=== PATIENT | female | born 1950 | race Caucasian/White ===

== ENCOUNTER 2016-10-11 08:00 | Outpatient (CLI) | payer MEDICAID | END 2016-10-11 08:01 | disposition home or self-care (01) | DX: E11.9 Type 2 diabetes mellitus without complications (principal); I10 Essential (primary) hypertension ==

== ENCOUNTER 2016-10-22 14:11 | Emergency (ER) | payer MEDICAID ==
[2016-10-22] MEDS ORDERED: HYDROmorphone 1 MG/ML SYRINGE IM STA (14:26)
[2016-10-22] MEDS ORDERED: HYDROmorphone 1 MG/ML SYRINGE ONE (14:26)
== END 2016-10-22 14:35 | disposition home or self-care (01) ==
DX: M54.5 Low back pain (principal); Z86.73 Personal history of transient ischemic attack (TIA), and cerebral infarction without residual deficits; Z66 Do not resuscitate; R03.0 Elevated blood-pressure reading, without diagnosis of hypertension; E11.9 Type 2 diabetes mellitus without complications; Z79.84 Long term (current) use of oral hypoglycemic drugs
CPT/HCPCS: 96372; 99283; 99284; J1170

== ENCOUNTER 2016-10-31 14:43 | Outpatient (CLI) | payer MEDICAID | END 2016-10-31 14:44 | disposition home or self-care (01) | DX: M25.562 Pain in left knee (principal); M17.12 Unilateral primary osteoarthritis, left knee ==

== ENCOUNTER 2016-12-08 12:05 | Outpatient (CLI) | payer MEDICAID | END 2016-12-08 12:25 | disposition critical access hospital (66) | LOC: EMS 12:05 | PROVIDERS: ATTEND Surgery | DX: R51 Headache (principal); M54.5 Low back pain | CPT/HCPCS: A0425; A0429 ==

== ENCOUNTER 2016-12-08 12:26 | Emergency (ER) | payer MEDICAID ==
[2016-12-08] MEDS ORDERED: KETOROLAC 60 MG/2 ML VIAL IM STA (13:21)
[2016-12-08] MEDS ORDERED: HYDROmorphone 1 MG/ML SYRINGE IM STA (13:21)
[2016-12-08] MEDS ORDERED: ONDANSETRON 4 MG/2 ML VIAL IM STA (13:21)
[2016-12-08] MEDS ORDERED: HYDROmorphone 1 MG/ML SYRINGE ONE (13:28)
[2016-12-08] MEDS ORDERED: ONDANSETRON 4 MG/2 ML VIAL ONE (13:28)
[2016-12-08] MEDS ORDERED: KETOROLAC 60 MG/2 ML VIAL ONE (13:28)
== END 2016-12-08 14:36 | disposition home or self-care (01) ==
DX: G43.009 Migraine without aura, not intractable, without status migrainosus (principal); M54.40 Lumbago with sciatica, unspecified side; E11.9 Type 2 diabetes mellitus without complications; Z79.84 Long term (current) use of oral hypoglycemic drugs; I10 Essential (primary) hypertension; I48.91 Unspecified atrial fibrillation; Z79.02 Long term (current) use of antithrombotics/antiplatelets; J44.9 Chronic obstructive pulmonary disease, unspecified; Z66 Do not resuscitate

== ENCOUNTER 2016-12-08 16:19 | Outpatient (CLI) | payer MEDICAID | END 2016-12-08 16:20 | disposition critical access hospital (66) | LOC: EMS 16:19 | PROVIDERS: ATTEND Surgery | DX: S09.90XA Unspecified injury of head, initial encounter (principal); W18.30XA Fall on same level, unspecified, initial encounter; Y92.039 Unspecified place in apartment as the place of occurrence of the external cause | CPT/HCPCS: A0425; A0429 ==

== ENCOUNTER 2016-12-08 16:41 | Emergency (ER) | payer MEDICAID ==
[2016-12-08] MEDS ORDERED: oxyCOD/ACETAMIN 5 MG/325 MG TABLET PO STA (16:47)
[2016-12-08] MEDS ORDERED: oxyCOD/ACETAMIN 5 MG/325 MG TABLET PO ONE (16:58)
[2016-12-08] MEDS ORDERED: IOPAMIDOL-300 100 ML VIAL IVP ONE (19:17)
[2016-12-08] MEDS ORDERED: KETOROLAC 60 MG/2 ML VIAL IVP STA (20:28)
[2016-12-08] MEDS ORDERED: KETOROLAC 30 MG/ML VIAL ONE (20:30)
== END 2016-12-09 00:55 | disposition home or self-care (01) ==
DX: S09.90XA Unspecified injury of head, initial encounter (principal); S00.03XA Contusion of scalp, initial encounter; W01.198A Fall on same level from slipping, tripping and stumbling with subsequent striking against other object, initial encounter; Y93.89 Activity, other specified; Y92.000 Kitchen of unspecified non-institutional (private) residence as the place of occurrence of the external cause; Y99.8 Other external cause status; G43.911 Migraine, unspecified, intractable, with status migrainosus; R09.02 Hypoxemia; E87.2 Acidosis; R60.0 Localized edema; E66.01 Morbid (severe) obesity due to excess calories; Z68.42 Body mass index [BMI] 45.0-49.9, adult; M54.40 Lumbago with sciatica, unspecified side; E11.9 Type 2 diabetes mellitus without complications; Z79.84 Long term (current) use of oral hypoglycemic drugs; I10 Essential (primary) hypertension; I48.91 Unspecified atrial fibrillation; Z79.02 Long term (current) use of antithrombotics/antiplatelets; J44.9 Chronic obstructive pulmonary disease, unspecified; Z86.73 Personal history of transient ischemic attack (TIA), and cerebral infarction without residual deficits; Z66 Do not resuscitate
CPT/HCPCS: 36415; 36600; 70450; 71275; 80053; 82803; 83690; 85025; 96372; 96374; 99283; 99284; A9270; J1170; Q9967

== ENCOUNTER 2016-12-09 06:52 | Outpatient (CLI) | payer MEDICAID | END 2016-12-09 06:53 | disposition EMS.NT | DX: Z03.89 Encounter for observation for other suspected diseases and conditions ruled out (principal); W06.XXXA Fall from bed, initial encounter; Y92.003 Bedroom of unspecified non-institutional (private) residence as the place of occurrence of the external cause ==

== ENCOUNTER 2017-01-10 08:48 | Outpatient (CLI) | payer MEDICAID | END 2017-01-10 08:49 | disposition home or self-care (01) | DX: E78.1 Pure hyperglyceridemia (principal); E11.9 Type 2 diabetes mellitus without complications ==

== ENCOUNTER 2017-02-06 10:20 | Outpatient (CLI) | payer MEDICAID | END 2017-02-06 10:21 | disposition home or self-care (01) | LOC: SC 10:20 | PROVIDERS: ATTEND Nurse Practitioner Family | DX: G47.33 Obstructive sleep apnea (adult) (pediatric) (principal) | CPT/HCPCS: 99212; 99213 ==

== ENCOUNTER 2017-02-14 15:54 | Outpatient (CLI) | payer MEDICAID | END 2017-02-14 15:55 | disposition critical access hospital (66) | LOC: EMS 15:54 | PROVIDERS: ATTEND Surgery | DX: M79.605 Pain in left leg (principal); M54.5 Low back pain; W18.39XA Other fall on same level, initial encounter; Y92.039 Unspecified place in apartment as the place of occurrence of the external cause | CPT/HCPCS: A0425; A0429 ==

== ENCOUNTER 2017-02-14 16:13 | Emergency (ER) | payer MEDICAID ==
[2017-02-14 16:21] VITALS: BP 119/65
[2017-02-14] MEDS ORDERED: HYDROcod/ACETAM 5/325 MG TABLET PO STA (16:26)
[2017-02-14] MEDS ORDERED: LIDOCAINE PATCH 5% TOP STA (16:26)
--- NOTE | 2017-02-14 16:28 | ED Physician Documentation ---
History of Present Illness - Stated complaint Stated Complaint: BACK PX - Chief complaint Chief Complaint: Back Pain - Additonal information Additional information: hx from pt 66 f known spinal stenosis, has had imaging, has a economic development specialist, is planning to get surgery ever increasing back pain and occasional radicular pain to ant left leg spine rx norco 1-2 per day pain is still severe today pain was bad enough to cause her L leg to give way - no fall though some numbness to ant L thigh has been present a week pt has not yet called her economic development specialist or PMD about the increasing pain no abd pain no fever no urinary sx no incont Review of Systems Constitutional: denies: Fever Cardiac: denies: Chest pain / pressure GI: denies: Abdominal Pain : denies: Dysuria, Incontinent Musculoskeletal: reports: Back pain Neurologic: reports: Focal weakness (L leg ghave way 2/2 pain, prior CVA left right leg slightly weak), Numbness (ant L thigh X 1 week) Immunocompromised: denies: Immunocompromised PD PAST MEDICAL HISTORY - Past Medical History Cardiovascular: Hypertension, Atrial fibrillation Respiratory: COPD, Shortness of breath, CPAP use Neuro: CVA Endocrine/Autoimmune: Type 2 diabetes GI: Hiatal hernia, Cholelithiasis 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 : 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 HEENT: Other Psych: Depression Musculoskeletal: None Derm: None - Past Surgical History Past Surgical History: Yes General: Cholecystectomy, Appendectomy, Bowel surgery, Hiatal hernia repair, Colonoscopy Ortho: Other /SPONSORSHIP COORDINATOR: section HEENT: Tonsil/Adenoidectomy - Present Medications Home Medications: Ambulatory Orders Medication Instructions Recorded Confirmed Fenofibrate [Lipofen] 54 mg PO HS 02/18/13 02/14/17 Calcium Carb/Vit D3/Minerals 1 each PO DAILY 12/26/13 02/14/17 [Calcium 1,200 mg Tablet Chew] Cholecalciferol (Vitamin D3) 2,000 unit PO DAILY 12/26/13 02/14/17 [Vitamin D] Clopidogrel [Plavix] 75 mg PO DAILY 01/06/14 02/14/17 Sertraline HCl [Zoloft] 100 mg PO QDBREAKFAST 12/03/14 02/14/17 Acetaminophen [Tylenol Extra 1,000 mg PO DAILY PRN 12/12/14 02/14/17 Strength] Vitamin B Complex 1,000 mg PO DAILY 01/04/15 02/14/17 Topiramate [Topiramate ER] 50 mg PO BID 07/27/15 02/14/17 Trazodone HCl 100 mg PO QPM 01/23/16 02/14/17 Albuterol Sulfate [Proventil Hfa 1 - 2 puffs IH Q4H PRN #1 02/22/16 02/14/17 Inhaler] hfa.aer.ad Bupropion HCl [Wellbutrin Sr] 300 mg PO DAILY 03/22/16 02/14/17 Gabapentin 600 mg PO TID 03/22/16 02/14/17 metFORMIN [Glucophage] 500 mg PO BID 03/22/16 02/14/17 Magnesium Hydroxide [Milk of 400 mg PO DAILY PRN #240 ml 07/29/16 02/14/17 Magnesia] HYDROcod/ACETAM 5/325 [[place] 5/325] 1 - 2 ea PO Q6H PRN #15 tablet 10/22/16 Amitriptyline [Elavil] 25 mg QPM 12/08/16 02/14/17 Fenofibrate 54 mg PO DAILY 02/14/17 02/14/17 Lidocaine Patch 5% [Lidoderm Patch] 1 each TOP DAILY PRN #10 patch 02/14/17 - Allergies Allergies/Adverse Reactions: Allergies Allergy/AdvReac Type Severity Reaction Status Date / Time No Known Drug Allergies Allergy Verified 12/08/16 16:52 - Social History Does the pt smoke?: No Smoking Status: Never smoker Does the pt drink ETOH?: No Does the pt have substance abuse?: No - Immunizations Immunizations are current?: Yes Immunizations: TDAP >10years/unknown - POLST Patient has POLST: Yes POLST Status: DNR PD ED PE NORMAL - Vitals Vital signs reviewed: Yes - Cardiac Cardiac: RRR - Respiratory Respiratory: No respiratory distress, Clear bilaterally - Abdomen Abdomen: Soft, Non tender, Other (no pulsatile mass) - Back Back: No spinal TTP (no redness warmth swelling), Other (TTP soft tissue very low lumbar region near pelvis) - Neuro Neuro: No motor deficit, No sensory deficit, Other (deneis saddle anesthesia, patellar DTR 1/4 yajaira, no ankle clonus, neg SLR yajaira, hip flex and knee ext approx 4/5 yajaira, foot dorsi plantar and great toe ext 5/5) Results - Vitals Vitals: Vital Signs - 24 hr 02/14/17 16:17 Temperature 36.7 C Heart Rate 100 Respiratory 20 Rate Blood Pressure 119/65 O2 Saturation 95 Oxygen O2 Source [With Activity] Nasal cannula O2 Source [Without Activity] Room air O2 Source Room air PD MEDICAL DECISION MAKING - ED course ED course: pt has increasing but chronic back pain that has already been imaged and worked up and she is under the care of a economic development specialist has rx for norco txed for acute pain with hydrocodone and lido patch in ER will add lido patches rx pt should call and discuss any further pain management / med adjustments with her PMD or economic development specialist Departure - Departure Disposition: Home, Self Care Clinical Impression: Back pain Qualifiers: Back pain location: low back pain Chronicity: chronic Back pain laterality: left Sciatica presence: without sciatica Qualified Code(s): M54.5 - Low back pain Condition: Good Instructions: ED Neck Back Pain General Follow-Up: Jim Potter MD [Primary Care Provider] - Prescriptions: Lidocaine Patch 5% [Lidoderm Patch] 1 each TOP DAILY PRN #10 patch PRN Reason: Pain Comments: Please talk to your economic development specialist about your increasing pain and about any further medication adjustments. In the mean time try adding the lidocaine patches - you can apply one patch to the spot that hurts the most for up to 12 hr a day Return if worse - specifically if you have any numbness to the groin, leaking urine, severe or bilateral weakness/numbness Discharge Date/Time: 02/14/17 16:46
[2017-02-14] MEDS ORDERED: HYDROcod/ACETAM 5/325 MG TABLET ONE (16:30)
[2017-02-14] MEDS ORDERED: LIDOCAINE PATCH 5% TOP ONE (16:30)
== END 2017-02-14 16:46 | disposition home or self-care (01) ==
LOC: EDUNIT# → ED 16:13
DX: M54.5 Low back pain (principal); I10 Essential (primary) hypertension; I48.91 Unspecified atrial fibrillation; J44.9 Chronic obstructive pulmonary disease, unspecified; E11.9 Type 2 diabetes mellitus without complications; Z86.73 Personal history of transient ischemic attack (TIA), and cerebral infarction without residual deficits
CPT/HCPCS: 99283; A9270

== ENCOUNTER 2017-03-12 20:55 | Emergency (ER) | payer MEDICAID ==
--- NOTE | 2017-03-12 21:11 | ED Physician Documentation ---
PD HPI BACK PAIN - Stated complaint Stated Complaint: BACK PX - Chief complaint Chief Complaint: Back Pain - History obtained from History obtained from: Patient - History of Present Illness Timing - onset: Chronic (chronic LBP but tonight inadequate relief with her ibuprofen and hydrocodone) Timing - details: Constant, Waxing and waning Pain level now: 10 Location: Lower, Left Quality: Pain, Similar to prior episodes Associated symptoms: No: Fever, Weakness, Numbness Improves with: Rest Worsened by: Movement Similar symptoms before: Diagnosis (spinal stenosis) Recently seen: Emergency Dept (T+R last month for similar symptoms) Review of Systems Constitutional: denies: Fever, Chills, Sweats Cardiac: reports: Reviewed and negative Respiratory: reports: Reviewed and negative GI: reports: Reviewed and negative : denies: Incontinent Musculoskeletal: reports: Back pain Neurologic: denies: Focal weakness, Numbness PD PAST MEDICAL HISTORY - Past Medical History Cardiovascular: Hypertension, Atrial fibrillation Respiratory: COPD, Shortness of breath, CPAP use Neuro: CVA Endocrine/Autoimmune: Type 2 diabetes GI: Hiatal hernia, Cholelithiasis 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 HEENT: Other Psych: Depression Musculoskeletal: None Derm: None - Past Surgical History Past Surgical History: Yes General: Cholecystectomy, Appendectomy, Bowel surgery, Hiatal hernia repair, Colonoscopy Ortho: Other /REELING MACHINE OPERATOR: section HEENT: Tonsil/Adenoidectomy - Present Medications Home Medications: Ambulatory Orders Medication Instructions Recorded Confirmed Fenofibrate [Lipofen] 54 mg PO HS 02/18/13 02/14/17 Calcium Carb/Vit D3/Minerals 1 each PO DAILY 12/26/13 02/14/17 [Calcium 1,200 mg Tablet Chew] Cholecalciferol (Vitamin D3) 2,000 unit PO DAILY 12/26/13 02/14/17 [Vitamin D] Clopidogrel [Plavix] 75 mg PO DAILY 01/06/14 02/14/17 Sertraline HCl [Zoloft] 100 mg PO QDBREAKFAST 12/03/14 02/14/17 Acetaminophen [Tylenol Extra 1,000 mg PO DAILY PRN 12/12/14 02/14/17 Strength] Vitamin B Complex 1,000 mg PO DAILY 01/04/15 02/14/17 Topiramate [Topiramate ER] 50 mg PO BID 07/27/15 02/14/17 Trazodone HCl 100 mg PO QPM 01/23/16 02/14/17 Albuterol Sulfate [Proventil Hfa 1 - 2 puffs IH Q4H PRN #1 02/22/16 02/14/17 Inhaler] hfa.aer.ad Bupropion HCl [Wellbutrin Sr] 300 mg PO DAILY 03/22/16 02/14/17 Gabapentin 600 mg PO TID 03/22/16 02/14/17 metFORMIN [Glucophage] 500 mg PO BID 03/22/16 02/14/17 Magnesium Hydroxide [Milk of 400 mg PO DAILY PRN #240 ml 07/29/16 02/14/17 Magnesia] HYDROcod/ACETAM 5/325 [[place] 5/325] 1 - 2 ea PO Q6H PRN #15 tablet 10/22/16 Amitriptyline [Elavil] 25 mg QPM 12/08/16 02/14/17 Fenofibrate 54 mg PO DAILY 02/14/17 02/14/17 Lidocaine Patch 5% [Lidoderm Patch] 1 each TOP DAILY PRN #10 patch 02/14/17 - Allergies Allergies/Adverse Reactions: Allergies Allergy/AdvReac Type Severity Reaction Status Date / Time No Known Drug Allergies Allergy Verified 12/08/16 16:52 - Social History Does the pt smoke?: No Smoking Status: Never smoker Does the pt drink ETOH?: No Does the pt have substance abuse?: No - Immunizations Immunizations are current?: Yes Immunizations: TDAP >10years/unknown - POLST Patient has POLST: Yes POLST Status: DNR PD ED PE NORMAL - Vitals Vital signs reviewed: Yes - General General: Alert and oriented X 3, Well developed/nourished, Other (appears uncomfortable due to pain) - Cardiac Cardiac: RRR, No murmur - Respiratory Respiratory: No respiratory distress, Clear bilaterally - Abdomen Abdomen: Soft, Non tender, Other (morbidly obese) - Extremities Extremities: No edema - Neuro Neuro: No motor deficit, No sensory deficit, Other (5/5 bilateral dorsi/ plantarflexion, LTS intact BLE, 2+/4 bilateral patellar DTRs) Results - Vitals Vitals: Vital Signs - 24 hr 03/12/17 03/12/17 03/12/17 21:02 21:52 22:19 Temperature 37.2 C Heart Rate 102 H 95 97 Respiratory 16 18 18 Rate Blood Pressure 175/89 H 162/89 H O2 Saturation 96 95 93 03/12/17 03/13/17 03/13/17 23:23 01:14 04:31 Temperature 36.8 C Heart Rate 96 74 74 Respiratory 18 19 16 Rate Blood Pressure 154/97 H 123/80 142/90 H O2 Saturation 93 94 96 Oxygen O2 Source [With Activity] Nasal cannula O2 Source [Without Activity] Room air O2 Source Room air PD MEDICAL DECISION MAKING - ED course Complexity details: reviewed old records, re-evaluated patient, considered differential, d/w patient ED course: patient had good relief after second dose of IM dilaudid (also given PO flexeril and decadron) and was able to ambulate to and from bathroom (using her walker). Held in ED for several hours while waiting for her ride. Departure - Departure Disposition: 01 Home, Self Care Clinical Impression: Back pain Condition: Good Instructions: ED Sciatica Follow-Up: Jim Potter MD [Primary Care Provider] - Discharge Date/Time: 03/13/17 04:31
[2017-03-12] MEDS ORDERED: HYDROmorphone 1 MG/ML SYRINGE IM STA ×2 (21:29→23:29)
[2017-03-12] MEDS ORDERED: DEXAMETHASONE 10 MG/ML VIAL PO STA (21:30)
[2017-03-12] MEDS ORDERED: CYCLOBENZAPRINE 10 MG TABLET PO STA (21:30)
[2017-03-12] MEDS ORDERED: HYDROmorphone 1 MG/ML SYRINGE ONE ×2 (21:31→23:30)
[2017-03-12] MEDS ORDERED: CYCLOBENZAPRINE 10 MG TABLET PO ONE (21:32)
[2017-03-12] MEDS ORDERED: DEXAMETHASONE 10 MG/ML VIAL ONE (21:32)
[2017-03-12] MEDS ORDERED: CHERRY SYRUP 10 ML UDC PO ONE (21:32)
[2017-03-13] MEDS ORDERED: LIDOCAINE PATCH 5% TOP STA (04:21)
[2017-03-13] MEDS ORDERED: LIDOCAINE PATCH 5% TOP ONE (04:25)
[2017-03-13 04:32] VITALS: BP 142/90
== END 2017-03-13 04:31 | disposition home or self-care (01) ==
LOC: ED 20:55
DX: M54.5 Low back pain (principal); G89.29 Other chronic pain; I10 Essential (primary) hypertension; I48.91 Unspecified atrial fibrillation; Z79.02 Long term (current) use of antithrombotics/antiplatelets; E11.9 Type 2 diabetes mellitus without complications; Z79.84 Long term (current) use of oral hypoglycemic drugs
CPT/HCPCS: 96372; 99283; 99284; A9270; J1170

== ENCOUNTER 2017-03-26 04:41 | Outpatient (CLI) | payer MEDICAID | END 2017-03-26 04:42 | disposition critical access hospital (66) | LOC: EMS 04:41 | PROVIDERS: ATTEND Surgery | DX: M54.5 Low back pain (principal) | CPT/HCPCS: A0425; A0429 ==

== ENCOUNTER 2017-03-26 05:00 | Emergency (ER) | payer MEDICAID ==
--- NOTE | 2017-03-26 05:49 | ED Physician Documentation ---
PD HPI BACK PAIN - Stated complaint Stated Complaint: BACK PAIN - Chief complaint Chief Complaint: Back Pain - History obtained from History obtained from: Patient - History of Present Illness Timing - onset: Chronic Timing - duration: Hours Timing - details: Gradual onset Pain level now: 8 Location: Lower, Right, Left Quality: Pain, Similar to prior episodes Associated symptoms: No: Fever, Weakness, Numbness, Incontinent of urine, Unable to urinate, Hematuria, Incontinent of stool Improves with: Rest Worsened by: Movement Similar symptoms before: Diagnosis (spinal stenosis) Recently seen: Emergency Dept (T&R from this ED 2 weeks ago for same symptoms, I evaluated her at that time) - Additional information Additional information: c/o exacerbation of her chronic LBP (due to spinal stenosis). Since her last ED visit, she has seen PMD and communicated with her orthopedic surgeon's office; patient says plan is to perform surgery at an as yet [id number] date, but that there was discussion of planning for local steroid injections soon Review of Systems Constitutional: reports: Reviewed and negative : denies: Incontinent Musculoskeletal: reports: Back pain. 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 HEENT: Other Psych: Depression Musculoskeletal: None Derm: None - Past Surgical History Past Surgical History: Yes General: Cholecystectomy, Appendectomy, Bowel surgery, Hiatal hernia repair, Colonoscopy Ortho: Other /PRODUCE TEAM LEAD: section HEENT: Tonsil/Adenoidectomy - Present Medications Home Medications: Ambulatory Orders Medication Instructions Recorded Confirmed Fenofibrate [Lipofen] 54 mg PO HS 02/18/13 02/14/17 Calcium Carb/Vit D3/Minerals 1 each PO DAILY 12/26/13 02/14/17 [Calcium 1,200 mg Tablet Chew] Cholecalciferol (Vitamin D3) 2,000 unit PO DAILY 12/26/13 02/14/17 [Vitamin D] Clopidogrel [Plavix] 75 mg PO DAILY 01/06/14 02/14/17 Sertraline HCl [Zoloft] 100 mg PO QDBREAKFAST 12/03/14 02/14/17 Acetaminophen [Tylenol Extra 1,000 mg PO DAILY PRN 12/12/14 02/14/17 Strength] Vitamin B Complex 1,000 mg PO DAILY 01/04/15 02/14/17 Topiramate [Topiramate ER] 50 mg PO BID 07/27/15 02/14/17 Trazodone HCl 100 mg PO QPM 01/23/16 02/14/17 Albuterol Sulfate [Proventil Hfa 1 - 2 puffs IH Q4H PRN #1 02/22/16 02/14/17 Inhaler] hfa.aer.ad Bupropion HCl [Wellbutrin Sr] 300 mg PO DAILY 03/22/16 02/14/17 Gabapentin 600 mg PO TID 03/22/16 02/14/17 metFORMIN [Glucophage] 500 mg PO BID 03/22/16 02/14/17 Magnesium Hydroxide [Milk of 400 mg PO DAILY PRN #240 ml 07/29/16 02/14/17 Magnesia] HYDROcod/ACETAM 5/325 [[place] 5/325] 1 - 2 ea PO Q6H PRN #15 tablet 10/22/16 Amitriptyline [Elavil] 25 mg QPM 12/08/16 02/14/17 Fenofibrate 54 mg PO DAILY 02/14/17 02/14/17 Lidocaine Patch 5% [Lidoderm Patch] 1 each TOP DAILY PRN #10 patch 02/14/17 Hydrocodone/Acetaminophen [Vicodin 1 each PO Q6HR PRN #12 tablet 03/26/17 5-300 mg Tablet] - Allergies Allergies/Adverse Reactions: Allergies Allergy/AdvReac Type Severity Reaction Status Date / Time No Known Drug Allergies Allergy Verified 12/08/16 16:52 - Social History Does the pt smoke?: No Smoking Status: Never smoker Does the pt drink ETOH?: No Does the pt have substance abuse?: No - Immunizations Immunizations are current?: Yes Immunizations: TDAP >10years/unknown - POLST Patient has POLST: Yes POLST Status: DNR PD ED PE NORMAL - Vitals Vital signs reviewed: Yes - General General: Alert and oriented X 3. No: No acute distress (appears uncomfortable) - Derm Derm: Normal color, Warm and dry - Extremities Extremities: No edema - Neuro Neuro: No motor deficit, No sensory deficit, Other (4/5 bilateral plantarflexion , LTS intact (feet)) PD ED PE EXPANDED - General General: In Pain - Back Back: Other (tenderness bilateral paralumbar) Results - Vitals Vitals: Vital Signs - 24 hr 03/26/17 03/26/17 03/26/17 05:02 07:30 08:58 Temperature 36.9 C Heart Rate 93 95 98 Respiratory 18 14 16 Rate Blood Pressure 146/84 H 127/66 137/63 H O2 Saturation 98 95 94 03/26/17 12:48 Temperature Heart Rate 67 Respiratory 14 Rate Blood Pressure 121/65 O2 Saturation 100 Oxygen O2 Source [With Activity] Nasal cannula O2 Source [Without Activity] Room air O2 Source Room air PD MEDICAL DECISION MAKING - ED course Complexity details: reviewed old records, re-evaluated patient, considered differential, d/w patient ED course: as with previous visit, patient had significant improvement after dilaudid 1mg IM x 2 doses, decadron and flexeril PO Departure - Departure Disposition: 01 Home, Self Care Clinical Impression: Back pain Qualifiers: Back pain location: low back pain Chronicity: chronic Back pain laterality: bilateral Sciatica presence: without sciatica Qualified Code(s): M54.5 - Low back pain Condition: Good Instructions: ED Neck Back Pain General Follow-Up: Jim Potter MD [Primary Care Provider] - Prescriptions: Hydrocodone/Acetaminophen [Vicodin 5-300 mg Tablet] 1 each PO Q6HR PRN #12 tablet PRN Reason: Pain Discharge Date/Time: 03/26/17 10:15
[2017-03-26] MEDS ORDERED: HYDROmorphone 1 MG/ML SYRINGE IM STA ×2 (06:10→07:45)
[2017-03-26] MEDS ORDERED: DEXAMETHASONE 10 MG/ML VIAL PO STA (06:11)
[2017-03-26] MEDS ORDERED: CYCLOBENZAPRINE 10 MG TABLET PO STA (06:11)
[2017-03-26] MEDS ORDERED: CYCLOBENZAPRINE 10 MG TABLET PO ONE (06:13)
[2017-03-26] MEDS ORDERED: HYDROmorphone 1 MG/ML SYRINGE ONE ×2 (06:13→08:00)
[2017-03-26] MEDS ORDERED: DEXAMETHASONE 10 MG/ML VIAL ONE (06:13)
[2017-03-26 12:49] VITALS: BP 121/65
== END 2017-03-26 10:15 | disposition home or self-care (01) ==
LOC: EDUNIT# → ED 05:00
DX: M48.06 Spinal stenosis, lumbar region (principal); G89.29 Other chronic pain; I10 Essential (primary) hypertension; I48.91 Unspecified atrial fibrillation; J44.9 Chronic obstructive pulmonary disease, unspecified; E11.9 Type 2 diabetes mellitus without complications; F32.9 Major depressive disorder, single episode, unspecified; Z90.49 Acquired absence of other specified parts of digestive tract; Z86.73 Personal history of transient ischemic attack (TIA), and cerebral infarction without residual deficits; Z79.84 Long term (current) use of oral hypoglycemic drugs
CPT/HCPCS: 96372; 99283; 99284; A9270; J1170

== ENCOUNTER 2017-04-05 10:10 | Outpatient (CLI) | payer MEDICAID | END 2017-04-05 10:11 | disposition home or self-care (01) | LOC: SC 10:10 | PROVIDERS: ATTEND Nurse Practitioner Family | DX: G47.33 Obstructive sleep apnea (adult) (pediatric) (principal) | CPT/HCPCS: 99212; 99214 ==

== ENCOUNTER 2017-04-28 14:29 | Outpatient (CLI) | payer MEDICAID ==
[2017-04-28 19:38] LABS: CALCIUM 9.7 mg/dL (8.5-10.3); CREATININE 1.1 mg/dL (0.4-1.0); POTASSIUM 4.3 mmol/L (3.5-5.0)
[2017-04-28 20:45] LABS: HEMOGLOBIN A1C 0.59 g/dL
== END 2017-04-28 14:30 | disposition home or self-care (01) ==
LOC: LAB.N 14:29
PROVIDERS: ATTEND Family Medicine
DX: E11.9 Type 2 diabetes mellitus without complications (principal)
CPT/HCPCS: 36415; 80048; 83036

== ENCOUNTER 2017-08-30 13:32 | Outpatient (CLI) | payer MEDICARE, MEDICAID | END 2017-08-30 13:33 | disposition home or self-care (01) | LOC: SC 13:32 | PROVIDERS: ATTEND Nurse Practitioner Family | DX: G47.33 Obstructive sleep apnea (adult) (pediatric) (principal) | CPT/HCPCS: 99214; G0463; 99212 ==

== ENCOUNTER 2017-09-15 10:27 | Outpatient (CLI) | payer MEDICARE, MEDICAID ==
[2017-09-15 15:53] LABS: BASOPHILS % (AUTO) 0.6 %; EOSINOPHILS # (AUTO) 0.2 10^3/uL (0.0-0.7); EOSINOPHILS % (AUTO) 2.6 %; HCT - HEMATOCRIT 34.7 % (37.0-47.0); HGB - HEMOGLOBIN 11.6 g/dL (12.0-16.0); LYMPHOCYTES # (AUTO) 1.4 10^3/uL (1.5-3.5); LYMPHOCYTES % (AUTO) 23.2 %; MEAN CORPUSCULAR HEMOGLOBIN 28.2 pg (27.0-31.0); MEAN CORPUSCULAR HGB CONC 33.3 g/dL (32.0-36.0); MEAN CORPUSCULAR VOLUME 84.5 fL (81.0-99.0); MEAN PLATELET VOLUME 8.1 fL (7.9-10.8); MONOCYTES # (AUTO) 0.5 10^3/uL (0.0-1.0); MONOCYTES % (AUTO) 8.6 %; NEUTROPHILS # (AUTO) 3.9 10^3/uL (1.5-6.6); NUCLEATED RED BLOOD CELLS AUTO 0.2 /100WBC; RED BLOOD COUNT 4.11 10^6/uL (4.20-5.40); RED CELL DISTRIBUTION WIDTH 15.9 % (12.0-15.0)
[2017-09-15 16:11] LABS: HEMOGLOBIN A1C 0.49 g/dL
[2017-09-15 16:13] LABS: ALBUMIN/GLOBULIN RATIO 0.9 (1.0-2.2); BILIRUBIN,TOTAL 0.4 mg/dL (0.2-1.0); BUN - BLOOD UREA NITROGEN 17 mg/dL (6-20); CALCIUM 9.7 mg/dL (8.5-10.3); CARBON DIOXIDE - CO2 25 mmol/L (21-32); CHLORIDE 102 mmol/L (101-111); CREATININE 0.9 mg/dL (0.4-1.0); GFR - MDRD 63 (>89); GLUCOSE 116 mg/dL (70-100); IRON 33 ug/dL (28-170); POTASSIUM 3.8 mmol/L (3.5-5.0); SODIUM 137 mmol/L (135-145); TOTAL IRON BINDING CAPACITY 518 ug/dL (250-450); TOTAL PROTEIN 7.5 g/dL (6.7-8.2); TRANSFERRIN 370 mg/dL (192-382)
== END 2017-09-15 10:28 | disposition home or self-care (01) ==
LOC: LAB.N 10:27
PROVIDERS: ATTEND Family Medicine
DX: D50.9 Iron deficiency anemia, unspecified (principal); E11.9 Type 2 diabetes mellitus without complications; I10 Essential (primary) hypertension
CPT/HCPCS: 36415; 80053; 82728; 83036; 83540; 84466; 85025

== ENCOUNTER 2017-10-25 15:00 | Outpatient (CLI) | payer MEDICARE, MEDICAID | END 2017-10-25 15:01 | disposition home or self-care (01) | LOC: SC 15:00 | PROVIDERS: ATTEND Nurse Practitioner Family | DX: G47.33 Obstructive sleep apnea (adult) (pediatric) (principal) | CPT/HCPCS: 99214; G0463; 99212 ==

== ENCOUNTER 2017-11-16 12:06 | Outpatient (CLI) | payer MEDICARE, MEDICAID | END 2017-11-16 12:07 | disposition critical access hospital (66) | LOC: EMS 12:06 | PROVIDERS: ATTEND Surgery | DX: R51 Headache (principal); R29.810 Facial weakness; R47.9 Unspecified speech disturbances; R41.0 Disorientation, unspecified; R46.4 Slowness and poor responsiveness | CPT/HCPCS: A0425; A0429 ==

== ENCOUNTER 2017-11-16 12:24 | Emergency (ER) | payer MEDICARE, MEDICAID ==
[2017-11-16] MEDS ORDERED: KETOROLAC 60 MG/2 ML VIAL IVP STA (12:32)
[2017-11-16] MEDS ORDERED: LORazepam 2 MG/ML VIAL IVP STA (12:32)
--- NOTE | 2017-11-16 12:49 | ED Physician Documentation ---
PD HPI FOCAL NEURO - Stated complaint Stated Complaint: CVA - Chief complaint Chief Complaint: Neuro - History obtained from History obtained from: Patient, EMS - History of Present Illness Timing - onset: How many hours ago (2) Timing - duration: Hours (2) Timing - details: Gradual onset Severity of deficit: Mild Weakness: No: Face, Arm, Hand, Leg, Foot, Right, Left, Other Numbness: Hand, Right. No: Face, Arm, Leg, Foot, Left, Other Associated symptoms: Headache (states this feels like her normal headache, she complains of stuttering speech today. also typical of her migraines. May have had an asymmetric smile earlier, but normal now. Also has R sided residual weakness from prior stroke.) Baseline status: positive: A&OX3, ambulatory, indep Similar symptoms before: Diagnosis (complex migraines) Recently seen: Not recently seen (has been receiving botox for her headaches every 3 months.) Review of Systems Ten Systems: 10 systems reviewed and negative Constitutional: denies: Fever, Chills Ears: denies: Ear pain Nose: denies: Rhinorrhea / runny nose, Congestion PD PAST MEDICAL HISTORY - Past Medical History Cardiovascular: Hypertension, Atrial fibrillation Respiratory: COPD, Shortness of breath, CPAP use Neuro: CVA Endocrine/Autoimmune: Type 2 diabetes GI: Hiatal hernia, Cholelithiasis 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 HEENT: Other Psych: Depression Musculoskeletal: None Derm: None - Past Surgical History Past Surgical History: Yes General: Cholecystectomy, Appendectomy, Bowel surgery, Hiatal hernia repair, Colonoscopy Ortho: Other /TAB CARD PRESS OPERATOR: section HEENT: Tonsil/Adenoidectomy - Present Medications Home Medications: Ambulatory Orders Medication Instructions Recorded Confirmed Fenofibrate [Lipofen] 54 mg PO HS 02/18/13 02/14/17 Calcium Carb/Vit D3/Minerals 1 each PO DAILY 12/26/13 02/14/17 [Calcium 1,200 mg Tablet Chew] Cholecalciferol (Vitamin D3) 2,000 unit PO DAILY 12/26/13 02/14/17 [Vitamin D] Clopidogrel [Plavix] 75 mg PO DAILY 01/06/14 02/14/17 Sertraline HCl [Zoloft] 100 mg PO QDBREAKFAST 12/03/14 02/14/17 Acetaminophen [Tylenol Extra 1,000 mg PO DAILY PRN 12/12/14 02/14/17 Strength] Vitamin B Complex 1,000 mg PO DAILY 01/04/15 02/14/17 Topiramate [Topiramate ER] 50 mg PO BID 07/27/15 02/14/17 Trazodone HCl 100 mg PO QPM 01/23/16 02/14/17 Albuterol Sulfate [Proventil Hfa 1 - 2 puffs IH Q4H PRN #1 02/22/16 02/14/17 Inhaler] hfa.aer.ad Bupropion HCl [Wellbutrin Sr] 300 mg PO DAILY 03/22/16 02/14/17 Gabapentin 600 mg PO TID 03/22/16 02/14/17 metFORMIN [Glucophage] 500 mg PO BID 03/22/16 02/14/17 Magnesium Hydroxide [Milk of 400 mg PO DAILY PRN #240 ml 07/29/16 02/14/17 Magnesia] HYDROcod/ACETAM 5/325 [[place] 5/325] 1 - 2 ea PO Q6H PRN #15 tablet 10/22/16 Amitriptyline [Elavil] 25 mg QPM 12/08/16 02/14/17 Fenofibrate 54 mg PO DAILY 02/14/17 02/14/17 Lidocaine Patch 5% [Lidoderm Patch] 1 each TOP DAILY PRN #10 patch 02/14/17 Hydrocodone/Acetaminophen [Vicodin 1 each PO Q6HR PRN #12 tablet 03/26/17 5-300 mg Tablet] Nitrofurantoin Monohyd/M-Cryst 100 mg PO BID #10 capsule 11/16/17 [Macrobid 100 mg Capsule] - Allergies Allergies/Adverse Reactions: Allergies Allergy/AdvReac Type Severity Reaction Status Date / Time No Known Drug Allergies Allergy Verified 12/08/16 16:52 - Social History Does the pt smoke?: No Smoking Status: Never smoker Does the pt drink ETOH?: No Does the pt have substance abuse?: No - Immunizations Immunizations are current?: Yes Immunizations: TDAP >10years/unknown - POLST Patient has POLST: Yes POLST Status: DNR PD ED PE NORMAL - Vitals Vital signs reviewed: Yes - General General: Alert and oriented X 3, No acute distress, Well developed/nourished - HEENT HEENT: Atraumatic, PERRL, Ears normal, Moist mucous membranes, Pharynx benign - Neck Neck: Supple, no meningeal sign - Cardiac Cardiac: RRR, Strong equal pulses - Respiratory Respiratory: No respiratory distress, Clear bilaterally - Abdomen Abdomen: Soft, Non tender, Non distended - Derm Derm: Warm and dry, No rash - Extremities Extremities: No tenderness to palpate, Normal ROM s pain - Neuro Neuro: Alert and oriented X 3 - Psych Psych: Normal mood NIHSS - Time Time: 12:35 - Level of Consciousness Level of consciousness: (0) Alert, Keenly responsive LOC Questions: (0) Answers both Q's correct LOC Commands: (0) Performs both correctly - Gaze Best Gaze: (0) Normal - Visual Visual: (0) No loss - Facial Palsy Facial Palsy: (0) Normal, symmetrical movement - Motor Arms (both separate) Motor Arm (right): (0) No drift Motor Arm (left): (0) No drift - Motor Legs (both separate) Motor Leg (right): (0) No drift Motor Leg (left): (0) No drift - Limb Ataxia Limb Ataxia: (0) Absent - Sensory Sensory: (0) Normal - Best Language Best Language: (0) No aphasia - Dysarthria Dysarthria: (0) Normal - Extinction and Inattention (formally neg Extinction and inattention: (0) No abnormality - Total Score/Results Total Score/Result: 0 Results - Vitals Vitals: Oxygen O2 Source [With Activity] Nasal cannula O2 Source [Without Activity] Room air O2 Source Room air - Labs Labs: Microbiology 11/16/17 15:35 Urine Culture - Final Urine,Catheterized Escherichia Coli Laboratory Tests 11/16/17 11/16/17 11/16/17 12:45 12:45 15:35 WBC 8.1 RBC 4.58 Hgb 12.3 Hct 38.4 MCV 84.0 MCH 26.9 L MCHC 32.0 RDW 16.6 H Plt Count 337 MPV 7.4 L Neut # 5.0 Lymph # 2.2 [place] # 0.7 Eos # 0.1 Baso # 0.1 Absolute Nucleated RBC 0.01 Nucleated RBC % 0.1 Sodium 136 Potassium 4.6 Chloride 103 Carbon Dioxide 25 Anion Gap 8.0 BUN 23 H Creatinine 0.9 Estimated GFR (MDRD) 63 L Glucose 102 H Calcium 9.8 Total Bilirubin 0.6 AST 18 ALT 14 Alkaline Phosphatase 85 Total Protein 8.5 H Albumin 3.8 Globulin 4.7 H Albumin/Globulin Ratio 0.8 L Lipase 42 Urine Color YELLOW Urine Clarity CLEAR Urine pH 5.5 Ur Specific [place] >=1.030 H Urine Protein NEGATIVE Urine Glucose (UA) NEGATIVE Urine Ketones NEGATIVE Urine Occult Blood NEGATIVE Urine Nitrite POSITIVE H Urine Bilirubin NEGATIVE Urine Urobilinogen 0.2 (NORMAL) Ur Leukocyte Esterase TRACE H Urine RBC 0-5 Urine WBC 6-10 H Ur Squamous Epith Cells FEW Squamous Urine Bacteria Moderate H Ur Microscopic Review INDICATED Urine Culture Comments INDICATED - Rads (name of study) Head CT Radiology: Prelim report reviewed, EMP read contemporaneously, See rad report ( No acute intracranial abnormality) PD MEDICAL DECISION MAKING - ED course Complexity details: reviewed old records, reviewed results, re-evaluated patient , considered differential, d/w patient ED course: Patient is a 67-year-old female who presents to the emergency department for appears her typical complex migraine headache. Given Toradol and Ativan. Symptoms resolved and she returned to her normal baseline. She also states that she had been feeling weak for the past few days, appears to have a UTI and will treat for this. She is well-appearing, nontoxic. No evidence of new stroke. We will continue supportive care and follow-up with her doctor. Patient counseled regarding signs and symptoms for which I believe and urgent re -evaluation would be necessary. Patient with good understanding of and agreement to plan and is comfortable going home at this time This document was made in part using voice recognition software. While efforts are made to proofread this document, sound alike and grammatical errors may occur. Departure - Departure Disposition: 01 Home, Self Care Clinical Impression: Headache Qualifiers: Headache type: unspecified Headache chronicity pattern: acute headache Intractability: not intractable Qualified Code(s): R51 - Headache UTI (urinary tract infection) Qualifiers: Urinary tract infection type: acute cystitis Hematuria presence: without hematuria Qualified Code(s): N30.00 - Acute cystitis without hematuria Condition: Good Instructions: ED Headache Migraine, ED UTI Cystitis Female Follow-Up: Jim Potter MD [Primary Care Provider] - Within 1 week Prescriptions: Nitrofurantoin Monohyd/M-Cryst [Macrobid 100 mg Capsule] 100 mg PO BID #10 capsule Comments: Rest today. Return if you worsen. Take all antibiotics until gone. Discharge Date/Time: 11/16/17 16:34
[2017-11-16 12:51] LABS: BASOPHILS # (AUTO) 0.1 10^3/uL (0.0-0.1); BASOPHILS % (AUTO) 0.7 %; EOSINOPHILS # (AUTO) 0.1 10^3/uL (0.0-0.7); EOSINOPHILS % (AUTO) 1.1 %; HGB - HEMOGLOBIN 12.3 g/dL (12.0-16.0); LYMPHOCYTES # (AUTO) 2.2 10^3/uL (1.5-3.5); LYMPHOCYTES % (AUTO) 27.6 %; MEAN CORPUSCULAR HEMOGLOBIN 26.9 pg (27.0-31.0); MEAN PLATELET VOLUME 7.4 fL (7.9-10.8); MONOCYTES # (AUTO) 0.7 10^3/uL (0.0-1.0); MONOCYTES % (AUTO) 8.6 %; PLT - PLATELET COUNT 337 10^3/uL (130-450); RED BLOOD COUNT 4.58 10^6/uL (4.20-5.40); RED CELL DISTRIBUTION WIDTH 16.6 % (12.0-15.0); WHITE BLOOD COUNT 8.1 x10^3/uL (4.8-10.8)
[2017-11-16 13:01] LABS: ALBUMIN 3.8 g/dL (3.2-5.5); ALBUMIN/GLOBULIN RATIO 0.8 (1.0-2.2); BILIRUBIN,TOTAL 0.6 mg/dL (0.2-1.0); CALCIUM 9.8 mg/dL (8.5-10.3); CREATININE 0.9 mg/dL (0.4-1.0); TOTAL PROTEIN 8.5 g/dL (6.7-8.2)
--- NOTE | 2017-11-16 13:19 | CT Report ---
EXAM: CT HEAD EXAM DATE: 11/16/2017 01:03 PM. CLINICAL HISTORY: Stuttering speech, headache. COMPARISON: 12/08/2016. TECHNIQUE: Multiaxial CT images were obtained from the foramen magnum to the vertex. Reformats: Coron al. IV contrast: None. In accordance with CT protocol optimization, one or more of the following dose reduction techniques w ere utilized for this exam: automated exposure control, adjustment of mA and/or KV based on patient s ize, or use of iterative reconstructive technique. FINDINGS: Parenchyma: Focal areas of bifrontal encephalomalacia unchanged since 12/08/2016. Possible tiny old r ight occipital infarct as well 3:14 No intraparenchymal hemorrhage. No evidence of mass, midline shif t, or CT findings of acute infarction. Loza-white differentiation is distinct. Extraaxial Spaces: Normal for age. No acute and subdural or epidural collections identified. Ventricles: Normal in size and position. Sinuses and Orbits: Imaged paranasal sinuses, orbits, and mastoids show no significant abnormality. Bones: No evidence of fracture or calvarial defect. Other: None. IMPRESSION: Stable head CT compared with 12/08/2016. No acute findings. [facility] Referring Provider Line: [phone] SITE ID: [id number]
[2017-11-16 15:48] LABS: BILIRUBIN,URINE NEGATIVE (NEGATIVE); GLUCOSE, URINE (UA) NEGATIVE (NEGATIVE); KETONES,URINE (UA) NEGATIVE (NEGATIVE); LEUKOCYTE ESTERASE, URINE TRACE (NEGATIVE); NITRITE,URINE POSITIVE (NEGATIVE); OCCULT BLOOD,URINE NEGATIVE (NEGATIVE); PH,URINE 5.5 PH (5.0-7.5); PROTEIN,URINE NEGATIVE (NEGATIVE); UROBILINOGEN,URINE 0.2 (NORMAL) E.U./dL (NORMAL)
[2017-11-16 15:50] LABS: CLARITY,URINE CLEAR (CLEAR)
[2017-11-16] MEDS ORDERED: cefTRIAXone 1 GM VIAL IVP STA (15:51)
[2017-11-16 15:57] LABS: BACTERIA,URINE Moderate /HPF (None Seen); RBC,URINE 0-5 /HPF (0-5); SQUAMOUS EPITHELIAL CELL,UR FEW Squamous (<= Few)
[2017-11-16 16:02] VITALS: BP 150/79
== END 2017-11-16 16:34 | disposition home or self-care (01) ==
LOC: EDBD → EDUNIT# → ED 12:24
DX: R51 Headache (principal); N30.00 Acute cystitis without hematuria; I10 Essential (primary) hypertension; I48.91 Unspecified atrial fibrillation; J44.9 Chronic obstructive pulmonary disease, unspecified; E11.9 Type 2 diabetes mellitus without complications; Z79.84 Long term (current) use of oral hypoglycemic drugs; Z86.73 Personal history of transient ischemic attack (TIA), and cerebral infarction without residual deficits; Z79.02 Long term (current) use of antithrombotics/antiplatelets
CPT/HCPCS: 36415; 51701; 70450; 80053; 81001; 83690; 85025; 87086; 87181; 93005; 96374; 96375; 99284; 99285; J2060; 81003

== ENCOUNTER 2017-11-19 11:40 | Outpatient (CLI) | payer MEDICARE, MEDICAID | END 2017-11-19 11:41 | disposition critical access hospital (66) | LOC: EMS 11:40 | PROVIDERS: ATTEND Surgery | DX: R47.9 Unspecified speech disturbances (principal); R53.1 Weakness | CPT/HCPCS: A0425; A0427 ==

== ENCOUNTER 2017-11-19 11:54 | Emergency (ER) | payer MEDICARE, MEDICAID ==
[2017-11-19] MEDS ORDERED: LORazepam 2 MG/ML VIAL IVP STA (12:29)
[2017-11-19] MEDS ORDERED: KETOROLAC 60 MG/2 ML VIAL IVP STA (12:29)
[2017-11-19 12:37] LABS: BASOPHILS # (AUTO) 0.1 10^3/uL (0.0-0.1); BASOPHILS % (AUTO) 0.7 %; EOSINOPHILS # (AUTO) 0.1 10^3/uL (0.0-0.7); EOSINOPHILS % (AUTO) 1.7 %; HGB - HEMOGLOBIN 12.9 g/dL (12.0-16.0); LYMPHOCYTES # (AUTO) 2.1 10^3/uL (1.5-3.5); LYMPHOCYTES % (AUTO) 24.1 %; MEAN CORPUSCULAR HEMOGLOBIN 27.4 pg (27.0-31.0); MEAN CORPUSCULAR HGB CONC 32.9 g/dL (32.0-36.0); MEAN CORPUSCULAR VOLUME 83.5 fL (81.0-99.0); MEAN PLATELET VOLUME 7.7 fL (7.9-10.8); MONOCYTES # (AUTO) 0.7 10^3/uL (0.0-1.0); MONOCYTES % (AUTO) 8.4 %; NEUTROPHILS # (AUTO) 5.6 10^3/uL (1.5-6.6); NEUTROPHILS % (AUTO) 65.1 %; PLT - PLATELET COUNT 341 10^3/uL (130-450); WHITE BLOOD COUNT 8.5 x10^3/uL (4.8-10.8)
[2017-11-19 12:49] LABS: ALBUMIN/GLOBULIN RATIO 0.9 (1.0-2.2); BILIRUBIN,TOTAL 0.3 mg/dL (0.2-1.0); CREATININE 1.1 mg/dL (0.4-1.0); TOTAL PROTEIN 8.4 g/dL (6.7-8.2)
[2017-11-19 15:39] VITALS: BP 153/86
[2017-11-19 15:41] LABS: BILIRUBIN,URINE NEGATIVE (NEGATIVE); GLUCOSE, URINE (UA) NEGATIVE (NEGATIVE); KETONES,URINE (UA) NEGATIVE (NEGATIVE); LEUKOCYTE ESTERASE, URINE NEGATIVE (NEGATIVE); NITRITE,URINE NEGATIVE (NEGATIVE); OCCULT BLOOD,URINE NEGATIVE (NEGATIVE); PH,URINE 5.5 PH (5.0-7.5); PROTEIN,URINE NEGATIVE (NEGATIVE); UROBILINOGEN,URINE 0.2 (NORMAL) E.U./dL (NORMAL)
[2017-11-19 15:42] LABS: CLARITY,URINE CLEAR (CLEAR)
--- NOTE | 2017-11-19 15:46 | ED Physician Documentation ---
History of Present Illness - Stated complaint Stated Complaint: Weakness - Chief complaint Chief Complaint: Neuro - History obtained from History obtained from: Patient, EMS - History of Present Illness Timing: Today Pain level max: 7 Pain level now: 7 Improved by: Normally improves with Toradol and Ativan Worsened by: Nothing - Additonal information Additional information: Patient is a 67-year-old female who presents to the emergency department with her usual migraine headache. This is accompanied by stuttering speech and generalized weakness. This is happened to her for several years. Normally resolved with Toradol and Ativan. No new neurological deficits. She is being treated for a UTI with Macrobid which she started 3 days ago. She has been taking her medication for this. She has had no fevers. No vomiting. Is now receiving Botox injections every 3 months for her headaches. No new focal neurological deficits today. Review of Systems Ten Systems: 10 systems reviewed and negative Constitutional: denies: Fever, Chills Ears: denies: Ear pain Nose: denies: Rhinorrhea / runny nose, Congestion Throat: denies: Sore throat Cardiac: denies: Chest pain / pressure Respiratory: denies: Cough GI: denies: Nausea, Vomiting, Diarrhea Skin: denies: Rash Musculoskeletal: denies: Neck pain, Back pain Neurologic: denies: Confused, Head injury, LOC PD PAST MEDICAL HISTORY - Past Medical History Past Medical History: Yes Cardiovascular: Hypertension, Atrial fibrillation Respiratory: COPD, Shortness of breath, CPAP use Neuro: CVA, TIA Endocrine/Autoimmune: Type 2 diabetes GI: Hiatal hernia, Cholelithiasis OPERATIONS ASST: None : Retention HEENT: Other Psych: Depression Musculoskeletal: None Derm: None - Past Surgical History Past Surgical History: Yes General: Cholecystectomy, Appendectomy, Bowel surgery, Hiatal hernia repair, Colonoscopy Ortho: Other /OPERATIONS ASST: section HEENT: Tonsil/Adenoidectomy - Present Medications Home Medications: Ambulatory Orders Medication Instructions Recorded Confirmed Fenofibrate [Lipofen] 54 mg PO HS 02/18/13 02/14/17 Calcium Carb/Vit D3/Minerals 1 each PO DAILY 12/26/13 02/14/17 [Calcium 1,200 mg Tablet Chew] Cholecalciferol (Vitamin D3) 2,000 unit PO DAILY 12/26/13 02/14/17 [Vitamin D] Clopidogrel [Plavix] 75 mg PO DAILY 01/06/14 02/14/17 Sertraline HCl [Zoloft] 100 mg PO QDBREAKFAST 12/03/14 02/14/17 Acetaminophen [Tylenol Extra 1,000 mg PO DAILY PRN 12/12/14 02/14/17 Strength] Vitamin B Complex 1,000 mg PO DAILY 01/04/15 02/14/17 Topiramate [Topiramate ER] 50 mg PO BID 07/27/15 02/14/17 Trazodone HCl 100 mg PO QPM 01/23/16 02/14/17 Albuterol Sulfate [Proventil Hfa 1 - 2 puffs IH Q4H PRN #1 02/22/16 02/14/17 Inhaler] hfa.aer.ad Bupropion HCl [Wellbutrin Sr] 300 mg PO DAILY 03/22/16 02/14/17 Gabapentin 600 mg PO TID 03/22/16 02/14/17 metFORMIN [Glucophage] 500 mg PO BID 03/22/16 02/14/17 Magnesium Hydroxide [Milk of 400 mg PO DAILY PRN #240 ml 07/29/16 02/14/17 Magnesia] HYDROcod/ACETAM 5/325 [Brush 5/325] 1 - 2 ea PO Q6H PRN #15 tablet 10/22/16 Amitriptyline [Elavil] 25 mg QPM 12/08/16 02/14/17 Fenofibrate 54 mg PO DAILY 02/14/17 02/14/17 Lidocaine Patch 5% [Lidoderm Patch] 1 each TOP DAILY PRN #10 patch 02/14/17 Hydrocodone/Acetaminophen [Vicodin 1 each PO Q6HR PRN #12 tablet 03/26/17 5-300 mg Tablet] Nitrofurantoin Monohyd/M-Cryst 100 mg PO BID #10 capsule 11/16/17 [Macrobid 100 mg Capsule] - Allergies Allergies/Adverse Reactions: Allergies Allergy/AdvReac Type Severity Reaction Status Date / Time No Known Drug Allergies Allergy Verified 12/08/16 16:52 - Social History Does the pt smoke?: No Smoking Status: Never smoker Does the pt drink ETOH?: No Does the pt have substance abuse?: No - Immunizations Immunizations are current?: Yes Immunizations: TDAP >10years/unknown - POLST Patient has POLST: Yes POLST Status: DNR PD ED PE NORMAL - Vitals Vital signs reviewed: Yes - General General: Alert and oriented X 3, No acute distress, Well developed/nourished - HEENT HEENT: PERRL, Moist mucous membranes - Neck Neck: Supple, no meningeal sign - Cardiac Cardiac: RRR, Strong equal pulses - Respiratory Respiratory: No respiratory distress, Clear bilaterally - Abdomen Abdomen: Soft, Non tender, Non distended - Back Back: No spinal TTP - Derm Derm: Warm and dry - Extremities Extremities: No calf tenderness / cord - Neuro Neuro: Alert and oriented X 3, crutching contractor 2-12 intact, No sensory deficit, Other ( Stuttering speech. Mild right-sided weakness, unchanged from baseline) - Psych Psych: Normal mood, Normal affect Results - Vitals Vitals: Vital Signs - 24 hr 11/19/17 11/19/17 11/19/17 11:55 12:44 13:19 Temperature 36.8 C Heart Rate 65 84 98 Respiratory 18 24 15 Rate Blood Pressure 136/73 H 136/59 H 172/79 H O2 Saturation 100 97 97 11/19/17 11/19/17 11/19/17 14:00 15:00 16:00 Temperature Heart Rate 97 91 82 Respiratory 15 18 18 Rate Blood Pressure 127/77 153/86 H O2 Saturation 95 97 100 Oxygen O2 Source [] Nasal cannula O2 Source [] Room air O2 Source Room air - EKG (time done) 1213 Rate: Rate (enter#) (90) Rhythm: NSR [place]: Normal Intervals: Normal [place] QRS: Normal Ischemia: Normal ST segments - Labs Labs: Laboratory Tests 11/19/17 11/19/17 11/19/17 12:00 12:00 15:33 WBC 8.5 RBC 4.70 Hgb 12.9 Hct 39.3 MCV 83.5 MCH 27.4 MCHC 32.9 RDW 17.0 H Plt Count 341 MPV 7.7 L Neut # 5.6 Lymph # 2.1 [place] # 0.7 Eos # 0.1 Baso # 0.1 Absolute Nucleated RBC 0.00 Nucleated RBC % 0.0 Sodium 137 Potassium 4.8 Chloride 103 Carbon Dioxide 24 Anion Gap 10.0 BUN 24 H Creatinine 1.1 H Estimated GFR (MDRD) 50 L Glucose 97 Calcium 10.0 Total Bilirubin 0.3 AST 17 ALT 13 Alkaline Phosphatase 82 Total Protein 8.4 H Albumin 4.0 Globulin 4.4 H Albumin/Globulin Ratio 0.9 L Lipase 45 Urine Color YELLOW Urine Clarity CLEAR Urine pH 5.5 Ur Specific [place] 1.020 Urine Protein NEGATIVE Urine Glucose (UA) NEGATIVE Urine Ketones NEGATIVE Urine Occult Blood NEGATIVE Urine Nitrite NEGATIVE Urine Bilirubin NEGATIVE Urine Urobilinogen 0.2 (NORMAL) Ur Leukocyte Esterase NEGATIVE Ur Microscopic Review NOT INDICATED Urine Culture Comments NOT INDICATED PD MEDICAL DECISION MAKING - ED course Complexity details: reviewed old records, reviewed results, re-evaluated patient , considered differential, d/w patient, d/w family ED course: Patient is a 67-year-old female presents to the emergency department with her usual complex migraine headache. She is well-appearing, nontoxic. Afebrile. Symptoms resolved with Toradol and Ativan. Speech returned to normal. She is at her normal neurological baseline. We will have her follow-up with her doctor for further evaluation and care. We will have her discuss with her neurologist by her headaches seem to be starting again. She may need increased frequency of Botox injections? Patient and family counseled regarding signs and symptoms for which I believe and urgent re-evaluation would be necessary. Patient with good understanding of and agreement to plan and is comfortable going home at this time This document was made in part using voice recognition software. While efforts are made to proofread this document, sound alike and grammatical errors may occur. Departure - Departure Disposition: 01 Home, Self Care Clinical Impression: Migraine Condition: Good Instructions: ED Headache Migraine Follow-Up: Jim Potter MD [Primary Care Provider] - Within 3 Days Reji Morocho MD [Physician No Access] - Within 1 week Comments: Call Dr. Morocho this week to inquire about the increasing frequency of your headaches, you may need a Botox injection sooner than planned. Return if you worsen. Please finish the antibiotics you are taking at home. Discharge Date/Time: 11/19/17 16:46
== END 2017-11-19 16:46 | disposition home or self-care (01) ==
LOC: EDUNIT# → ED 11:54
DX: G43.909 Migraine, unspecified, not intractable, without status migrainosus (principal); I10 Essential (primary) hypertension; I48.91 Unspecified atrial fibrillation; J44.9 Chronic obstructive pulmonary disease, unspecified; E11.9 Type 2 diabetes mellitus without complications; Z79.84 Long term (current) use of oral hypoglycemic drugs; Z86.73 Personal history of transient ischemic attack (TIA), and cerebral infarction without residual deficits
CPT/HCPCS: 36415; 80053; 81003; 83690; 85025; 93005; 96374; 96375; 99284; J2060; 81001; 87086

== ENCOUNTER 2017-12-14 09:19 | Outpatient (CLI) | payer MEDICARE, MEDICAID | END 2017-12-14 09:20 | disposition critical access hospital (66) | LOC: EMS 09:19 | PROVIDERS: ATTEND Surgery | DX: M54.5 Low back pain (principal); W18.39XA Other fall on same level, initial encounter; Y92.031 Bathroom in apartment as the place of occurrence of the external cause | CPT/HCPCS: A0425; A0429 ==

== ENCOUNTER 2017-12-14 09:39 | Emergency (ER) | payer MEDICARE, MEDICAID ==
--- NOTE | 2017-12-14 09:50 | ED Physician Documentation ---
PD HPI HEAD INJURY - Stated complaint Stated Complaint: GLF - History obtained from History obtained from: Patient, EMS - History of Present Illness Mechanism of head injury: Fell Where head injury occurred: Home Timing - onset: Today Location of injury: Left, Front Quality of pain: Pain Associated symptoms: No: LOC, AMS, Amnesia, Nausea / vomiting, Neck pain, Paresthesias, Seizures, Ear drainage, Nasal drainage Symptoms improve with: Rest Symptoms worsen with: Palpation, Movement Contributing factors: Anticoagulated Similar symptoms before: Diagnosis (concussion) Recently seen: Emergency Dept - Additional information Additional information: 67-year-old female with a history of CVA and complicated migraine has had a fall in her bathroom today when her right leg suddenly gave out. She has had some pain in her back on the right side for about 3 days. When she fell she did strike her head she did not have loss of consciousness she puts her [employer] button and her daughter showed up about 5 minutes after she fell. 911 was called they were able to assist the patient up off the ground and have brought her in for evaluation. She does have pain to her head she denies any neck pain she denies any numbness or tingling.She has had her back L4-5 fused back in July 2017 Review of Systems Constitutional: denies: Fever Eyes: denies: Decreased vision Ears: denies: Ear pain Nose: denies: Rhinorrhea / runny nose, Congestion Throat: denies: Sore throat Cardiac: denies: Chest pain / pressure, Palpitations Respiratory: denies: Dyspnea, Cough GI: denies: Abdominal Pain, Nausea, Vomiting : denies: Dysuria, Frequency Musculoskeletal: reports: Back pain. 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 HEENT: Other Psych: Depression Musculoskeletal: None Derm: None - Past Surgical History Past Surgical History: Yes General: Cholecystectomy, Appendectomy, Bowel surgery, Hiatal hernia repair, Colonoscopy Ortho: Other /HEAD UP OPERATOR HELPER: section HEENT: Tonsil/Adenoidectomy - Present Medications Home Medications: Ambulatory Orders Medication Instructions Recorded Confirmed Fenofibrate [Lipofen] 54 mg PO HS 02/18/13 02/14/17 Calcium Carb/Vit D3/Minerals 1 each PO DAILY 12/26/13 02/14/17 [Calcium 1,200 mg Tablet Chew] Cholecalciferol (Vitamin D3) 2,000 unit PO DAILY 12/26/13 02/14/17 [Vitamin D] Clopidogrel [Plavix] 75 mg PO DAILY 01/06/14 02/14/17 Sertraline HCl [Zoloft] 100 mg PO QDBREAKFAST 12/03/14 02/14/17 Acetaminophen [Tylenol Extra 1,000 mg PO DAILY PRN 12/12/14 02/14/17 Strength] Vitamin B Complex 1,000 mg PO DAILY 01/04/15 02/14/17 Topiramate [Topiramate ER] 50 mg PO BID 07/27/15 02/14/17 Trazodone HCl 100 mg PO QPM 01/23/16 02/14/17 Albuterol Sulfate [Proventil Hfa 1 - 2 puffs IH Q4H PRN #1 02/22/16 02/14/17 Inhaler] hfa.aer.ad Bupropion HCl [Wellbutrin Sr] 300 mg PO DAILY 03/22/16 02/14/17 Gabapentin 600 mg PO TID 03/22/16 02/14/17 metFORMIN [Glucophage] 500 mg PO BID 03/22/16 02/14/17 Magnesium Hydroxide [Milk of 400 mg PO DAILY PRN #240 ml 07/29/16 02/14/17 Magnesia] HYDROcod/ACETAM 5/325 [[place] 5/325] 1 - 2 ea PO Q6H PRN #15 tablet 10/22/16 Amitriptyline [Elavil] 25 mg QPM 12/08/16 02/14/17 Fenofibrate 54 mg PO DAILY 02/14/17 02/14/17 Lidocaine Patch 5% [Lidoderm Patch] 1 each TOP DAILY PRN #10 patch 02/14/17 Hydrocodone/Acetaminophen [Vicodin 1 each PO Q6HR PRN #12 tablet 03/26/17 5-300 mg Tablet] Nitrofurantoin Monohyd/M-Cryst 100 mg PO BID #10 capsule 11/16/17 [Macrobid 100 mg Capsule] - Allergies Allergies/Adverse Reactions: Allergies Allergy/AdvReac Type Severity Reaction Status Date / Time No Known Drug Allergies Allergy Verified 12/08/16 16:52 - Social History Does the pt smoke?: No Smoking Status: Never smoker Does the pt drink ETOH?: No Does the pt have substance abuse?: No - Immunizations Immunizations are current?: Yes Immunizations: TDAP >10years/unknown - POLST Patient has POLST: Yes POLST Status: DNR PD ED PE NORMAL - Vitals Vital signs reviewed: Yes (hypertensive) - General General: Alert and oriented X 3, No acute distress, Well developed/nourished - HEENT HEENT: PERRL, EOMI, Other (There is a bruise to the left forehead without crepitance. ) - Neck Neck: Supple, no meningeal sign, No bony TTP - Cardiac Cardiac: RRR, No murmur - Respiratory Respiratory: No respiratory distress, Clear bilaterally - Abdomen Abdomen: Soft, Other (tenderness to bimanual palpation of the left kidney ) - Back Back: No spinal TTP, Other (right CVA tenderness) - Derm Derm: Normal color, Warm and dry, No rash - Extremities Extremities: No deformity, No edema - Neuro Neuro: Alert and oriented X 3, feather renovator 2-12 intact, No motor deficit, No sensory deficit, Normal speech Eye Opening: Spontaneous Motor: Obeys Commands Verbal: Oriented GCS Score: 15 - Psych Psych: Normal mood, Normal affect Results - Vitals Vitals: Vital Signs - 24 hr 12/14/17 12/14/17 12/14/17 09:41 11:40 11:51 Temperature 36.5 C Heart Rate 98 90 Respiratory 18 16 Rate Blood Pressure 140/69 H 142/84 H O2 Saturation 98 85 L 94 Oxygen O2 Source [] Nasal cannula O2 Source [] Room air O2 Source Nasal cannula - Labs Labs: Laboratory Tests 12/14/17 12/14/17 12/14/17 10:00 10:00 10:00 WBC 5.5 RBC 4.45 Hgb 12.2 Hct 37.6 MCV 84.4 MCH 27.4 MCHC 32.4 RDW 16.7 H Plt Count 310 MPV 7.3 L Neut # 3.7 Lymph # 1.1 L [place] # 0.5 Eos # 0.1 Baso # 0.0 Absolute Nucleated RBC 0.00 Nucleated RBC % 0.0 Sodium 137 Potassium 4.7 Chloride 104 Carbon Dioxide 24 Anion Gap 9.0 BUN 37 H Creatinine 1.5 H Estimated GFR (MDRD) 35 L Glucose 115 H Calcium 9.5 Total Bilirubin 0.5 AST 20 ALT 12 Alkaline Phosphatase 72 Troponin I < 0.04 Total Protein 8.3 H Albumin 4.0 Globulin 4.3 H Albumin/Globulin Ratio 0.9 L Lipase 40 Urine Color Urine Clarity Urine pH Ur Specific [place] Urine Protein Urine Glucose (UA) Urine Ketones Urine Occult Blood Urine Nitrite Urine Bilirubin Urine Urobilinogen Ur Leukocyte Esterase Urine RBC Urine WBC Ur Squamous Epith Cells Urine Bacteria Urine Casts Ur Microscopic Review Urine Culture Comments 12/14/17 10:15 WBC RBC Hgb Hct MCV MCH MCHC RDW Plt Count MPV Neut # Lymph # [place] # Eos # Baso # Absolute Nucleated RBC Nucleated RBC % Sodium Potassium Chloride Carbon Dioxide Anion Gap BUN Creatinine Estimated GFR (MDRD) Glucose Calcium Total Bilirubin AST ALT Alkaline Phosphatase Troponin I Total Protein Albumin Globulin Albumin/Globulin Ratio Lipase Urine Color YELLOW Urine Clarity CLEAR Urine pH 5.5 Ur Specific [place] 1.020 Urine Protein NEGATIVE Urine Glucose (UA) NEGATIVE Urine Ketones NEGATIVE Urine Occult Blood NEGATIVE Urine Nitrite NEGATIVE Urine Bilirubin NEGATIVE Urine Urobilinogen 0.2 (NORMAL) Ur Leukocyte Esterase TRACE H Urine RBC 0-5 Urine WBC 0-3 Ur Squamous Epith Cells RARE Squamous Urine Bacteria Few Urine Casts 0-2 WBC Casts Ur Microscopic Review INDICATED Urine Culture Comments INDICATED - Rads (name of study) CT head without Radiology: Prelim report reviewed (Impression: Generalized age-related cortical atrophic changes and old infarcts without evidence of acute intracranial abnormality.), EMP read indepedently, See rad report PD MEDICAL DECISION MAKING - ED course Complexity details: reviewed old records, reviewed results, re-evaluated patient , considered differential, d/w patient, d/w family ED course: 67-year-old female with a prior history of lumbar fusion has fallen in her bathroom and has injured her head. She is found to be dehydrated and is given IV hydration. CT scan of the head is without evidence of acute change and the patient's back pain is treated with intravenous narcotic. Departure - Departure Disposition: 01 Home, Self Care Clinical Impression: Dehydration Back pain Qualifiers: Back pain location: low back pain Chronicity: chronic Back pain laterality: bilateral Sciatica presence: with sciatica Sciatica laterality: sciatica laterality unspecified Qualified Code(s): M54.40 - Lumbago with sciatica, unspecified side; G89.29 - Other chronic pain; G89.29 - Other chronic pain Concussion Qualifiers: Encounter type: initial encounter Loss of consciousness presence/duration: without LOC Qualified Code(s): S06.0X0A - Concussion without loss of consciousness, initial encounter Instructions: ED Dehydration, ED Spasm Back No Trauma, ED Concussion Follow-Up: Jim Potter MD [Primary Care Provider] -
[2017-12-14 10:06] LABS: BASOPHILS % (AUTO) 0.8 %; EOSINOPHILS # (AUTO) 0.1 10^3/uL (0.0-0.7); EOSINOPHILS % (AUTO) 2.4 %; HGB - HEMOGLOBIN 12.2 g/dL (12.0-16.0); LYMPHOCYTES # (AUTO) 1.1 10^3/uL (1.5-3.5); LYMPHOCYTES % (AUTO) 19.6 %; MEAN CORPUSCULAR HEMOGLOBIN 27.4 pg (27.0-31.0); MEAN CORPUSCULAR HGB CONC 32.4 g/dL (32.0-36.0); MEAN CORPUSCULAR VOLUME 84.4 fL (81.0-99.0); MEAN PLATELET VOLUME 7.3 fL (7.9-10.8); MONOCYTES # (AUTO) 0.5 10^3/uL (0.0-1.0); MONOCYTES % (AUTO) 9.4 %; NEUTROPHILS # (AUTO) 3.7 10^3/uL (1.5-6.6); NEUTROPHILS % (AUTO) 67.8 %; PLT - PLATELET COUNT 310 10^3/uL (130-450); RED BLOOD COUNT 4.45 10^6/uL (4.20-5.40); RED CELL DISTRIBUTION WIDTH 16.7 % (12.0-15.0); WHITE BLOOD COUNT 5.5 x10^3/uL (4.8-10.8)
--- NOTE | 2017-12-14 10:11 | CT Report ---
EXAM: CT HEAD EXAM DATE: 12/14/2017 10:01 AM. CLINICAL HISTORY: Fall head injury . COMPARISON: 11/16/2017. TECHNIQUE: Multiaxial CT images were obtained from the foramen magnum to the vertex. Reformats: Coron al. IV contrast: None. In accordance with CT protocol optimization, one or more of the following dose reduction techniques w ere utilized for this exam: automated exposure control, adjustment of mA and/or KV based on patient s ize, or use of iterative reconstructive technique. FINDINGS: Parenchyma: No intraparenchymal hemorrhage. No evidence of mass, midline shift, or CT findings of acu te infarction. Loza-white differentiation is distinct. Diffuse chronic microangiopathic white matter changes are evident. Old bilateral frontal lobe infarcts and probable small right occipital lobe infa rct. Extraaxial Spaces: Normal for age. No subdural or epidural collections identified. Ventricles: The ventricles and cortical sulci are enlarged, consistent with age-related tissue loss. Sinuses and orbits: Imaged paranasal sinuses, orbits, and mastoids show no significant abnormality. Bones: No evidence of fracture or calvarial defect. Other: None. IMPRESSION: Generalized age-related cortical atrophic changes and old infarcts without evidence of ac christine intracranial abnormality. [facility] Referring Provider Line: [phone] SITE ID: [id number]
[2017-12-14 10:18] LABS: ALBUMIN/GLOBULIN RATIO 0.9 (1.0-2.2); BILIRUBIN,TOTAL 0.5 mg/dL (0.2-1.0); CALCIUM 9.5 mg/dL (8.5-10.3); CREATININE 1.5 mg/dL (0.4-1.0); TOTAL PROTEIN 8.3 g/dL (6.7-8.2)
[2017-12-14 10:37] LABS: BILIRUBIN,URINE NEGATIVE (NEGATIVE); CLARITY,URINE CLEAR (CLEAR); GLUCOSE, URINE (UA) NEGATIVE (NEGATIVE); KETONES,URINE (UA) NEGATIVE (NEGATIVE); LEUKOCYTE ESTERASE, URINE TRACE (NEGATIVE); NITRITE,URINE NEGATIVE (NEGATIVE); OCCULT BLOOD,URINE NEGATIVE (NEGATIVE); PH,URINE 5.5 PH (5.0-7.5); PROTEIN,URINE NEGATIVE (NEGATIVE); UROBILINOGEN,URINE 0.2 (NORMAL) E.U./dL (NORMAL)
[2017-12-14 10:52] LABS: RBC,URINE 0-5 /HPF (0-5); SQUAMOUS EPITHELIAL CELL,UR RARE Squamous (<= Few)
[2017-12-14 10:53] LABS: BACTERIA,URINE Few /HPF (None Seen); CASTS, URINE 0-2 WBC Casts /LPF
[2017-12-14] MEDS ORDERED: SODIUM CHLORIDE 0.9% 1,000 ML IV ONE (11:32)
[2017-12-14] MEDS ORDERED: ONDANSETRON 4 MG/2 ML VIAL IVP STA (11:32)
[2017-12-14] MEDS ORDERED: HYDROmorphone 1 MG/ML SYRINGE IVP STA (11:32)
[2017-12-14] MEDS ORDERED: DEXAMETHASONE 10 MG/ML VIAL IVP STA (11:33)
[2017-12-14 13:16] VITALS: BP 125/82
== END 2017-12-14 13:29 | disposition home or self-care (01) ==
LOC: EDUNIT# → ED 09:39
DX: E86.0 Dehydration (principal); M54.40 Lumbago with sciatica, unspecified side; G89.29 Other chronic pain; S06.0X0A Concussion without loss of consciousness, initial encounter; S00.83XA Contusion of other part of head, initial encounter; W18.39XA Other fall on same level, initial encounter; Y92.002 Bathroom of unspecified non-institutional (private) residence as the place of occurrence of the external cause; I10 Essential (primary) hypertension; E11.9 Type 2 diabetes mellitus without complications; Z98.1 Arthrodesis status; Z79.84 Long term (current) use of oral hypoglycemic drugs; Z79.891 Long term (current) use of opiate analgesic; Z79.02 Long term (current) use of antithrombotics/antiplatelets
CPT/HCPCS: 36415; 70450; 80053; 81001; 83690; 84484; 85025; 87086; 96361; 96374; 96375; 99284; J1170; 81003

== ENCOUNTER 2018-01-12 09:43 | Outpatient (CLI) | payer MEDICARE, MEDICAID ==
[2018-01-12 13:26] LABS: CALCIUM 9.9 mg/dL (8.5-10.3)
[2018-01-12 13:28] LABS: BASOPHILS % (AUTO) 0.5 %; EOSINOPHILS # (AUTO) 0.1 10^3/uL (0.0-0.7); EOSINOPHILS % (AUTO) 1.9 %; HGB - HEMOGLOBIN 12.2 g/dL (12.0-16.0); LYMPHOCYTES # (AUTO) 1.3 10^3/uL (1.5-3.5); LYMPHOCYTES % (AUTO) 19.3 %; MEAN CORPUSCULAR HEMOGLOBIN 27.9 pg (27.0-31.0); MEAN CORPUSCULAR HGB CONC 32.9 g/dL (32.0-36.0); MEAN CORPUSCULAR VOLUME 84.9 fL (81.0-99.0); MEAN PLATELET VOLUME 7.9 fL (7.9-10.8); MONOCYTES # (AUTO) 0.6 10^3/uL (0.0-1.0); MONOCYTES % (AUTO) 8.2 %; NEUTROPHILS # (AUTO) 4.9 10^3/uL (1.5-6.6); NEUTROPHILS % (AUTO) 70.1 %; PLT - PLATELET COUNT 330 10^3/uL (130-450); RED BLOOD COUNT 4.38 10^6/uL (4.20-5.40); RED CELL DISTRIBUTION WIDTH 17.6 % (12.0-15.0)
[2018-01-12 13:40] LABS: HB2 TOTAL 13.1 g/dL; HEMOGLOBIN A1C 0.59 g/dL; HEMOGLOBIN A1C % 6.3 % (4.6-6.2)
== END 2018-01-12 09:44 | disposition home or self-care (01) ==
LOC: LAB.N 09:43
PROVIDERS: ATTEND Family Medicine
DX: D50.9 Iron deficiency anemia, unspecified (principal); E11.9 Type 2 diabetes mellitus without complications; I10 Essential (primary) hypertension
CPT/HCPCS: 36415; 80048; 82728; 83036; 85025

== ENCOUNTER 2018-01-12 14:22 | Outpatient (CLI) | payer MEDICARE, MEDICAID ==
--- NOTE | 2018-01-12 15:23 | XRAY Report ---
TWO VIEW LEFT LOWER LE01/12/2018 CLINICAL INDICATION: Pain. FINDINGS: Frontal and lateral views of the left lower leg demonstrate soft tissue swelling. There is no evidence of acute fracture. No radiopaque foreign body is seen in the soft tissues. IMPRESSION: SOFT TISSUE SWELLING, BUT NO EVIDENCE OF ACUTE FRACTURE. TD: 01/12/2018 15:22
== END 2018-01-12 14:23 | disposition home or self-care (01) ==
LOC: DI.N 14:22
PROVIDERS: ATTEND Physician Assistant Medical
DX: M79.605 Pain in left leg (principal); D50.9 Iron deficiency anemia, unspecified; E11.9 Type 2 diabetes mellitus without complications; I10 Essential (primary) hypertension; R22.42 Localized swelling, mass and lump, left lower limb
CPT/HCPCS: 36415; 80048; 82728; 83036; 85025

== ENCOUNTER 2018-01-14 15:45 | Emergency (ER) | payer MEDICARE, MEDICAID ==
[2018-01-14 16:00] VITALS: BP 157/67
--- NOTE | 2018-01-14 16:19 | ED Physician Documentation ---
PD HPI LOWER EXT INJURY - Stated complaint Stated Complaint: SWOLLEN LEFT LEG - Chief complaint Chief Complaint: Wound - History obtained from History obtained from: Patient - History of Present Illness PD HPI LOW EXT INJURY LOCATION: Left, Lower leg Type of injury: Fall Where injury occurred: Home Timing - onset: How many days ago (10) Timing - duration: Days (10) Timing - details: Gradual onset Pain level max: 8 Pain level now: 8 Improved by: Rest Worsened by: Moving, Palpating Associated symptoms: Swelling, Discolored (Erythema). No: Weakness, Numbness, Tingling Similar symptoms before: Diagnosis (Cellulitis) Recently seen: Clinic - Additional information Additional information: Patient is a 67-year-old female who presents to the emergency department after a trip and fall approximately 10 days ago, sustaining an abrasion to the left lower extremity. It has since become infected and is being treated with Keflex for cellulitis. She states that the redness is worsening so came for secondary evaluation. No fevers. No calf pain. Normal xray 3 days ago. 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 : Retention HEENT: Other Psych: Depression Musculoskeletal: None Derm: None - Past Surgical History Past Surgical History: Yes General: Cholecystectomy, Appendectomy, Bowel surgery, Hiatal hernia repair, Colonoscopy Ortho: Other /DRY KILN LOADER: section HEENT: Tonsil/Adenoidectomy - Present Medications Home Medications: Ambulatory Orders Medication Instructions Recorded Confirmed Fenofibrate [Lipofen] 54 mg PO HS 02/18/13 01/14/18 Calcium Carb/Vit D3/Minerals 1 each PO DAILY 12/26/13 01/14/18 [Calcium 1,200 mg Tablet Chew] Cholecalciferol (Vitamin D3) 2,000 unit PO DAILY 12/26/13 01/14/18 [Vitamin D] Clopidogrel [Plavix] 75 mg PO DAILY 01/06/14 01/14/18 Sertraline HCl [Zoloft] 100 mg PO QDBREAKFAST 12/03/14 01/14/18 Acetaminophen [Tylenol Extra 1,000 mg PO DAILY PRN 12/12/14 01/14/18 Strength] Vitamin B Complex 1,000 mg PO DAILY 01/04/15 01/14/18 Topiramate [Topiramate ER] 50 mg PO BID 07/27/15 01/14/18 Trazodone HCl 100 mg PO QPM 01/23/16 01/14/18 Albuterol Sulfate [Proventil Hfa 1 - 2 puffs IH Q4H PRN #1 02/22/16 01/14/18 Inhaler] hfa.aer.ad Bupropion HCl [Wellbutrin Sr] 300 mg PO DAILY 03/22/16 01/14/18 Gabapentin 600 mg PO TID 03/22/16 01/14/18 metFORMIN [Glucophage] 500 mg PO BID 03/22/16 01/14/18 Magnesium Hydroxide [Milk of 400 mg PO DAILY PRN #240 ml 07/29/16 01/14/18 Magnesia] HYDROcod/ACETAM 5/325 [[place] 5/325] 1 - 2 ea PO Q6H PRN #15 tablet 10/22/16 Amitriptyline [Elavil] 25 mg QPM 12/08/16 01/14/18 Fenofibrate 54 mg PO DAILY 02/14/17 01/14/18 Lidocaine Patch 5% [Lidoderm Patch] 1 each TOP DAILY PRN #10 patch 02/14/17 Hydrocodone/Acetaminophen [Vicodin 1 each PO Q6HR PRN #12 tablet 03/26/17 5-300 mg Tablet] Nitrofurantoin Monohyd/M-Cryst 100 mg PO BID #10 capsule 11/16/17 01/14/18 [Macrobid 100 mg Capsule] Cephalexin [Keflex] 500 mg PO QID 01/14/18 01/14/18 Sulfamethox/Trimeth 800/160 1 each PO BID #14 tablet 01/14/18 [Bactrim Ds 800/160] - Allergies Allergies/Adverse Reactions: Allergies Allergy/AdvReac Type Severity Reaction Status Date / Time No Known Drug Allergies Allergy Verified 12/08/16 16:52 - Social History Does the pt smoke?: No Smoking Status: Never smoker Does the pt drink ETOH?: No Does the pt have substance abuse?: No - Immunizations Immunizations are current?: Yes Immunizations: TDAP >10years/unknown - POLST Patient has POLST: Yes POLST Status: DNR PD ED PE NORMAL - Vitals Vital signs reviewed: Yes - General General: Alert and oriented X 3, No acute distress, Well developed/nourished - HEENT HEENT: PERRL, Moist mucous membranes - Neck Neck: Supple, no meningeal sign - Cardiac Cardiac: RRR, Strong equal pulses - Respiratory Respiratory: No respiratory distress, Clear bilaterally - Abdomen Abdomen: Soft, Non tender - Derm Derm: Warm and dry - Extremities Extremities: No deformity, Other (swelling, erythema (8x8cm) to anterior L tibial area, no calf tenderness. no cord. No abscess. ) - Neuro Neuro: Alert and oriented X 3 - Psych Psych: Normal mood, Normal affect Results - Vitals Vitals: Vital Signs - 24 hr 01/14/18 15:52 Temperature 36.8 C Heart Rate 95 Respiratory 18 Rate Blood Pressure 157/67 H O2 Saturation 98 Oxygen O2 Source [With Activity] Nasal cannula O2 Source [Without Activity] Room air O2 Source Room air PD MEDICAL DECISION MAKING - ED course Complexity details: reviewed results, re-evaluated patient, considered differential, d/w patient ED course: Patient is a 67-year-old female presents to the emergency department with left lower extremity cellulitis. She is currently on Keflex, given a dose of Rocephin here and will add Bactrim for home. Cellulitic edges were marked. We will have her follow-up closely with her PCP for further care. She is well- appearing, nontoxic. No evidence of abscess, sepsis. Patient counseled regarding signs and symptoms for which I believe and urgent re-evaluation would be necessary. Patient with good understanding of and agreement to plan and is comfortable going home at this time This document was made in part using voice recognition software. While efforts are made to proofread this document, sound alike and grammatical errors may occur. Departure - Departure Disposition: 01 Home, Self Care Clinical Impression: Cellulitis Qualifiers: Site of cellulitis: extremity Site of cellulitis of extremity: lower extremity Laterality: left Qualified Code(s): L03.116 - Cellulitis of left lower limb Condition: Good Instructions: ED Infec Skin Cellulitis Follow-Up: Jim Potter MD [Primary Care Provider] - Within 1 week (for recheck) Prescriptions: Sulfamethox/Trimeth 800/160 [Bactrim Ds 800/160] 1 each PO BID #14 tablet Comments: Return if you worsen. Take all antibiotics until gone. Continue the keflex with the bactrim. Discharge Date/Time: 01/14/18 17:00
[2018-01-14] MEDS ORDERED: oxyCODONE 5 MG TABLET PO STA (16:35)
[2018-01-14] MEDS ORDERED: LIDOCAINE 1% 2 ML VIAL SUBQ ONE (16:36)
[2018-01-14] MEDS ORDERED: cefTRIAXone 1 GM VIAL IM STA (16:36)
[2018-01-14] MEDS ORDERED: SULFAMETH/TRIMETH DS 800/160 MG TABLET PO STA (16:36)
== END 2018-01-14 17:00 | disposition home or self-care (01) ==
LOC: ED 15:45
DX: S80.812A Abrasion, left lower leg, initial encounter (principal); L03.116 Cellulitis of left lower limb; W01.0XXA Fall on same level from slipping, tripping and stumbling without subsequent striking against object, initial encounter; Y92.009 Unspecified place in unspecified non-institutional (private) residence as the place of occurrence of the external cause; I10 Essential (primary) hypertension; I48.91 Unspecified atrial fibrillation; J44.9 Chronic obstructive pulmonary disease, unspecified; Z86.73 Personal history of transient ischemic attack (TIA), and cerebral infarction without residual deficits; E11.9 Type 2 diabetes mellitus without complications; Z79.84 Long term (current) use of oral hypoglycemic drugs; Z79.02 Long term (current) use of antithrombotics/antiplatelets
CPT/HCPCS: 96372; 99283; A9270

== ENCOUNTER 2018-01-24 05:04 | Outpatient (CLI) | payer MEDICARE, MEDICAID | END 2018-01-24 05:05 | disposition critical access hospital (66) | LOC: EMS 05:04 | PROVIDERS: ATTEND Surgery | DX: M79.605 Pain in left leg (principal) | CPT/HCPCS: A0425; A0429 ==

== ENCOUNTER 2018-01-24 05:24 | Emergency (ER) | payer MEDICARE, MEDICAID ==
--- NOTE | 2018-01-24 05:42 | ED Physician Documentation ---
PD HPI SKIN - Stated complaint Stated Complaint: ANKLE/FOOT PAIN - Chief complaint Chief Complaint: Wound - History obtained from History obtained from: Patient, EMS - History of Present Illness Timing - onset: How many weeks ago (2) Timing - details: Gradual onset, Still present Location: LLE Quality / character: Painful Similar symptoms before: Work up / diagnostics, Treatment - Additional information Additional information: Patient is a 67 year old female with a history of diabetes, tia, cva who is presenting to the emergency department for worsening tenderness and swelling of her left lower extremity. patient had fallen and had an abrasion. patient was started on keflex and bactrim was added. patient's symptoms still had not resolved so she called ems to bring her in. Review of Systems Constitutional: reports: Fever. 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 : Retention HEENT: Other Psych: Depression Musculoskeletal: None Derm: None - Past Surgical History Past Surgical History: Yes General: Cholecystectomy, Appendectomy, Bowel surgery, Hiatal hernia repair, Colonoscopy Ortho: Other /E COMMERCE MANAGER: section HEENT: Tonsil/Adenoidectomy - Present Medications Home Medications: Ambulatory Orders Medication Instructions Recorded Confirmed Fenofibrate [Lipofen] 54 mg PO HS 02/18/13 01/14/18 Calcium Carb/Vit D3/Minerals 1 each PO DAILY 12/26/13 01/14/18 [Calcium 1,200 mg Tablet Chew] Cholecalciferol (Vitamin D3) 2,000 unit PO DAILY 12/26/13 01/14/18 [Vitamin D] Clopidogrel [Plavix] 75 mg PO DAILY 01/06/14 01/14/18 Sertraline HCl [Zoloft] 100 mg PO QDBREAKFAST 12/03/14 01/14/18 Acetaminophen [Tylenol Extra 1,000 mg PO DAILY PRN 12/12/14 01/14/18 Strength] Vitamin B Complex 1,000 mg PO DAILY 01/04/15 01/14/18 Topiramate [Topiramate ER] 50 mg PO BID 07/27/15 01/14/18 Trazodone HCl 100 mg PO QPM 01/23/16 01/14/18 Albuterol Sulfate [Proventil Hfa 1 - 2 puffs IH Q4H PRN #1 02/22/16 01/14/18 Inhaler] hfa.aer.ad Bupropion HCl [Wellbutrin Sr] 300 mg PO DAILY 03/22/16 01/14/18 Gabapentin 600 mg PO TID 03/22/16 01/14/18 metFORMIN [Glucophage] 500 mg PO BID 03/22/16 01/14/18 Magnesium Hydroxide [Milk of 400 mg PO DAILY PRN #240 ml 07/29/16 01/14/18 Magnesia] HYDROcod/ACETAM 5/325 [[place] 5/325] 1 - 2 ea PO Q6H PRN #15 tablet 10/22/16 Amitriptyline [Elavil] 25 mg QPM 12/08/16 01/14/18 Fenofibrate 54 mg PO DAILY 02/14/17 01/14/18 Lidocaine Patch 5% [Lidoderm Patch] 1 each TOP DAILY PRN #10 patch 02/14/17 Hydrocodone/Acetaminophen [Vicodin 1 each PO Q6HR PRN #12 tablet 03/26/17 5-300 mg Tablet] Nitrofurantoin Monohyd/M-Cryst 100 mg PO BID #10 capsule 11/16/17 01/14/18 [Macrobid 100 mg Capsule] Cephalexin [Keflex] 500 mg PO QID 01/14/18 01/14/18 Sulfamethox/Trimeth 800/160 1 each PO BID #14 tablet 01/14/18 [Bactrim Ds 800/160] Clindamycin HCl [Clindamycin 300MG 300 mg PO Q6H 7 Days capsule 01/24/18 CAP] - Allergies Allergies/Adverse Reactions: Allergies Allergy/AdvReac Type Severity Reaction Status Date / Time No Known Drug Allergies Allergy Verified 01/24/18 05:36 - Social History Does the pt smoke?: No Smoking Status: Never smoker Does the pt drink ETOH?: No Does the pt have substance abuse?: No - Immunizations Immunizations are current?: Yes Immunizations: TDAP >10years/unknown - POLST Patient has POLST: Yes POLST Status: DNR PD ED PE NORMAL - Vitals Vital signs reviewed: Yes - General General: Alert and oriented X 3, No acute distress - HEENT HEENT: Atraumatic - Cardiac Cardiac: RRR, No murmur - Abdomen Abdomen: Soft, Non distended - Neuro Neuro: Alert and oriented X 3 PD ED PE EXPANDED - Respiratory Respiratory: Wheezing (mild bilateral wheezing) - Extremities Extremities: Tenderness, Left leg ALPA LE visual: 1 - tenderness (cellulitic rash) 2 - rash Results - Vitals Vitals: Vital Signs - 24 hr 01/24/18 05:28 Temperature 36.7 C Heart Rate 107 H Respiratory 18 Rate Blood Pressure 183/93 H O2 Saturation 98 Oxygen O2 Source [With Activity] Nasal cannula O2 Source [Without Activity] Room air O2 Source Room air - Labs Labs: Laboratory Tests 01/24/18 01/24/18 01/24/18 05:39 05:39 05:39 WBC 5.4 RBC 4.13 L Hgb 11.4 L Hct 35.2 L MCV 85.2 MCH 27.5 MCHC 32.3 RDW 17.2 H Plt Count 276 MPV 7.4 L Neut # 3.6 Lymph # 1.0 L [place] # 0.7 Eos # 0.1 Baso # 0.0 Absolute Nucleated RBC 0.00 Nucleated RBC % 0.0 ESR Sodium 133 L Potassium 4.0 Chloride 98 L Carbon Dioxide 27 Anion Gap 8.0 BUN 27 H Creatinine 1.1 H Estimated GFR (MDRD) 50 L Glucose 130 H Lactic Acid 1.2 Calcium 9.3 Total Bilirubin 0.2 AST 20 ALT 16 Alkaline Phosphatase 67 C-Reactive Protein 1.3 H Total Protein 7.8 Albumin 3.5 Globulin 4.3 H Albumin/Globulin Ratio 0.8 L Lipase 41 01/24/18 05:39 WBC RBC Hgb Hct MCV MCH MCHC RDW Plt Count MPV Neut # Lymph # [place] # Eos # Baso # Absolute Nucleated RBC Nucleated RBC % ESR 10 Sodium Potassium Chloride Carbon Dioxide Anion Gap BUN Creatinine Estimated GFR (MDRD) Glucose Lactic Acid Calcium Total Bilirubin AST ALT Alkaline Phosphatase C-Reactive Protein Total Protein Albumin Globulin Albumin/Globulin Ratio Lipase PD MEDICAL DECISION MAKING - ED course Complexity details: reviewed old records, reviewed results, re-evaluated patient , considered differential, d/w patient ED course: Patient was seen and examined at bedside. IV access was gained and labs were drawn. Patient was well appearing and in no acute distress. patient was afebrile, and had no other signs of sepsis. Patient's labs were within normal limits and she was non-toxic. Patient had failed outpatient therapy but was wanting to try another trial with a different antibiotic. Patient was treated with clindamycin IV. Patient was able to tolerate PO. Patient required no further in patient work up at this time. patient was given detailed return and follow up instructions and was stable for discharge with outpatient follow up. Departure - Departure Disposition: 01 Home, Self Care Clinical Impression: Cellulitis Condition: Good Instructions: ED Infec Skin Cellulitis Follow-Up: Jim Potter MD [Primary Care Provider] - Prescriptions: Clindamycin HCl [Clindamycin 300MG CAP] 300 mg PO Q6H 7 Days capsule Comments: Your symptoms today are being caused by cellulitis. You have been started on antibiotics and will need to take them every 6 hours. If your symptoms don't improve in the next 48 hours you will need to return to the emergency for re- evaluation and care.
[2018-01-24 05:50] LABS: BASOPHILS % (AUTO) 0.7 %; EOSINOPHILS # (AUTO) 0.1 10^3/uL (0.0-0.7); EOSINOPHILS % (AUTO) 2.6 %; HGB - HEMOGLOBIN 11.4 g/dL (12.0-16.0); LYMPHOCYTES % (AUTO) 17.6 %; MEAN CORPUSCULAR HEMOGLOBIN 27.5 pg (27.0-31.0); MEAN CORPUSCULAR HGB CONC 32.3 g/dL (32.0-36.0); MEAN CORPUSCULAR VOLUME 85.2 fL (81.0-99.0); MEAN PLATELET VOLUME 7.4 fL (7.9-10.8); MONOCYTES # (AUTO) 0.7 10^3/uL (0.0-1.0); MONOCYTES % (AUTO) 13.3 %; NEUTROPHILS # (AUTO) 3.6 10^3/uL (1.5-6.6); NEUTROPHILS % (AUTO) 65.8 %; PLT - PLATELET COUNT 276 10^3/uL (130-450); RED BLOOD COUNT 4.13 10^6/uL (4.20-5.40); RED CELL DISTRIBUTION WIDTH 17.2 % (12.0-15.0); WHITE BLOOD COUNT 5.4 x10^3/uL (4.8-10.8)
[2018-01-24 06:07] LABS: ALBUMIN 3.5 g/dL (3.2-5.5); ALBUMIN/GLOBULIN RATIO 0.8 (1.0-2.2); BILIRUBIN,TOTAL 0.2 mg/dL (0.2-1.0); CALCIUM 9.3 mg/dL (8.5-10.3); CREATININE 1.1 mg/dL (0.4-1.0); CRP - C-REACTIVE PROTEIN 1.3 mg/dL (0-1.0); TOTAL PROTEIN 7.8 g/dL (6.7-8.2)
--- NOTE | 2018-01-24 06:18 | XRAY Report ---
EXAM: CHEST RADIOGRAPHY EXAM DATE: 01/24/2018 05:48 AM. CLINICAL HISTORY: Fever, cough. COMPARISON: 02/22/2016. TECHNIQUE: 1 view. FINDINGS: Lungs/Pleura: Large lung volumes. Mild bibasilar atelectasis or infiltrate. No definite pleural effus ion seen. Costophrenic angles are not completely included. Mediastinum: Heart size upper normal. Other: None. IMPRESSION: 1. Large lung volumes and borderline heart size. 2. Mild bibasilar atelectasis or infiltrate. [facility] Referring Provider Line: [phone] SITE ID: [id number]
--- NOTE | 2018-01-24 06:18 | XRAY Preliminary Report ---
Exam: XR CHEST 1 VIEW X-RAY IMPRESSION: 1. Large lung volumes and borderline heart size. 2. Mild bibasilar atelectasis or infiltrate. [facility] SITE ID: [id number]
[2018-01-24] MEDS: CLINDAMYCIN 600 MG/50 ML 50 ML IV ONE (06:21)
[2018-01-24] MEDS: ACETAMINOPHEN 500 MG TABLET PO STA (06:25)
[2018-01-24 06:52] VITALS: BP 119/48
== END 2018-01-24 07:04 | disposition home or self-care (01) ==
LOC: EDUNIT# → SUPCPDRO 05:24 → ED 05:24
DX: L03.116 Cellulitis of left lower limb (principal); E11.9 Type 2 diabetes mellitus without complications; I10 Essential (primary) hypertension; Z79.84 Long term (current) use of oral hypoglycemic drugs; Z86.73 Personal history of transient ischemic attack (TIA), and cerebral infarction without residual deficits
CPT/HCPCS: 36415; 71045; 80053; 83605; 83690; 85025; 85651; 86140; 96365; 99284; A9270

== ENCOUNTER 2018-01-29 20:51 | Emergency (ER) | payer MEDICARE, MEDICAID ==
[2018-01-29 22:01] LABS: BASOPHILS % (AUTO) 0.6 %; EOSINOPHILS # (AUTO) 0.2 10^3/uL (0.0-0.7); EOSINOPHILS % (AUTO) 4.9 %; HGB - HEMOGLOBIN 11.7 g/dL (12.0-16.0); LYMPHOCYTES # (AUTO) 1.5 10^3/uL (1.5-3.5); LYMPHOCYTES % (AUTO) 33.7 %; MEAN CORPUSCULAR HEMOGLOBIN 27.5 pg (27.0-31.0); MEAN CORPUSCULAR HGB CONC 32.1 g/dL (32.0-36.0); MEAN CORPUSCULAR VOLUME 85.8 fL (81.0-99.0); MEAN PLATELET VOLUME 7.5 fL (7.9-10.8); MONOCYTES # (AUTO) 0.5 10^3/uL (0.0-1.0); MONOCYTES % (AUTO) 11.5 %; NEUTROPHILS # (AUTO) 2.2 10^3/uL (1.5-6.6); NEUTROPHILS % (AUTO) 49.3 %; PLT - PLATELET COUNT 296 10^3/uL (130-450); RED BLOOD COUNT 4.24 10^6/uL (4.20-5.40); RED CELL DISTRIBUTION WIDTH 16.9 % (12.0-15.0); WHITE BLOOD COUNT 4.4 x10^3/uL (4.8-10.8)
--- NOTE | 2018-01-29 22:06 | ED Physician Documentation ---
History of Present Illness - Stated complaint Stated Complaint: LEG PX/FEVER - Chief complaint Chief Complaint: Ext Problem - History obtained from History obtained from: Patient, Family - History of Present Illness Timing: Other (approximately 4 weeks ago) Pain level now: 7 Improved by: rest Worsened by: palpation, ambulation - Additonal information Additional information: patient fell approximately 4 weeks ago and sustained abrasion to anterior proximal pre-tibial surface, subsequently developed erythema, swelling, and pain. She had outpatient tib/fib xrays 01/12 (no fx), and was prescribed keflex. she was then evaluated in this ED 01/14, given rocephin and bactrim was added ( told to continue keflex). She returned 01/24 c/o worsening redness and swelling LLE, had blood work that included normal WBC, normal ESR, normal lactate, and mildly elevated CRP. Also had CXR which showed possible bilateral basilar atelectasis vs. infiltrate. She had finished keflex and bactrim, was prescribed clindamycin. She has only one day left of the clindamycin, returns to ED due to ongoing redness, swelling, pain LLE. She was evaluated in her PMD's office earlier today; patient says she was evaluated by someone covering for her PMD and that patient was told no further PO antibiotics would be prescribed but that patient might need IV antibiotics. 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 : Retention HEENT: Other Psych: Depression Musculoskeletal: None Derm: None - Past Surgical History Past Surgical History: Yes General: Cholecystectomy, Appendectomy, Bowel surgery, Hiatal hernia repair, Colonoscopy Ortho: Other /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 HEENT: Tonsil/Adenoidectomy - Present Medications Home Medications: Ambulatory Orders Medication Instructions Recorded Confirmed Fenofibrate [Lipofen] 54 mg PO HS 02/18/13 01/14/18 Calcium Carb/Vit D3/Minerals 1 each PO DAILY 12/26/13 01/14/18 [Calcium 1,200 mg Tablet Chew] Cholecalciferol (Vitamin D3) 2,000 unit PO DAILY 12/26/13 01/14/18 [Vitamin D] Clopidogrel [Plavix] 75 mg PO DAILY 01/06/14 01/14/18 Sertraline HCl [Zoloft] 100 mg PO QDBREAKFAST 12/03/14 01/14/18 Acetaminophen [Tylenol Extra 1,000 mg PO DAILY PRN 12/12/14 01/14/18 Strength] Vitamin B Complex 1,000 mg PO DAILY 01/04/15 01/14/18 Topiramate [Topiramate ER] 50 mg PO BID 07/27/15 01/14/18 Trazodone HCl 100 mg PO QPM 01/23/16 01/14/18 Albuterol Sulfate [Proventil Hfa 1 - 2 puffs IH Q4H PRN #1 02/22/16 01/14/18 Inhaler] hfa.aer.ad Bupropion HCl [Wellbutrin Sr] 300 mg PO DAILY 03/22/16 01/14/18 Gabapentin 600 mg PO TID 03/22/16 01/14/18 metFORMIN [Glucophage] 500 mg PO BID 03/22/16 01/14/18 Magnesium Hydroxide [Milk of 400 mg PO DAILY PRN #240 ml 07/29/16 01/14/18 Magnesia] HYDROcod/ACETAM 5/325 [[place] 5/325] 1 - 2 ea PO Q6H PRN #15 tablet 10/22/16 Amitriptyline [Elavil] 25 mg QPM 12/08/16 01/14/18 Fenofibrate 54 mg PO DAILY 02/14/17 01/14/18 Lidocaine Patch 5% [Lidoderm Patch] 1 each TOP DAILY PRN #10 patch 02/14/17 Hydrocodone/Acetaminophen [Vicodin 1 each PO Q6HR PRN #12 tablet 03/26/17 5-300 mg Tablet] Nitrofurantoin Monohyd/M-Cryst 100 mg PO BID #10 capsule 11/16/17 01/14/18 [Macrobid 100 mg Capsule] Cephalexin [Keflex] 500 mg PO QID 01/14/18 01/14/18 Sulfamethox/Trimeth 800/160 1 each PO BID #14 tablet 01/14/18 [Bactrim Ds 800/160] Clindamycin HCl [Clindamycin 300MG 300 mg PO Q6H 7 Days capsule 01/24/18 CAP] Amox/Clav 875/125 [Augmentin] 1 each PO Q12H #19 tablet 01/30/18 - Allergies Allergies/Adverse Reactions: Allergies Allergy/AdvReac Type Severity Reaction Status Date / Time vancomycin Allergy Hives Verified 01/29/18 20:59 - Social History Does the pt smoke?: No Smoking Status: Never smoker Does the pt drink ETOH?: No Does the pt have substance abuse?: No - Immunizations Immunizations are current?: Yes Immunizations: TDAP >10years/unknown - POLST Patient has POLST: Yes POLST Status: DNR PD ED PE NORMAL - Vitals Vital signs reviewed: Yes - General General: Alert and oriented X 3, No acute distress, Well developed/nourished - Respiratory Respiratory: No respiratory distress PD ED PE EXPANDED - Respiratory Respiratory: Wheezing (trace bilateral end-expiratory wheezing. good airflow bilaterally) - Extremities ALPA LE visual: 1 - rash (confluent erythema with sharp, distinct margins. no crepitus or fluctuance), swelling, tenderness Results - Vitals Vitals: Vital Signs - 24 hr 01/29/18 01/30/18 20:54 00:34 Temperature 37.1 C Heart Rate 107 H 78 Respiratory 22 16 Rate Blood Pressure 170/106 H 143/68 H O2 Saturation 96 95 Oxygen O2 Source [With Activity] Nasal cannula O2 Source [Without Activity] Room air O2 Source Room air - Labs Labs: Laboratory Tests 01/29/18 01/29/18 01/29/18 21:50 21:50 21:50 WBC 4.4 L RBC 4.24 Hgb 11.7 L Hct 36.4 L MCV 85.8 MCH 27.5 MCHC 32.1 RDW 16.9 H Plt Count 296 MPV 7.5 L Neut # 2.2 Lymph # 1.5 [place] # 0.5 Eos # 0.2 Baso # 0.0 Absolute Nucleated RBC 0.00 Nucleated RBC % 0.0 Sodium 137 Potassium 3.7 Chloride 106 Carbon Dioxide 27 Anion Gap 4.0 L BUN 22 H Creatinine 0.9 Estimated GFR (MDRD) 63 L Glucose 120 H Lactic Acid 1.2 Calcium 9.6 Total Bilirubin < 0.2 L AST 16 ALT 14 Alkaline Phosphatase 69 Total Protein 8.0 Albumin 3.6 Globulin 4.3 H Albumin/Globulin Ratio 0.8 L Lipase 45 - Rads (name of study) LLE doppler US Radiology: Prelim report reviewed, See rad report PD MEDICAL DECISION MAKING - ED course Complexity details: reviewed old records, reviewed results, re-evaluated patient , considered differential, d/w patient, d/w family ED course: no evidence of DVT on doppler US. blood test results tonight are again reassuring, with WBC 4.4 and no left shift, normal lactate. she has not had improvement with cephalosporin (keflex), bactrim, clindamycin. Given IV unasyn in ED and discharged with rx augmentin. Departure - Departure Disposition: 01 Home, Self Care Clinical Impression: Cellulitis Qualifiers: Site of cellulitis: extremity Site of cellulitis of extremity: lower extremity Laterality: left Qualified Code(s): L03.116 - Cellulitis of left lower limb Condition: Good Instructions: ED Infec Skin Cellulitis Follow-Up: Jim Potter MD [Primary Care Provider] - Within 3 Days Prescriptions: Amox/Clav 875/125 [Augmentin] 1 each PO Q12H #19 tablet Discharge Date/Time: 01/30/18 01:18
[2018-01-29 22:13] LABS: ALBUMIN 3.6 g/dL (3.2-5.5); ALBUMIN/GLOBULIN RATIO 0.8 (1.0-2.2); ALKALINE PHOSPHATASE 69 IU/L (42-121); ALT ALANINE AMINOTRANSFERASE 14 IU/L (10-60); AST ASPARTATE AMINOTRANSFERASE 16 IU/L (10-42); BILIRUBIN,TOTAL < 0.2 mg/dL (0.2-1.0); BUN - BLOOD UREA NITROGEN 22 mg/dL (6-20); CALCIUM 9.6 mg/dL (8.5-10.3); CARBON DIOXIDE - CO2 27 mmol/L (21-32); CHLORIDE 106 mmol/L (101-111); CREATININE 0.9 mg/dL (0.4-1.0); GFR - MDRD 63 (>89); GLUCOSE 120 mg/dL (70-100); LIPASE 45 U/L (22-51); SODIUM 137 mmol/L (135-145)
[2018-01-29] MEDS ORDERED: HYDROcod/ACETAM 5/325 MG TABLET PO STA (22:33)
--- NOTE | 2018-01-29 23:55 | Ultrasound Report ---
EXAM: LEFT LOWER EXTREMITY VENOUS ULTRASOUND EXAM DATE: 01/29/2018 10:44 PM. CLINICAL HISTORY: Swelling. Erythema. Trauma 4 weeks ago. COMPARISON: None. TECHNIQUE: Real-time sonographic vascular imaging was performed by the dipper machine operator through the lower extremity utilizing both color-flow and Doppler spectral analysis. Multiple direct marketing representative static kvng ges were saved for review. FINDINGS: Common Femoral Vein (CFV): Normal. CFV-GSV [place]: Normal. Profunda Femoral Vein (PFV): Normal. Femoral Vein (FV) Prox: Normal. Femoral Vein (FV) Mid: Normal. Femoral Vein (FV) Dist: Limited visualization. Popliteal Vein: Normal. Posterior Tibial Veins: Limited visualization. Peroneal Veins: Normal. Other: Hypoechoic avascular collection in the deep subcutaneous fat of the left ankle 4.7 x 0.8 x 3.1 cm. IMPRESSION: 1. No evidence for deep venous thrombosis. 2. Complex hypoechoic avascular collection in the deep subcutaneous fat at the ankle compatible with hematoma. [facility] Referring Provider Line: [phone] SITE ID: [id number]
[2018-01-30] MEDS ORDERED: AMPICILLIN/SULBACTAM 3 GM in SODIUM CHLORIDE 0.9% MINIBAG 100 ML IV STA (00:32)
[2018-01-30 00:35] VITALS: BP 143/68
== END 2018-01-30 01:18 | disposition home or self-care (01) ==
LOC: ED 20:51
DX: L03.116 Cellulitis of left lower limb (principal); I10 Essential (primary) hypertension; E11.9 Type 2 diabetes mellitus without complications; I48.91 Unspecified atrial fibrillation; Z79.01 Long term (current) use of anticoagulants; Z79.84 Long term (current) use of oral hypoglycemic drugs; Z86.73 Personal history of transient ischemic attack (TIA), and cerebral infarction without residual deficits
CPT/HCPCS: 36415; 80053; 83605; 83690; 85025; 93971; 96365; 99283; A9270

== ENCOUNTER 2018-04-16 08:44 | Outpatient (CLI) | payer MEDICARE, MEDICAID ==
[2018-04-16 13:04] LABS: BASOPHILS # (AUTO) 0.1 10^3/uL (0.0-0.1); EOSINOPHILS # (AUTO) 0.1 10^3/uL (0.0-0.7); EOSINOPHILS % (AUTO) 2.7 %; HGB - HEMOGLOBIN 12.2 g/dL (12.0-16.0); LYMPHOCYTES # (AUTO) 1.4 10^3/uL (1.5-3.5); LYMPHOCYTES % (AUTO) 27.2 %; MEAN CORPUSCULAR HEMOGLOBIN 29.6 pg (27.0-31.0); MEAN CORPUSCULAR VOLUME 89.7 fL (81.0-99.0); MEAN PLATELET VOLUME 8.2 fL (7.9-10.8); MONOCYTES # (AUTO) 0.4 10^3/uL (0.0-1.0); MONOCYTES % (AUTO) 8.2 %; NEUTROPHILS # (AUTO) 3.2 10^3/uL (1.5-6.6); NEUTROPHILS % (AUTO) 60.9 %; PLT - PLATELET COUNT 279 10^3/uL (130-450); RED BLOOD COUNT 4.11 10^6/uL (4.20-5.40); RED CELL DISTRIBUTION WIDTH 15.1 % (12.0-15.0); WHITE BLOOD COUNT 5.2 x10^3/uL (4.8-10.8)
[2018-04-16 13:24] LABS: HB2 TOTAL 13.2 g/dL; HEMOGLOBIN A1C 0.6 g/dL; HEMOGLOBIN A1C % 6.3 % (4.6-6.2)
[2018-04-16 13:38] LABS: ALBUMIN 3.3 g/dL (3.2-5.5); ALBUMIN/GLOBULIN RATIO 0.8 (1.0-2.2); ALKALINE PHOSPHATASE 66 IU/L (42-121); ALT ALANINE AMINOTRANSFERASE 12 IU/L (10-60); AST ASPARTATE AMINOTRANSFERASE 16 IU/L (10-42); BILIRUBIN,TOTAL 0.5 mg/dL (0.2-1.0); BUN - BLOOD UREA NITROGEN 16 mg/dL (6-20); CALCIUM 9.3 mg/dL (8.5-10.3); CARBON DIOXIDE - CO2 24 mmol/L (21-32); CHLORIDE 108 mmol/L (101-111); CHOL/HDL RATIO 2.3 (<4.4); CHOLESTEROL 107 mg/dL; CREATININE 0.9 mg/dL (0.4-1.0); GFR - MDRD 63 (>89); GLUCOSE 129 mg/dL (70-100); HDL CHOLESTEROL 46 mg/dL; LDL CHOLESTEROL,CALCULATED 40 mg/dL; LDL/HDL RATIO 0.9 (<4.4); SODIUM 137 mmol/L (135-145); TOTAL PROTEIN 7.4 g/dL (6.7-8.2); VLDL CHOLESTEROL 21 mg/dL
== END 2018-04-16 08:45 | disposition home or self-care (01) ==
LOC: LAB.N 08:44
PROVIDERS: ATTEND Family Medicine
DX: D50.9 Iron deficiency anemia, unspecified (principal); E78.1 Pure hyperglyceridemia; E11.9 Type 2 diabetes mellitus without complications
CPT/HCPCS: 36415; 80053; 80061; 83036; 83721; 85025

== ENCOUNTER 2018-04-25 10:21 | Outpatient (CLI) | payer MEDICARE, MEDICAID | END 2018-04-25 10:22 | disposition short-term general hospital (02) | LOC: EMS 10:21 | PROVIDERS: ATTEND Surgery | DX: R51 Headache (principal); R47.9 Unspecified speech disturbances; R29.810 Facial weakness | CPT/HCPCS: A0425; A0427; A0888 ==

== ENCOUNTER 2018-05-02 10:08 | Outpatient (CLI) | payer MEDICARE, MEDICAID | END 2018-05-02 10:09 | disposition home or self-care (01) | LOC: SC 10:08 | PROVIDERS: ATTEND Nurse Practitioner Family | DX: G47.33 Obstructive sleep apnea (adult) (pediatric) (principal) | CPT/HCPCS: 99214; G0463; 99212 ==

== ENCOUNTER 2018-05-27 16:11 | Outpatient (CLI) | payer MEDICARE, MEDICAID | END 2018-05-27 16:12 | disposition short-term general hospital (02) | LOC: EMS 16:11 | PROVIDERS: ATTEND Surgery | DX: R06.00 Dyspnea, unspecified (principal); R00.0 Tachycardia, unspecified | CPT/HCPCS: A0425; A0427; A0888 ==

== ENCOUNTER 2018-06-24 11:52 | Outpatient (CLI) | payer MEDICARE, MEDICAID | END 2018-06-24 11:53 | disposition short-term general hospital (02) | LOC: EMS 11:52 | PROVIDERS: ATTEND Surgery | DX: M25.562 Pain in left knee (principal); W19.XXXA Unspecified fall, initial encounter | CPT/HCPCS: A0425; A0429; A0888 ==

== ENCOUNTER 2018-07-19 10:28 | Outpatient (CLI) | payer MEDICARE, MEDICAID ==
[2018-07-19 13:09] LABS: CALCIUM 9.6 mg/dL (8.5-10.3); CREATININE 0.9 mg/dL (0.4-1.0)
[2018-07-19 13:16] LABS: HEMOGLOBIN A1C 0.62 g/dL; HEMOGLOBIN A1C % 6.2 % (4.6-6.2)
== END 2018-07-19 10:29 | disposition home or self-care (01) ==
LOC: LAB.N 10:28
PROVIDERS: ATTEND Family Medicine
DX: E11.9 Type 2 diabetes mellitus without complications (principal)
CPT/HCPCS: 36415; 80048; 83036

== ENCOUNTER 2018-09-22 15:37 | Outpatient (CLI) | payer MEDICARE, MEDICAID | END 2018-09-22 15:38 | disposition critical access hospital (66) | LOC: EMS 15:37 | PROVIDERS: ATTEND Surgery | DX: R55 Syncope and collapse (principal); R46.4 Slowness and poor responsiveness | CPT/HCPCS: A0425; A0429 ==

== ENCOUNTER 2018-09-22 15:52 | Emergency (ER) | payer MEDICARE, MEDICAID ==
[2018-09-22] MEDS ORDERED: KETOROLAC 30 MG/ML VIAL IVP STA (15:58)
[2018-09-22] MEDS ORDERED: LORazepam 2 MG/ML VIAL IVP STA (15:58)
[2018-09-22] MEDS ORDERED: HYDROmorphone 1 MG/ML CARPUJECT IVP STA (15:58)
--- NOTE | 2018-09-22 16:03 | ED Physician Documentation ---
PD HPI FOCAL NEURO - Stated complaint Stated Complaint: SLURRED SPEECH - Chief complaint Chief Complaint: Neuro - History obtained from History obtained from: Patient - History of Present Illness Timing - onset: Today (This is a 68-year-old woman with history of CVA. Since that many years ago she has had recurrent migraines with right-sided symptoms. We have not seen her in a little bit for this, but this used to be such a common phenomenon that she actually had an OCT care plan for recurrent episodes of headache with right-sided weakness because she had had so many CT scans. She says she had an episode a couple of months ago where she was at [facility]. She developed a mild headache a few days ago and then again a left-sided headache with right-sided neurologic symptoms today with stuttering speech and her right side feels "" weird. She says this is very similar to prior episodes of recurrent migraine headaches with neurologic symptoms.) Review of Systems Constitutional: denies: Fever, Chills Cardiac: denies: Chest pain / pressure, Palpitations Respiratory: denies: Dyspnea, Cough GI: reports: Nausea. 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 : Retention HEENT: Other Psych: Depression Musculoskeletal: None Derm: None - Past Surgical History Past Surgical History: Yes General: Cholecystectomy, Appendectomy, Bowel surgery, Hiatal hernia repair, Colonoscopy Ortho: Other /DESULPHURIZER OPERATOR: section HEENT: Tonsil/Adenoidectomy - Present Medications Home Medications: Ambulatory Orders Medication Instructions Recorded Confirmed Fenofibrate [Lipofen] 54 mg PO HS 02/18/13 01/14/18 Calcium Carb/Vit D3/Minerals 1 each PO DAILY 12/26/13 01/14/18 [Calcium 1,200 mg Tablet Chew] Cholecalciferol (Vitamin D3) 2,000 unit PO DAILY 12/26/13 01/14/18 [Vitamin D] Clopidogrel [Plavix] 75 mg PO DAILY 01/06/14 01/14/18 Sertraline HCl [Zoloft] 100 mg PO QDBREAKFAST 12/03/14 01/14/18 Acetaminophen [Tylenol Extra 1,000 mg PO DAILY PRN 12/12/14 01/14/18 Strength] Vitamin B Complex 1,000 mg PO DAILY 01/04/15 01/14/18 Topiramate [Topiramate ER] 50 mg PO BID 07/27/15 01/14/18 Trazodone HCl 100 mg PO QPM 01/23/16 01/14/18 Albuterol Sulfate [Proventil Hfa 1 - 2 puffs IH Q4H PRN #1 02/22/16 01/14/18 Inhaler] hfa.aer.ad Bupropion HCl [Wellbutrin Sr] 300 mg PO DAILY 03/22/16 01/14/18 Gabapentin 600 mg PO TID 03/22/16 01/14/18 metFORMIN [Glucophage] 500 mg PO BID 03/22/16 01/14/18 Magnesium Hydroxide [Milk of 400 mg PO DAILY PRN #240 ml 07/29/16 01/14/18 Magnesia] HYDROcod/ACETAM 5/325 [[place] 5/325] 1 - 2 ea PO Q6H PRN #15 tablet 10/22/16 01/14/18 Amitriptyline [Elavil] 25 mg QPM 12/08/16 01/14/18 Fenofibrate 54 mg PO DAILY 02/14/17 01/14/18 Lidocaine Patch 5% [Lidoderm Patch] 1 each TOP DAILY PRN #10 patch 02/14/17 01/14/18 Hydrocodone/Acetaminophen [Vicodin 1 each PO Q6HR PRN #12 tablet 03/26/17 01/14/18 5-300 mg Tablet] Nitrofurantoin Monohyd/M-Cryst 100 mg PO BID #10 capsule 11/16/17 01/14/18 [Macrobid 100 mg Capsule] Cephalexin [Keflex] 500 mg PO QID 01/14/18 01/14/18 Sulfamethox/Trimeth 800/160 1 each PO BID #14 tablet 01/14/18 [Bactrim Ds 800/160] Clindamycin HCl [Clindamycin 300MG 300 mg PO Q6H 7 Days capsule 01/24/18 CAP] Amox/Clav 875/125 [Augmentin] 1 each PO Q12H #19 tablet 01/30/18 - Allergies Allergies/Adverse Reactions: Allergies Allergy/AdvReac Type Severity Reaction Status Date / Time vancomycin Allergy Hives Verified 01/29/18 20:59 - Social History Does the pt smoke?: No Smoking Status: Never smoker Does the pt drink ETOH?: No Does the pt have substance abuse?: No - Immunizations Immunizations are current?: Yes Immunizations: TDAP >10years/unknown - POLST Patient has POLST: Yes POLST Status: DNR PD ED PE NORMAL - Vitals Vital signs reviewed: Yes - General General: Alert and oriented X 3, No acute distress - HEENT HEENT: PERRL, EOMI - Neck Neck: Supple, no meningeal sign, No bony TTP - Cardiac Cardiac: RRR, No murmur - Respiratory Respiratory: No respiratory distress, Clear bilaterally - Neuro Neuro: Alert and oriented X 3, Other (She has stuttering speech without obvious word finding difficulties. She has no pronator drift of the right upper e xtremity but has slightly weak spiritual minister strength on that side. She does have difficulty getting the right leg off the bed due to weakness. There is no sensory asymmetry throughout the body or face.) Eye Opening: Spontaneous Motor: Obeys Commands Verbal: Oriented GCS Score: 15 NIHSS - Time Time: 16:00 - Level of Consciousness Level of consciousness: (0) Alert, Keenly responsive LOC Questions: (0) Answers both Q's correct LOC Commands: (0) Performs both correctly - Gaze Best Gaze: (0) Normal - Visual Visual: (0) No loss - Facial Palsy Facial Palsy: (0) Normal, symmetrical movement - Motor Arms (both separate) Motor Arm (right): (0) No drift Motor Arm (left): (0) No drift - Motor Legs (both separate) Motor Leg (right): (0) No drift Motor Leg (left): (2) Some effort against gravity - Limb Ataxia Limb Ataxia: (0) Absent - Sensory Sensory: (0) Normal - Best Language Best Language: (0) No aphasia - Dysarthria Dysarthria: (0) Normal - Extinction and Inattention (formally neg Extinction and inattention: (0) No abnormality - Total Score/Results Total Score/Result: 2 Results - Vitals Vitals: Vital Signs - 24 hr 09/22/18 09/22/18 15:53 17:37 Temperature 36.4 C L Heart Rate 87 103 H Respiratory 16 11 L Rate Blood Pressure 153/83 H 173/91 H O2 Saturation 98 93 Oxygen O2 Source [With Activity] Nasal cannula O2 Source [Without Activity] Room air O2 Source Nasal cannula PD MEDICAL DECISION MAKING - ED course ED course: This is a 68-year-old woman with history of CVA and Post CVA migraines with recurrent neurologic deficits. She has been CT at an MRI many times in the past for similar episodes without relevant changes. We discussed CT imaging of the head today but she declined after discussion, she feels like this is an exacerbation of her recurrent headache syndrome. After divided doses of medications she was feeling much better and back to her baseline. Departure - Departure Disposition: Home, Self Care Clinical Impression: Late effects of CVA (cerebrovascular accident), Headache Condition: Stable Record reviewed to determine appropriate education?: Yes Instructions: ED Headache Migraine Comments: Your blood pressure was elevated today on check into the emergency department. This does not mean that you have hypertension, it is a common phenomenon to come to the emergency department and have elevated blood pressure. I recommend that you see your primary care physician within the week to have it rechecked when you are feeling better.
[2018-09-22] MEDS ORDERED: METOCLOPRAMIDE 10 MG/2 ML VIAL IVP STA (16:44)
[2018-09-22 19:52] VITALS: BP 136/67
== END 2018-09-22 20:08 | disposition home or self-care (01) ==
LOC: EDUNIT# → ED 15:52
DX: G44.89 Other headache syndrome (principal); I69.398 Other sequelae of cerebral infarction; I10 Essential (primary) hypertension; I48.91 Unspecified atrial fibrillation; E11.9 Type 2 diabetes mellitus without complications; Z79.84 Long term (current) use of oral hypoglycemic drugs; Z79.02 Long term (current) use of antithrombotics/antiplatelets
CPT/HCPCS: 96374; 96375; 99284; J1170; J2060; J2765

== ENCOUNTER 2018-10-23 08:00 | Outpatient (CLI) | payer MEDICARE, MEDICAID ==
[2018-10-23 12:34] LABS: CALCIUM 9.6 mg/dL (8.5-10.3); CREATININE 1.2 mg/dL (0.4-1.0)
[2018-10-23 12:52] LABS: HB2 TOTAL 12.4 g/dL; HEMOGLOBIN A1C 0.54 g/dL; HEMOGLOBIN A1C % 6.1 % (4.6-6.2)
== END 2018-10-23 23:59 | disposition home or self-care (01) ==
LOC: LAB.N 08:00
DX: E11.9 Type 2 diabetes mellitus without complications (principal)
CPT/HCPCS: 36415; 80048; 83036

== ENCOUNTER 2018-10-30 07:52 | Outpatient (CLI) | payer MEDICARE, MEDICAID ==
--- NOTE | 2018-10-31 10:17 | DEXA Report ---
Reason: BONE DISORDER Procedure Date: 10/30/2018 Accession Number: [id number] / [id number] Procedure: DEX - Dexa Spine and/or Hip CPT Code: FULL RESULT: EXAM: Dexa Spine and/or Hip DATE: 10/30/2018 8:47 AM CLINICAL HISTORY: BONE DISORDER TECHNIQUE: Dual energy x-ray absorptiometry (DXA) was performed on a [employer] System. Regions measured are the AP Spine, femoral neck, and if needed forearm. COMPARISON: None. In accordance with the International Society for Clinical Densitometry (ISCD) guidelines, data from previous exams may be reanalyzed using current recommendations and techniques. This is done to allow a more accurate basis for comparison with the current study. FINDINGS: The data for the lumbar spine is as follows: BMD (g/cm/cm) T-SCORE Z-SCORE REGION L1 1.117 -0.1 0.3 L2 1.342 1.2 1.6 L3 1.585 3.2 3.7 L4 excluded due to spinal fusion hardware TOTAL 1.367 1.6 2.1 NOTE: All evaluable vertebrae are used for classification The data for the hip is as follows: BMD (g/cm/cm) T-SCORE Z-SCORE REGION Neck 1.022 -0.1 0.7 TOTAL 1.073 0.5 0.9 NOTE: The femoral neck or total proximal femur, whichever is lowest, is used for classification. IMPRESSION: THE WHO CLASSIFICATION BASED ON THE INTERNATIONAL REFERENCE STANDARD IS NORMAL. THE FRACTURE RISK IS NOT INCREASED. RECOMMENDATION: Patients with diagnosis of osteoporosis or osteopenia should have regular bone mineral density assessment. For those eligible for Medicare, routine testing is allowed once every 2 years. Testing frequency can be increased for patients who have rapidly progressing disease or for those who are receiving medical therapy to restore bone mass. COMMENT: World Health Organization (WHO) definitions for osteoporosis and osteopenia: NORMAL BMD: T-score at -1.0 or higher, fracture risk is low OSTEOPENIA BMD: T-score between -1.0 and -2.5, fracture risk is increased. OSTEOPOROSIS BMD: T-score at -2.5 or lower, fracture risk is high. National Osteoporosis Foundation recommends: 1. Obtain adequate dietary calcium (at least 1200 mg per day) and vitamin D (400-800 international units per day). 2. Participate, as appropriate, in regular weightbearing and muscle-strengthening exercise. 3. Avoid tobacco use and reduce alcohol and caffeine intake. 4. For more detailed information see the website at www.NOF.org.
== END 2018-10-30 07:53 | disposition home or self-care (01) ==
LOC: DI 07:52
PROVIDERS: ATTEND Family Medicine
DX: M89.9 Disorder of bone, unspecified (principal)
CPT/HCPCS: 77080

== ENCOUNTER 2018-10-31 11:30 | Outpatient (CLI) | payer MEDICARE, MEDICAID | END 2018-10-31 11:31 | disposition short-term general hospital (02) | LOC: EMS 11:30 | PROVIDERS: ATTEND Surgery | DX: M79.622 Pain in left upper arm (principal); W05.0XXA Fall from non-moving wheelchair, initial encounter; Y92.009 Unspecified place in unspecified non-institutional (private) residence as the place of occurrence of the external cause | CPT/HCPCS: A0425; A0427 ==

== ENCOUNTER 2018-11-08 14:55 | Outpatient (CLI) | payer MEDICARE, MEDICAID ==
--- NOTE | 2018-11-30 11:27 | XRAY Report ---
Reason: LEFT ARM PAIN Procedure Date: 11/08/2018 Accession Number: [id number] / [id number] Procedure: XRN - Humerus LT CPT Code: FULL RESULT: EXAM: LEFT HUMERUS RADIOGRAPHY EXAM DATE: 11/08/2018 03:13 PM. CLINICAL HISTORY: Left arm pain. COMPARISON: None. TECHNIQUE: 2 views. FINDINGS: Bones: Evaluation of the medial mid diaphysis of the humerus is limited by soft tissue overlap. Within these limitations, no abnormality is detected. Joints: Normal. No effusions or subluxations in the visualized shoulder or elbow joints. Soft Tissues: Normal. No soft tissue swelling. IMPRESSION: No fracture or bone lesion is detected, mildly limited evaluation of the medial mid diaphysis. RADIA
== END 2018-11-08 14:56 | disposition home or self-care (01) ==
LOC: DI.N 14:55
PROVIDERS: ATTEND Physician Assistant Medical
DX: M79.602 Pain in left arm (principal)

== ENCOUNTER 2018-11-19 09:12 | Outpatient (CLI) | payer MEDICARE, MEDICAID ==
--- NOTE | 2018-11-20 08:33 | Mammography Report ---
Reason: SCREENING MAMMO Procedure Date: 11/19/2018 Accession Number: [id number] / [id number] Procedure: MGN - Screening Mammo Dig Bilat CPT Code: FULL RESULT: EXAM: Screening Mammo Dig Bilat DATE: 11/19/2018 10:36 AM CLINICAL HISTORY: Screening encounter. No reported risk factors. TECHNIQUE: Bilateral CC, laterally exaggerated CC, MLO views were obtained. COMPARISON: 12/18/2014 through 07/19/2013. FINDINGS: The breasts demonstrate diffuse fatty replacement bilaterally. There are bilateral coarse typically benign calcifications. No suspicious masses, clustered microcalcifications, or regions of architectural distortion are identified. IMPRESSION: Benign findings RECOMMENDATION: Routine annual screening unless otherwise clinically indicated. BIRADS CATEGORY 2: Benign findings STANDARD QUALIFYING STATEMENTS: 1. This examination was reviewed with the aid of Computer-Aided Detection (CAD). 2. A negative or benign imaging report should not delay biopsy if clinically suspicious findings are present. Consider surgical consultation if warrented. More than 5% of cancers are not identified by imaging. 3. Dense breasts may obscure an underlying neoplasm.
== END 2018-11-19 09:13 | disposition home or self-care (01) ==
LOC: DI.N 09:12
DX: Z12.31 Encounter for screening mammogram for malignant neoplasm of breast (principal)
CPT/HCPCS: 77067

== ENCOUNTER 2019-01-09 12:23 | Outpatient (CLI) | payer MEDICARE, MEDICAID | END 2019-01-09 12:24 | disposition short-term general hospital (02) | LOC: EMS 12:23 | PROVIDERS: ATTEND Surgery | DX: R47.81 Slurred speech (principal); R51 Headache | CPT/HCPCS: A0425; A0427; A0888 ==

== ENCOUNTER 2019-04-17 08:00 | Outpatient (CLI) | payer MEDICARE, MEDICAID ==
[2019-04-17 18:57] LABS: BASOPHILS % (AUTO) 0.8 %; EOSINOPHILS # (AUTO) 0.2 10^3/uL (0.0-0.7); EOSINOPHILS % (AUTO) 3.5 %; HGB - HEMOGLOBIN 11.9 g/dL (12.0-16.0); LYMPHOCYTES # (AUTO) 1.2 10^3/uL (1.5-3.5); LYMPHOCYTES % (AUTO) 24.4 %; MEAN CORPUSCULAR HEMOGLOBIN 29.1 pg (27.0-31.0); MEAN CORPUSCULAR HGB CONC 30.7 g/dL (32.0-36.0); MEAN CORPUSCULAR VOLUME 94.9 fL (81.0-99.0); MEAN PLATELET VOLUME 9.9 fL (7.9-10.8); MONOCYTES # (AUTO) 0.3 10^3/uL (0.0-1.0); MONOCYTES % (AUTO) 6.5 %; NEUTROPHILS # (AUTO) 3.1 10^3/uL (1.5-6.6); NEUTROPHILS % (AUTO) 64.6 %; PLT - PLATELET COUNT 303 10^3/uL (130-450); RED BLOOD COUNT 4.09 10^6/uL (4.20-5.40); RED CELL DISTRIBUTION WIDTH 16.7 % (12.0-15.0); WHITE BLOOD COUNT 4.8 x10^3/uL (4.8-10.8)
[2019-04-17 19:19] LABS: HB2 TOTAL 12.8 g/dL; HEMOGLOBIN A1C 0.53 g/dL; HEMOGLOBIN A1C % 5.9 % (4.6-6.2)
[2019-04-17 19:36] LABS: ALBUMIN 3.6 g/dL (3.2-5.5); ALBUMIN/GLOBULIN RATIO 0.9 (1.0-2.2); ALKALINE PHOSPHATASE 43 IU/L (42-121); ALT ALANINE AMINOTRANSFERASE 18 IU/L (10-60); AST ASPARTATE AMINOTRANSFERASE 23 IU/L (10-42); BILIRUBIN,TOTAL 0.5 mg/dL (0.2-1.0); BUN - BLOOD UREA NITROGEN 19 mg/dL (6-20); CALCIUM 9.4 mg/dL (8.5-10.3); CARBON DIOXIDE - CO2 25 mmol/L (21-32); CHLORIDE 108 mmol/L (101-111); CHOL/HDL RATIO 2.7 (<4.4); CHOLESTEROL 167 mg/dL; CREATININE 1.1 mg/dL (0.4-1.0); GFR - MDRD 50 (>89); GLUCOSE 105 mg/dL (70-100); HDL CHOLESTEROL 61 mg/dL; LDL CHOLESTEROL,CALCULATED 85 mg/dL; LDL/HDL RATIO 1.4 (<4.4); SODIUM 141 mmol/L (135-145); TOTAL PROTEIN 7.6 g/dL (6.7-8.2); VLDL CHOLESTEROL 21 mg/dL
[2019-04-20 16:31] LABS: ABNORMAL PROTEIN BAND 1 1.3 g/dL (NONE DETECTED); ALBUMIN 3.7 g/dL (3.8-4.8); ALPHA 1 GLOBULIN 0.3 g/dL (0.2-0.3); ALPHA 2 GLOBULIN 0.6 g/dL (0.5-0.9); BETA 1 GLOBULIN 0.6 g/dL (0.4-0.6); BETA 2 GLOBULIN 1.7 g/dL (0.2-0.5); GAMMA GLOBULIN 0.4 g/dL (0.8-1.7)
== END 2019-04-17 23:59 | disposition home or self-care (01) ==
LOC: LAB.N 08:00
PROVIDERS: ATTEND Family Medicine
DX: E11.9 Type 2 diabetes mellitus without complications (principal); D47.2 Monoclonal gammopathy
CPT/HCPCS: 36415; 80053; 80061; 81599; 82043; 82232; 82570; 83036; 83615; 83721; 83883; 84155; 84165; 84443; 85025; 86334

== ENCOUNTER 2019-04-19 10:29 | Outpatient (CLI) | payer MEDICARE, MEDICAID ==
[2019-04-19 13:06] LABS: MICROALBUM/CREATININE RATIO,UR 3.6 ug/mg (<30.0); MICROALBUMIN,URINE 0.2 mg/dL (0-300.0)
== END 2019-04-19 23:59 | disposition home or self-care (01) ==
LOC: LAB.R 10:29
PROVIDERS: ATTEND Family Medicine
DX: E11.9 Type 2 diabetes mellitus without complications (principal)
CPT/HCPCS: 82043; 82570

== ENCOUNTER 2019-05-20 14:43 | Outpatient (CLI) | payer MEDICARE, MEDICAID ==
[2019-05-20 15:50] VITALS: BP 130/76
--- NOTE | 2019-05-20 15:50 | SLEEP CARE CONSULTATION ---
Information from patient questionnaire entered by Tere Amaya. I have reviewed and concur with the information entered by Tere Amaya. This document represents the service I personally performed and the decisions made by me, Delaney Blanchard, RN, MSN, PLANT PRODUCTION WORKER. History of Present Illness Previous diagnosis: Extremely Severe, Obstructive Sleep Apnea-Hypopnea Syndrome AHI: 138.5 Reason for CPAP/BiPAP follow up: annual Equipment type: CPAP Equipment obtained from: [employer] [facility] Mask style: Full face (Quatro Air) Mask brand: Resmed Backup mask available: Yes Last cushion change: a month ago Prior sleep studies: Yes Year and Where: [facility] additional information: Patient admitted to [facility] in December from to for control of post stroke migraine. Then she was in rehab for 2 months getting daily physical and occupational therapy. She is now in PT 2 times a week. She continues to use a wheeled walker with seat. CPAP Compliance Data - Data Reviewed with Patient Average duration of nightly device use: Patient uses about from 11pm to 7am Subjective Missed days of use due to: reports: illness (5 days while at [facility] for care of a post stroke migraine in December and then went to rehab for 2 months and still in physcial therapy a 2 times a week. ) Patient concerns: denies: aerophagia, mask discomfort, air blowing in eyes, mask leak noise, condensation in mask/hose, nasal congestion, dry mouth, nose, throat, epistaxis Observed to snore while using device: No (sleeps alone) On therapy, patient: reports: sleeping better, awakening more refreshed, being more awake and alert during the day, more rested overall. denies: drowsiness while driving (does not drive since her stroke - her caregiver drives her 5 days a week or she uses paratransit. ) Initial [place] Sleepiness Scale score: 6 Current [place] Sleepiness Scale score: 10 Allergies and Home Medications Allergy and home medication list: Medication Name (generic/name brand) Strength & Dosage Plavix 75mg tab one daily Metformin 500mg tab one twice daily Gabapentin 600mg tab one three times a day Fluoxetine 30mg tab one daily Fenofibrate 54mg tab one daily Trazodone 100mg tab one daily at bedtime Wellbutrin 100mg tab two daily Botox injections Every 6 months for migraine reduction by neurologist. immetrex injection as needed for migraines Physical Exam Blood Pressure: 130/76 Cuff size: long Heart Rate: 76 O2 Saturation: 98 Height: 5 ft 4 in Weight (kg): 120.202 kg Body Mass Index: 45.4 BMI Classification: Class 3 Impression and Plan 1. Obstructive Sleep Apnea-Hypopnea Syndrome, extremely severe with unknown treatment compliance and unknown apnea control. She brought her card in for download and I was unable to download on new [employer] program. I will download later and call patient with results. Since her CPAP is over 6 years old and starting to make noise, I will update her CPAP once I can get her compliance report. I showed her the different devices and she would prefer the [employer] autoCPAP. I will make DWO prescription for new device. She was informed of compliance guidelines and to make an appointment the day she receives her device for followup in about 6 weeks. On CPAP therapy, the patient has better sleep quality and is more rested overall. Patient's apnea severity and rationale for treatment to reduce apnea, improve sleep quality and reduce cardiovascular and cerebrovascular events was reviewed. I also reviewed the benefit of consistent device use of CPAP for hypertension, cerebrovascular disease, diabetes, depression/anxiety, migraines. * Continue CPAP pressure at 11 cmH2O * Obtain compliance report. * Update CPAP device after compliance received. * Notify me if snoring with mask or feeling that the pressure is too much or too little * Attempt to lose weight * Return for follow up 6weeks after obtains new device, or sooner if concerns arise * Addendum: I downloaded the card the next day and it was found to be empty. Staff called patient and informed to pick up attendant and place in device so data could be retrieved and then brought back her for download. On 05-29-19 the complaince card was downloaded and compliance report obtained for the past 180days. It showed good treatment compliance of 71.7% of more than 4 hours of use a night with an average of 6.5 hours of nightly CPAP use. Her CPAP is set at [id number] and has good apnea control with a residual AHI of 3.0. Average time in large leak is 1.2 hours. I will make her DWO prescription to update her device. I spent 100% of this 28 minute visit face to face with the patient with greater than 50% of this was spent time counseling the patient and coordination of care.
== END 2019-05-20 14:44 | disposition home or self-care (01) ==
LOC: SC 14:43
PROVIDERS: ATTEND Nurse Practitioner Family
DX: G47.33 Obstructive sleep apnea (adult) (pediatric) (principal)
CPT/HCPCS: 99214; G0463; 99212

== ENCOUNTER 2019-08-20 08:00 | Outpatient (CLI) | payer MEDICARE, MEDICAID ==
[2019-08-20 13:52] LABS: CALCIUM 9.5 mg/dL (8.5-10.3); CREATININE 0.9 mg/dL (0.4-1.0)
[2019-08-20 14:10] LABS: HB2 TOTAL 13.1 g/dL; HEMOGLOBIN A1C 0.66 g/dL; HEMOGLOBIN A1C % 6.8 % (4.6-6.2)
== END 2019-08-20 23:59 | disposition home or self-care (01) ==
LOC: LAB.N 08:00
PROVIDERS: ATTEND Physician Assistant Medical
DX: E11.43 Type 2 diabetes mellitus with diabetic autonomic (poly)neuropathy (principal)
CPT/HCPCS: 36415; 80048; 83036

== ENCOUNTER 2019-09-16 09:00 | Outpatient (CLI) | payer MEDICARE, MEDICAID ==
[2019-09-16 18:31] LABS: BASOPHILS % (AUTO) 0.7 %; EOSINOPHILS # (AUTO) 0.1 10^3/uL (0.0-0.7); EOSINOPHILS % (AUTO) 1.7 %; HGB - HEMOGLOBIN 12.8 g/dL (12.0-16.0); LYMPHOCYTES # (AUTO) 1.4 10^3/uL (1.5-3.5); LYMPHOCYTES % (AUTO) 24.3 %; MEAN CORPUSCULAR HEMOGLOBIN 28.4 pg (27.0-31.0); MEAN CORPUSCULAR VOLUME 94.5 fL (81.0-99.0); MEAN PLATELET VOLUME 9.8 fL (7.9-10.8); MONOCYTES # (AUTO) 0.4 10^3/uL (0.0-1.0); MONOCYTES % (AUTO) 7.4 %; NEUTROPHILS # (AUTO) 3.8 10^3/uL (1.5-6.6); NEUTROPHILS % (AUTO) 65.7 %; PLT - PLATELET COUNT 336 10^3/uL (130-450); RED BLOOD COUNT 4.51 10^6/uL (4.20-5.40); RED CELL DISTRIBUTION WIDTH 14.7 % (12.0-15.0); WHITE BLOOD COUNT 5.8 x10^3/uL (4.8-10.8)
[2019-09-16 18:39] LABS: CREATININE 0.9 mg/dL (0.4-1.0)
[2019-09-16 18:40] LABS: HB2 TOTAL 13.4 g/dL; HEMOGLOBIN A1C 0.64 g/dL; HEMOGLOBIN A1C % 6.5 % (4.6-6.2)
[2019-09-16 18:43] LABS: PT - PROTHROMBIN TIME 11.9 secs (9.9-12.6)
[2019-09-16 18:53] LABS: PARTIAL THROMBOPLASTIN TIME 36.6 secs (24.9-33.3)
== END 2019-09-16 23:59 | disposition home or self-care (01) ==
LOC: LAB.N 09:00
PROVIDERS: ATTEND Orthopaedic Surgery Orthopaedic Surgery of the Spine
DX: Z01.812 Encounter for preprocedural laboratory examination (principal); I63.9 Cerebral infarction, unspecified; Z79.01 Long term (current) use of anticoagulants; E11.9 Type 2 diabetes mellitus without complications
CPT/HCPCS: 36415; 80048; 83036; 85025; 85610; 85730

== ENCOUNTER 2019-10-17 09:46 | Outpatient (CLI) | payer MEDICARE, MEDICAID ==
[2019-10-17 10:29] VITALS: BP 112/70
--- NOTE | 2019-10-17 10:29 | SLEEP CARE CONSULTATION ---
Information from patient questionnaire entered by Tabitha Lawson. I have reviewed and concur with the information entered by Tabitha Lawson. This document represents the service I personally performed and the decisions made by me, Delaney Blanchard, RN, MSN, PATENT LITIGATION ASSOCIATE. History of Present Illness Previous diagnosis: Extremely Severe, Obstructive Sleep Apnea-Hypopnea Syndrome AHI: 138.5 Reason for follow up: first compliance after device update Equipment type: CPAP Equipment obtained from: [employer] Mask style: Full face (Air Fit) Mask brand: Resmed Backup mask available: Yes Last cushion change: none since set up in August with new CPAP. HPI additional information: Patient has an anterior cervical fushion / lumbar fushion planned to relieve back and neck pain and numbness tingling symptoms. She is aware to take her CPAP for use in recovery and for any overnight stay /sleep. She will be hospitalized for about 5 days and then in rehab. CPAP Compliance Data - Data Reviewed with Patient Average duration of nightly device use: 8.5 Compliance rate %: 93.3 Current pressure setting (cmH2O): 11 Humidity settin Heated hose settin Average residual AHI: 0.8 Average large leak: 44 min 29 sec Subjective Missed days of use due to: reports: other (short nights of use is when awake with pain ) Patient concerns: denies: aerophagia, mask discomfort, air blowing in eyes, mask leak noise, condensation in mask/hose, nasal congestion, dry mouth, nose, throat, epistaxis Observed to snore while using device: No (sleeps alone, not waking to own snoring ) Current pressure setting perceived as: comfortable On therapy, patient: reports: sleeping better, awakening more refreshed, being more awake and alert during the day, more rested overall. denies: drowsiness while driving (transit or caregiver drives) Initial [place] Sleepiness Scale score: 6 Current [place] Sleepiness Scale score: 8 Allergies and Home Medications Known drug allergies: Yes (vancomycin ) Home medication list reviewed: Yes (no changes since last visit except oxycodone 5mg every 12 hours prn) Review of Systems Review of systems same as previous: No (Increase in back and neck pain with numbness and tingling left hand) Physical Exam Blood Pressure: 112/70 Cuff size: long Heart Rate: 92 O2 Saturation: 97 Height: 5 ft 4 in Weight: 262 lb 4.8 oz Weight change since last visit: lost 3 pounds Body Mass Index: 45.0 BMI Classification: Obesity Class 3 Impression and Plan 1. Obstructive Sleep Apnea-Hypopnea Syndrome, extremely severe, with good treatment compliance and excellent apnea control with new device. She is pleased with the quietness of new CPAP. On CPAP therapy, the patient has better sleep quality and is more rested overall. Patient advised if any concerns about her treatment during recovery from back surgery to contact this office. If any equipment concerns, she is to contact the [facility]. She plans on losing about 10 more pounds which should not affect her CPAP pressure requirements. I explained if she loses significant weight, her CPAP pressure requirements may reduce. Symptoms to report discussed to adjust pressure. She prefers a Res Med Air Fit mask then one given at set up so mask specific prescription written. I also requested updating cushions to resolve mask leaks as patient has not been able to update mask cushion since received in August. Patient's apnea severity and rationale for treatment to reduce apnea, improve sleep quality and reduce cardiovascular and cerebrovascular events was reviewed. I also reviewed the benefit of consistent device use of CPAP for cerebrovascular disease, diabetes, depression/anxiety. * Continue CPAP pressure at 11 cmH2O * mask specific prescription made * Update supplies * Notify me if snoring with mask or feeling that the pressure is too much or too little * Continue to lose weight * Call this office if any problems using CPAP * Return for follow up in 1 year , or sooner if concerns arise Time Spent with Patient (minutes): 25
== END 2019-10-17 09:47 | disposition home or self-care (01) ==
LOC: SC 09:46
PROVIDERS: ATTEND Nurse Practitioner Family
DX: G47.33 Obstructive sleep apnea (adult) (pediatric) (principal); E66.9 Obesity, unspecified; Z68.42 Body mass index [BMI] 45.0-49.9, adult
CPT/HCPCS: 99214; G0463; 99212

== ENCOUNTER 2020-04-20 08:00 | Outpatient (CLI) | payer MEDICARE, MEDICAID ==
[2020-04-20 12:46] LABS: HEMOGLOBIN A1C 0.46 g/dL; HEMOGLOBIN A1C % 5.7 % (4.6-6.2)
== END 2020-04-20 23:59 | disposition home or self-care (01) ==
LOC: LAB.WCP 08:00
PROVIDERS: ATTEND Family Medicine
DX: E11.43 Type 2 diabetes mellitus with diabetic autonomic (poly)neuropathy (principal)
CPT/HCPCS: 36415; 83036

== ENCOUNTER 2020-07-24 08:00 | Outpatient (CLI) | payer MEDICARE, MEDICAID ==
[2020-07-24 18:22] LABS: BASOPHILS % (AUTO) 0.7 %; EOSINOPHILS # (AUTO) 0.1 10^3/uL (0.0-0.7); EOSINOPHILS % (AUTO) 2.1 %; HGB - HEMOGLOBIN 11.7 g/dL (12.0-16.0); LYMPHOCYTES # (AUTO) 1.5 10^3/uL (1.5-3.5); LYMPHOCYTES % (AUTO) 25.9 %; MEAN CORPUSCULAR HEMOGLOBIN 26.3 pg (27.0-31.0); MEAN CORPUSCULAR HGB CONC 29.8 g/dL (32.0-36.0); MEAN CORPUSCULAR VOLUME 88.1 fL (81.0-99.0); MEAN PLATELET VOLUME 9.7 fL (7.9-10.8); MONOCYTES # (AUTO) 0.6 10^3/uL (0.0-1.0); MONOCYTES % (AUTO) 9.9 %; NEUTROPHILS # (AUTO) 3.4 10^3/uL (1.5-6.6); PLT - PLATELET COUNT 400 10^3/uL (130-450); RED BLOOD COUNT 4.45 10^6/uL (4.20-5.40); WHITE BLOOD COUNT 5.6 x10^3/uL (4.8-10.8)
[2020-07-24 18:23] LABS: BILIRUBIN,URINE NEGATIVE (NEGATIVE); GLUCOSE, URINE (UA) NEGATIVE (NEGATIVE); KETONES,URINE (UA) NEGATIVE (NEGATIVE); LEUKOCYTE ESTERASE, URINE NEGATIVE (NEGATIVE); NITRITE,URINE NEGATIVE (NEGATIVE); OCCULT BLOOD,URINE NEGATIVE (NEGATIVE); PH,URINE 5.5 PH (5.0-7.5); PROTEIN,URINE NEGATIVE (NEGATIVE); UROBILINOGEN,URINE 0.2 (NORMAL) E.U./dL (NORMAL)
[2020-07-24 18:42] LABS: AMORPHOUS SEDIMENT,UR Marked /LPF; BACTERIA,URINE None Seen /HPF (None Seen); CLARITY,URINE CLOUDY (CLEAR); RBC,URINE None Seen /HPF (0-5); SQUAMOUS EPITHELIAL CELL,UR NONE SEEN (<= Few)
[2020-07-24 19:01] LABS: ALBUMIN 3.5 g/dL (3.2-5.5); ALBUMIN/GLOBULIN RATIO 0.8 (1.0-2.2); BILIRUBIN,TOTAL 0.4 mg/dL (0.2-1.0); CALCIUM 9.8 mg/dL (8.5-10.3)
== END 2020-07-24 23:59 | disposition home or self-care (01) ==
LOC: LAB.WCP 08:00
PROVIDERS: ATTEND Family Medicine
DX: R10.9 Unspecified abdominal pain (principal)
CPT/HCPCS: 36415; 80053; 81001; 82150; 83690; 85025; 87086

== ENCOUNTER 2020-08-09 08:01 | Outpatient (CLI) | payer MEDICARE, MEDICAID ==
--- NOTE | 2020-08-09 11:47 | Ultrasound Report ---
PROCEDURE: Abdomen Complete INDICATIONS: ABDOMINAL PAIN TECHNIQUE: Real-time scanning was performed of the abdominal and retroperitoneal organs, with image documentatio n. COMPARISON: CT abdomen and pelvis dated 07/21/2016. FINDINGS: Liver: The liver demonstrates diffusely increased echotexture without focal abnormalities which is c onsistent with chronic hepatocellular disease/hepatic steatosis. Gallbladder: Status post cholecystectomy. Biliary ducts: Intrahepatic bile ducts are non-dilated. Extrahepatic bile duct caliber measures 5 m m. Normal is 6-7 mm or less in diameter, or 10 mm or less post-cholecystectomy. Pancreas: Visualized portions of the pancreas are sonographically normal. Spleen: Spleen is normal in size and homogeneous in echotexture. Kidneys: Kidneys are normal in size and echotexture. Right kidney measures 10.5 cm long; left kidne y measures 11.7 cm long. No hydronephrosis or nephrolithiasis. No solid masses. Aorta: Visualized aorta is normal in caliber at less than 3 cm. Iliacs: Not visualized secondary to bowel gas IVC: Intrahepatic inferior vena cava is patent. Miscellaneous: No free abdominal fluid. Redemonstration of known right adrenal adenoma measuring 3. 8 x 3.1 x 2.6 cm. Over the area of pain in the periumbilical region, no definite abnormalities were s een. Additionally, this region was difficult to image secondary to shadowing bowel gas. Based on prev ious imaging, there appears to be a large ventral hernia containing colon and small bowel. Reported v entral hernia repairs dated 2010. IMPRESSION: 1. Diffuse hepatic steatosis. 2. Status post cholecystectomy. 3. Right adrenal adenoma redemonstrated. 4. No focal abnormalities identified in the area of pain in the umbilical region; however, suspect ar ea of pain is possibly related to large bowel containing ventral hernia seen on comparison CT dated 1 and reported ventral hernia repair in 2010. Recommend further evaluation with CT of the abd omen and pelvis. Reviewed by: Richmond Stanton MD on 08/09/2020 10:[address] [facility] Approved by: Richmond Stanton MD on 08/09/2020 10:[address] [facility] Station ID: [id number]
== END 2020-08-09 08:02 | disposition home or self-care (01) ==
LOC: DI 08:01
PROVIDERS: ATTEND Family Medicine
DX: R10.9 Unspecified abdominal pain (principal); K76.0 Fatty (change of) liver, not elsewhere classified; Z90.49 Acquired absence of other specified parts of digestive tract; D35.01 Benign neoplasm of right adrenal gland
CPT/HCPCS: 76700

== ENCOUNTER 2020-10-21 10:46 | Outpatient (CLI) | payer MEDICARE, MEDICAID ==
--- NOTE | 2020-10-21 11:53 | SLEEP CARE CONSULTATION ---
Information from patient questionnaire entered by Tabitha Lawson. I have reviewed and concur with the information entered by Tabitha Lawson. This document represents the service I personally performed and the decisions made by , Sheri Flores ARNP. History of Present Illness Service Date and Time: 10/21/2020 1046 Previous diagnosis: Extremely Severe, Obstructive Sleep Apnea-Hypopnea Syndrome AHI: 138.5 (in 2006) Reason for follow up: annual (last seen 10/2019) Equipment type: CPAP Equipment obtained from: [facility] (getting supplies as needed) Mask style: Full face Mask brand: Resmed (Air Fit) Backup mask available: Yes (old mask) Last cushion change: 3 weeks ago Prior sleep studies: Yes Year and Where: 2006 - [facility] Type of Sleep Study: Polysomnography HPI additional information: BRUNA FERRIS was diagnosed to have extremely severe, AHI 138.5, obstructive sleep apnea-hypopnea syndrome and returned today for CPAP therapy annual follow- up. CPAP Compliance Data - Data Reviewed with Patient Average duration of nightly device use: 6 hr 33 min Compliance rate %: 75 (180 days) Current pressure setting (cmH2O): 11 Humidity settin Heated hose settin Average residual AHI: 1.6 Average large leak: 19 min 37 sec Subjective Missed days of use due to: reports: mask issues (now resolved), illness (brandon lesli), other (power outages) Patient concerns: denies: aerophagia, mask discomfort (she changed to small size from medium and has a better fit), air blowing in eyes, mask leak noise, condensation in mask/hose, nasal congestion, dry mouth, nose, throat, epistaxis, other Observed to snore while using device: No (as far as she knows, she lives alone) Current pressure setting perceived as: comfortable On therapy, patient: reports: sleeping better, awakening more refreshed, being more awake and alert during the day, more rested overall. denies: drowsiness while driving Initial [place] Sleepiness Scale score: 6 (in 2012) Current [place] Sleepiness Scale score: 6 Allergies and Home Medications Drug allergies reviewed: Yes (vancomycin) Home medication list reviewed: Yes (no changes) Review of Systems Review of systems same as previous: No (back surgeries November to april due to complications; now has RLS) Physical Exam Heart Rate: 85 O2 Saturation: 100 Height: 5 ft 4 in Weight: 242 lb Weight change since last visit: 27 pound loss Body Mass Index: 41.5 BMI Classification: Morbidly Obese Impression and Plan 1. Obstructive Sleep Apnea-Hypopnea Syndrome, extremely severe, with fair treatment compliance and good apnea control. On CPAP therapy, the patient has better sleep quality and is more rested overall. The patient has lost weight this last year. Currently patients BMI is 41.5. I encouraged patient to continue to try to lose weight as this will be beneficial for her overall health. Obesity increases the risk of apnea, CPAP pressure requirements and overall health risks especially cardiovascular and diabetes. Thus patient is advised to continue to lose weight. Patient's apnea severity and rationale for treatment to reduce apnea, improve sleep quality and reduce cardiovascular and cerebrovascular events was reviewed. I also reviewed the benefit of consistent device use of CPAP for cerebrovascular disease, diabetes, and depression. * Continue autoCPAP pressure at 11 cmH2O * Notify me if snoring with mask or feeling that the pressure is too much or too little * Continue to try to lose weight * Call this office if any problems using CPAP * Return for follow up in 1 year, or sooner if concerns arise Counseling Topics: Spare mask, Weight loss health impact Visit Type: In Office Time Spent with Patient (minutes): 21 Provider Statement: I spent 100% of the Face to Face Visit with the patient with greater than 50% spent counseling the patient and coordination of care.
== END 2020-10-21 10:47 | disposition home or self-care (01) ==
LOC: SC 10:46
PROVIDERS: ATTEND Nurse Practitioner Family
DX: G47.33 Obstructive sleep apnea (adult) (pediatric) (principal); E66.01 Morbid (severe) obesity due to excess calories; Z68.41 Body mass index [BMI] 40.0-44.9, adult
CPT/HCPCS: 99213; G0463; 99212

== ENCOUNTER 2020-11-25 09:17 | Outpatient (CLI) | payer MEDICARE, MEDICAID ==
--- NOTE | 2020-11-26 10:14 | Mammography Report ---
BILATERAL DIGITAL SCREENING MAMMOGRAM: 11/25/2020 CLINICAL: Routine screening. Comparison is made to exams dated: 11/19/2018 mammogram, 12/18/2014 mammogram, 08/06/2013 mammogram, an d 07/19/2013 mammogram - [facility]. The tissue of both breasts is predominantly f atty. There is a 0.7 cm oval mass in the left breast at 4 o'clock anterior depth. This is more prominent. No other significant masses, calcifications, or other findings are seen in either breast. IMPRESSION: INCOMPLETE: NEEDS ADDITIONAL IMAGING EVALUATION The 0.7 cm oval mass in the left breast resembles a cyst and is indeterminate. Additional views with possible ultrasound are recommended. This exam was interpreted at Station ID: [id number]. NOTE: For mammograms, a report in lay terms will be sent to the patient. Approximately 15% of breast malignancies will not be visualized mammographically. In the management of a palpable breast mass, a negative mammogram must not discourage biopsy of a clinically suspicious lesion. Electronically Signed By: Daniel Gomez M.D. slc/:11/25/2020 13:04:28 ACR BI-RADS Category 0: Incomplete 3340F PARENCHYMAL PATTERN: (F) - The breast(s) demonstrate(s) diffuse fatty replacement. BI-RADS CATEGORY: (0) - 0 Mammo and [place] [id number] Immediate follow-up LATERALITY: (B)
== END 2020-11-25 09:18 | disposition home or self-care (01) ==
LOC: DI.N 09:17
DX: Z12.31 Encounter for screening mammogram for malignant neoplasm of breast (principal); N63.23 Unspecified lump in the left breast, lower outer quadrant

== ENCOUNTER 2020-12-15 10:11 | Outpatient (CLI) | payer MEDICARE, MEDICAID ==
--- NOTE | 2020-12-16 15:06 | Mammography Report ---
UNILATERAL LEFT DIGITAL DIAGNOSTIC MAMMOGRAM 3D/2D: 12/15/2020 CLINICAL: Patient returns today to evaluate a focal asymmetry in the left breast. Comparison is made to exams dated: 11/25/2020 mammogram, 11/19/2018 mammogram, 12/18/2014 mammogram, mammogram, and 07/19/2013 mammogram - [facility]. The tissue of left breas t is predominantly fatty. There is a 0.7 cm oval mass in the left breast at 4 o'clock anterior depth. This is seen in addition al views. No other significant masses or calcifications are seen in the breast. IMPRESSION: INCOMPLETE: NEEDS ADDITIONAL IMAGING EVALUATION The 0.7 cm oval mass in the left breast most likely is a cyst or a lymph node but remains indetermin ate. An ultrasound is recommended. This was performed immediately following this exam. This exam was interpreted at Station ID: [id number]. NOTE: For mammograms, a report in lay terms will be sent to the patient. Approximately 15% of breast malignancies will not be visualized mammographically. In the management of a palpable breast mass, a negative mammogram must not discourage biopsy of a clinically suspicious lesion. Electronically Signed By: Libertad jackson/:12/15/2020 11:18:52 ACR BI-RADS Category 0: Incomplete 3340F PARENCHYMAL PATTERN: (F) - The breast(s) demonstrate(s) diffuse fatty replacement. BI-RADS CATEGORY: (0) - 0 Ultrasound [id number] Immediate follow-up LATERALITY: (B)
--- NOTE | 2020-12-16 15:07 | Ultrasound Report ---
LIMITED ULTRASOUND OF LEFT BREAST: 12/15/2020 CLINICAL: Patient returns for additional imaging over a suspected mass in the left breast. Comparison is made to exams dated: 12/15/2020 mammogram, 11/25/2020 mammogram, 11/19/2018 mammogram, mammogram, 08/06/2013 mammogram, and 07/19/2013 mammogram - [facility]. Color flow ultrasound of the left breast 4 o'clock region was performed. Loza scale images of the r eal-time examination were reviewed. There is a benign 0.7 cm x 0.5 cm x 0.2 cm oval cyst in the left breast at 4 o'clock anterior depth 4 cm from the nipple. This oval cyst is anechoic. This correlates with mammography findings. Color flow imaging demonstrates that there is no vascularity present. IMPRESSION: BENIGN There is no sonographic evidence of malignancy. The 0.7 cm oval cyst in the left breast corresponds to the mammogram finding, is consistent with a si mple cyst and is benign. Return to annual mammogram screening schedule is recommended. Findings and recommendations were conveyed to the patient at time of exam. This exam was interpreted at Station ID: [id number]. Electronically Signed By: Libertad jackson/:12/15/2020 12:11:34 Ultrasound BI-RADS: 2 Benign BI-RADS CATEGORY: (2) - 2 Mammogram [id number] return to screening LATERALITY: (B)
== END 2020-12-15 10:12 | disposition home or self-care (01) ==
LOC: DI 10:11
PROVIDERS: ATTEND Family Medicine
DX: R92.8 Other abnormal and inconclusive findings on diagnostic imaging of breast (principal); N60.02 Solitary cyst of left breast

== ENCOUNTER 2020-12-17 08:00 | Outpatient (CLI) | payer MEDICARE, MEDICAID ==
[2020-12-17 11:31] LABS: BASOPHILS # (AUTO) 0.1 10^3/uL (0.0-0.1); EOSINOPHILS # (AUTO) 0.2 10^3/uL (0.0-0.7); EOSINOPHILS % (AUTO) 2.5 %; HCT - HEMATOCRIT 39.4 % (37.0-47.0); LYMPHOCYTES # (AUTO) 1.8 10^3/uL (1.5-3.5); LYMPHOCYTES % (AUTO) 30.8 %; MEAN CORPUSCULAR HEMOGLOBIN 26.3 pg (27.0-31.0); MEAN CORPUSCULAR HGB CONC 30.5 g/dL (32.0-36.0); MEAN CORPUSCULAR VOLUME 86.2 fL (81.0-99.0); MEAN PLATELET VOLUME 9.6 fL (7.9-10.8); MONOCYTES # (AUTO) 0.6 10^3/uL (0.0-1.0); MONOCYTES % (AUTO) 10.8 %; NEUTROPHILS # (AUTO) 3.2 10^3/uL (1.5-6.6); NEUTROPHILS % (AUTO) 54.7 %; PLT - PLATELET COUNT 300 10^3/uL (130-450); RED BLOOD COUNT 4.57 10^6/uL (4.20-5.40); RED CELL DISTRIBUTION WIDTH 16.8 % (12.0-15.0); WHITE BLOOD COUNT 5.9 x10^3/uL (4.8-10.8)
[2020-12-17 12:16] LABS: ESTIMATED AVERAGE GLUCOSE 126 mg/dL (70-100)
[2020-12-17 12:34] LABS: ALBUMIN 3.5 g/dL (3.2-5.5); ALBUMIN/GLOBULIN RATIO 0.9 (1.0-2.2); ALKALINE PHOSPHATASE 74 IU/L (42-121); ALT ALANINE AMINOTRANSFERASE 14 IU/L (10-60); AST ASPARTATE AMINOTRANSFERASE 19 IU/L (10-42); BILIRUBIN,TOTAL 0.4 mg/dL (0.2-1.0); BUN - BLOOD UREA NITROGEN 34 mg/dL (6-20); CALCIUM 9.9 mg/dL (8.5-10.3); CARBON DIOXIDE - CO2 24 mmol/L (21-32); CHLORIDE 105 mmol/L (101-111); CHOL/HDL RATIO 2.7 (<4.4); CHOLESTEROL 170 mg/dL; CREATININE 1.1 mg/dL (0.4-1.0); GFR - MDRD 49 (>89); GLUCOSE 120 mg/dL (70-100); HDL CHOLESTEROL 63 mg/dL; LDL CHOLESTEROL,CALCULATED 81 mg/dL; LDL/HDL RATIO 1.3 (<4.4); POTASSIUM 4.3 mmol/L (3.5-5.0); SODIUM 138 mmol/L (135-145); TOTAL PROTEIN 7.5 g/dL (6.7-8.2); TRIGLYCERIDES 128 mg/dL; VLDL CHOLESTEROL 26 mg/dL
[2020-12-17 12:42] LABS: THYROID STIMULATING HORMONE 1.86 uIU/mL (0.34-5.60)
[2020-12-17 18:59] LABS: CREATININE,URINE 102.9 mg/dL; MICROALBUM/CREATININE RATIO,UR 4.9 ug/mg (<30.0); MICROALBUMIN,URINE 0.5 mg/dL (0-300.0)
== END 2020-12-17 23:59 | disposition home or self-care (01) ==
LOC: LAB.WCP 08:00
PROVIDERS: ATTEND Family Medicine
DX: E11.43 Type 2 diabetes mellitus with diabetic autonomic (poly)neuropathy (principal)
CPT/HCPCS: 36415; 80053; 80061; 82043; 82570; 82607; 83036; 83721; 84443; 85025

== ENCOUNTER 2021-01-05 | Outpatient (CLI) | payer MEDICARE, MEDICAID | END 2021-01-05 23:15 | disposition short-term general hospital (02) | CPT/HCPCS: A0425; A0428 ==

== ENCOUNTER 2021-01-05 | Outpatient (CLI) | payer MEDICARE, MEDICAID | END 2021-01-05 16:58 | disposition critical access hospital (66) | CPT/HCPCS: A0425; A0429 ==

== ENCOUNTER 2021-01-05 17:18 | Emergency (ER) | payer MEDICARE, MEDICAID ==
[2021-01-05] MEDS ORDERED: SODIUM CHLORIDE 0.9% 1,000 ML IV STA (17:36)
[2021-01-05 17:51] LABS: BASOPHILS # (AUTO) 0.1 10^3/uL (0.0-0.1); BASOPHILS % (AUTO) 0.7 %; EOSINOPHILS # (AUTO) 0.1 10^3/uL (0.0-0.7); EOSINOPHILS % (AUTO) 1.6 %; HCT - HEMATOCRIT 40.3 % (37.0-47.0); HGB - HEMOGLOBIN 12.1 g/dL (12.0-16.0); LYMPHOCYTES # (AUTO) 1.7 10^3/uL (1.5-3.5); LYMPHOCYTES % (AUTO) 22.2 %; MEAN CORPUSCULAR HEMOGLOBIN 25.9 pg (27.0-31.0); MEAN CORPUSCULAR VOLUME 86.3 fL (81.0-99.0); MONOCYTES # (AUTO) 0.8 10^3/uL (0.0-1.0); MONOCYTES % (AUTO) 10.4 %; NEUTROPHILS % (AUTO) 64.7 %; PLT - PLATELET COUNT 302 10^3/uL (130-450); RED BLOOD COUNT 4.67 10^6/uL (4.20-5.40); RED CELL DISTRIBUTION WIDTH 16.9 % (12.0-15.0); WHITE BLOOD COUNT 7.7 x10^3/uL (4.8-10.8)
[2021-01-05] MEDS ORDERED: IOPAMIDOL-300 100 ML VIAL ONE (17:56)
--- NOTE | 2021-01-05 17:56 | ED Physician Documentation ---
History of Present Illness - Stated complaint Stated Complaint: AMS - Chief complaint Chief Complaint: Neuro - History obtained from History obtained from: Patient, EMS - Additonal information Additional information: Patient is brought to the emergency department by EMS for chief complaint of feeling dizzy and off balance this morning around 4:00. Patient got her first Covid shot yesterday afternoon and felt fine when she went to bed last night. She slept well until waking up at 4 to use the restroom. When she got up, she states her head felt dizzy and her legs just felt weak. Patient has a history of a fairly significant left-sided CVA in 2010 and has had right-sided deficits since. She also had some Aphasia at that time. Patient states that she has some chronic right-sided weakness left over from that, but that her speech has been fairly good since. She states that over the years she has had a couple of episodes of recurrence of the symptoms to a lesser degree, but they resolve on their own. The patient's caregiver came to her house at 8:00 and patient related the symptoms. Caregiver told the patient to go back to bed and try to get a little more rest, as she suspected that the patient was feeling unwell secondary to the shot. However, on the patient woke up several hours later, she had a bad headache and her symptoms had not improved. Patient had also been stuttering over the course of the day, which is not her usual speech pattern. Patient denies fevers or chills. She has not been ill with anything. No visual changes. No nausea or vomiting or abdominal pain. No cough or shortness of breath. Review of Systems Ten Systems: 10 systems reviewed and negative Constitutional: reports: Reviewed and negative Eyes: reports: Reviewed and negative Ears: reports: Reviewed and negative Nose: reports: Reviewed and negative Throat: reports: Reviewed and negative Cardiac: reports: Reviewed and negative Respiratory: reports: Reviewed and negative GI: reports: Reviewed and negative : reports: Reviewed and negative Skin: reports: Reviewed and negative Musculoskeletal: reports: Reviewed and negative Neurologic: reports: Generalized weakness, Focal weakness, Difficulty speaking, Headache. 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 HEENT: Other Psych: Depression Musculoskeletal: None Derm: None - Past Surgical History Past Surgical History: Yes General: Cholecystectomy, Appendectomy, Bowel surgery, Hiatal hernia repair, Colonoscopy Ortho: Other /CURTAIN SUPERVISOR: section HEENT: Tonsil/Adenoidectomy - Present Medications Home Medications: Ambulatory Orders Medication Instructions Recorded Confirmed Fenofibrate [Lipofen] 54 mg PO HS 02/18/13 01/14/18 Calcium Carb/Vit D3/Minerals 1 each PO DAILY 12/26/13 01/14/18 [Calcium 1,200 mg Tablet Chew] Cholecalciferol (Vitamin D3) 2,000 unit PO DAILY 12/26/13 01/14/18 [Vitamin D] Clopidogrel [Plavix] 75 mg PO DAILY 01/06/14 01/14/18 Sertraline HCl [Zoloft] 100 mg PO QDBREAKFAST 12/03/14 01/14/18 Acetaminophen [Tylenol Extra 1,000 mg PO DAILY PRN 12/12/14 01/14/18 Strength] Vitamin B Complex 1,000 mg PO DAILY 01/04/15 01/14/18 Topiramate [Topiramate ER] 50 mg PO BID 07/27/15 01/14/18 Trazodone HCl 100 mg PO QPM 01/23/16 01/14/18 Albuterol Sulfate [Proventil Hfa 1 - 2 puffs IH Q4H PRN #1 02/22/16 01/14/18 Inhaler] hfa.aer.ad Bupropion HCl [Wellbutrin Sr] 300 mg PO DAILY 03/22/16 01/14/18 Gabapentin 600 mg PO TID 03/22/16 01/14/18 metFORMIN [Glucophage] 500 mg PO BID 03/22/16 01/14/18 Magnesium Hydroxide [Milk of 400 mg PO DAILY PRN #240 ml 07/29/16 01/14/18 Magnesia] HYDROcod/ACETAM 5/325 [[place] 5/325] 1 - 2 ea PO Q6H PRN #15 tablet 10/22/16 01/14/18 Amitriptyline [Elavil] 25 mg QPM 12/08/16 01/14/18 Fenofibrate 54 mg PO DAILY 02/14/17 01/14/18 Lidocaine Patch 5% [Lidoderm Patch] 1 each TOP DAILY PRN #10 patch 02/14/17 01/14/18 Hydrocodone/Acetaminophen [Vicodin 1 each PO Q6HR PRN #12 tablet 03/26/17 01/14/18 5-300 mg Tablet] Nitrofurantoin Monohyd/M-Cryst 100 mg PO BID #10 capsule 11/16/17 01/14/18 [Macrobid 100 mg Capsule] Sulfamethox/Trimeth 800/160 1 each PO BID #14 tablet 01/14/18 [Bactrim Ds 800/160] cephALEXin [Keflex] 500 mg PO QID 01/14/18 01/14/18 Clindamycin HCl [Clindamycin 300MG 300 mg PO Q6H 7 Days capsule 01/24/18 CAP] Amox/Clav 875/125 [Augmentin] 1 each PO Q12H #19 tablet 01/30/18 - Allergies Allergies/Adverse Reactions: Allergies Allergy/AdvReac Type Severity Reaction Status Date / Time vancomycin Allergy Hives Verified 01/05/21 17:31 - Social History Does the pt smoke?: No Smoking Status: Never smoker Does the pt drink ETOH?: No Does the pt have substance abuse?: No - Immunizations Immunizations are current?: Yes Immunizations: TDAP >10years/unknown - POLST Patient has POLST: Yes POLST Status: DNR PD ED PE NORMAL - Vitals Vital signs reviewed: Yes - General General: Alert and oriented X 3, No acute distress, Well developed/nourished - HEENT HEENT: Atraumatic, PERRL, EOMI, Moist mucous membranes - Neck Neck: Supple, no meningeal sign - Cardiac Cardiac: RRR, No murmur, Strong equal pulses - Respiratory Respiratory: No respiratory distress, Clear bilaterally - Abdomen Abdomen: Soft, Non tender, Non distended - Derm Derm: Normal color, Warm and dry, No rash - Extremities Extremities: No deformity, No edema, No calf tenderness / cord - Neuro Neuro: Alert and oriented X 3, Other (Stuttering speech) - Psych Psych: Normal mood, Normal affect PD ED PE EXPANDED - Free text exam Free text exam: Patient has stuttering speech. She has 5+ strength in Left upper and lower extremities compared with 4+ strength in right upper and lower. Sensation intact throughout face and all extremities. Face is symmetrical. Results - Vitals Vitals: Vital Signs - 24 hr 01/05/21 01/05/21 17:24 17:36 Temperature 36.8 C Heart Rate 95 92 Respiratory 20 16 Rate Blood Pressure 136/77 H 151/75 H O2 Saturation 98 94 Oxygen O2 Source [With Activity] Nasal cannula O2 Source [Without Activity] Room air O2 Source Room air - Labs Labs: Laboratory Tests 01/05/21 01/05/21 01/05/21 17:46 17:46 17:46 WBC 7.7 RBC 4.67 Hgb 12.1 Hct 40.3 MCV 86.3 MCH 25.9 L MCHC 30.0 L RDW 16.9 H Plt Count 302 MPV 9.0 Neut # (Auto) 5.0 Lymph # (Auto) 1.7 [place] # (Auto) 0.8 Eos # (Auto) 0.1 Baso # (Auto) 0.1 Absolute Nucleated RBC 0.00 Nucleated RBC % 0.0 Sodium 136 Potassium 4.7 Chloride 104 Carbon Dioxide 24 Anion Gap 8.0 BUN 33 H Creatinine 1.2 H Estimated GFR (MDRD) 45 L Glucose 98 Calcium 9.8 Total Bilirubin 0.4 AST 19 ALT 17 Alkaline Phosphatase 75 Troponin I High Sens 4.6 Total Protein 7.8 Albumin 3.6 Globulin 4.2 Albumin/Globulin Ratio 0.9 L Lipase 45 PD MEDICAL DECISION MAKING - ED course Complexity details: reviewed old records, reviewed results, considered differential, d/w patient ED course: The patient was found to have an NIH stroke scale score of 4 upon arrival in the emergency department. She was worked up with laboratory studies, EKG, and CT head without contrast and CTA of head and neck. She was signed out to Dr. Goins at change of shift, pending results of work-up and final disposition.
[2021-01-05 18:06] LABS: ALBUMIN 3.6 g/dL (3.2-5.5); ALBUMIN/GLOBULIN RATIO 0.9 (1.0-2.2); BILIRUBIN,TOTAL 0.4 mg/dL (0.2-1.0); CALCIUM 9.8 mg/dL (8.5-10.3); CREATININE 1.2 mg/dL (0.4-1.0); POTASSIUM 4.7 mmol/L (3.5-5.0); TOTAL PROTEIN 7.8 g/dL (6.7-8.2)
[2021-01-05] MEDS ORDERED: SUMAtriptan 6 MG/0.5 ML VIAL SUBQ STA (18:19)
--- NOTE | 2021-01-05 20:15 | CT Report ---
PROCEDURE: ANGIO HEAD W/WO INDICATIONS: L sided facial droop CONTRAST: IV CONTRAST: Isovue 300 ml: 80 PO CONTRAST: *NO PO CONTRAST TECHNIQUE: Precontrast 4.5 mm thick angled axial sections acquired from the foramen magnum to the vertex. Afte r the administration of intravenous contrast, 1 mm thick sections acquired through the [place] [facility] [place] is. Postcontrast 4.5 mm thick sections then re-acquired from the foramen magnum to the vertex. 3-di mensional neajmml-tjmrqyeuf-nhmohwbsly (MIP) and/or volume rendering reformats were acquired of the c entral intracranial vasculature. For radiation dose reduction, the following was used: automated ex posure control, adjustment of mA and/or kV according to patient size. COMPARISON: CT of the head dated 12/14/2017. FINDINGS: Image quality: Excellent. Anterior circulation: Intracranial internal carotid arteries demonstrate atherosclerotic calcificati ons with moderate stenosis on the right and mild stenosis on the left with no thrombus. The flow wit hin the paired anterior cerebral arteries is normal and symmetric. The flow within the middle cerebr al arteries is normal and symmetric. The anterior communicating artery is seen. No aneurysms are se en. Posterior circulation: Visualized portions of the vertebral arteries demonstrate normal caliber, and join to form a normal appearing basilar artery. The left vertebral artery is not seen, likely due t o being nondominant. No aneurysm is seen in the posterior circulation. CSF spaces: Ventricles are no rmal in size and shape. Basal cisterns are patent. No extra-axial fluid collections. Brain: Subcortical and periventricular white matter hypodensities are consistent with microvascular i schemic disease. A left frontoparietal white matter hypodensity involving the insula is consistent wi th a remote infarction and is unchanged compared to a prior CT in 2018. White matter hypodensity in t he right insula is also consistent with a remote infarction and is unchanged compared to a prior CT i n 2018. No evidence of acute infarction. No midline shift. No intracranial bleeds or masses. Loza-w gabriel matter interface appears intact. Skull and face: Hyperostosis frontalis is noted, otherwise the calvarium and facial bones appear inta ct, without suspicious lesions. Sinuses: Visualized sinuses and mastoids are clear. IMPRESSION: 1. No acute infarction identified by CT. 2. Remote chronic infarctions in the bilateral insula and left frontoparietal white matter. 3. CTA demonstrates atherosclerotic disease with moderate stenosis in the right intracranial internal carotid arteries and mild stenosis in the left intracranial internal carotid arteries. 4. No aneurysm or thrombus in the intracranial arteries. Reviewed by: Sujit Wooten on 01/05/2021 8:13 PM PDT Approved by: Sujit Wooten on 01/05/2021 8:13 PM PDT Station ID: [id number]
--- NOTE | 2021-01-05 21:07 | ED Physician Documentation ---
ED Addendum - Addendum Addendum: 01/05/21 21:04 Patient endorsed to me by Dr. Nash awaiting CT. CT does not show any acute stroke however there is moderate stenosis of the right ICA and mild stenosis of the left ICA as well as a chronic infarct. Upon my reexamination she has persistent aphasia and right-sided weakness in the upper and lower extremity. She states that occasionally she in the past has had migraines that correlate with strokelike symptoms however she believes this is different because she has not had symptoms like this since her 2019 stroke. In addition, she developed aphasia and dizziness/ataxia prior to the symptoms of headache, photophobia and nausea, which is not consistent with her prior migraines. I discussed that the next step is to have an MRI and we do not have that capability here. After discussion of benefits of outpatient versus inpatient workup she is requesting admission and so I will attempt to coordinate transfer to [facility] where her neurologist Dr. Reji Morocho works. 01/05/21 21:10 01/05/21 21:14 d/w Dr. Lowery, neurology at [facility] who agrees patient can be admitted for inpatient MRI and further monitoring. 01/06/21 00:32 Impression 1. aphasia 2. right sided weakness 3. ataxia 4. headache
[2021-01-05] MEDS ORDERED: ATORVASTATIN 40 MG TABLET PO STA (21:18)
[2021-01-05] MEDS ORDERED: lisinopriL 5 MG TABLET PO STA (21:19)
[2021-01-05 22:15] LABS: B. PARAPERTUSSIS- RESP PCR PAN NOT DETECTED; B. PERTUSSIS- RESP PCR PANEL NOT DETECTED; C. PNEUMONIAE- RESP PCR PANEL NOT DETECTED; CORONAVIRUS 229E-RESP PCR NOT DETECTED; CORONAVIRUS HKU1-RESP PCR NOT DETECTED; CORONAVIRUS NL63-RESP PCR NOT DETECTED; CORONAVIRUS OC43-RESP PCR NOT DETECTED; HUMAN METAPNEUMOVIRUS NOT DETECTED; INFLUENZA A- RESP PCR PANEL NOT DETECTED; INFLUENZA B - RESP PCR PANEL NOT DETECTED; M. PNEUMONIAE- RESP PCR PANEL NOT DETECTED; PARAINFLUENZA VIRUS 1 NOT DETECTED; PARAINFLUENZA VIRUS 2 NOT DETECTED; PARAINFLUENZA VIRUS 3 NOT DETECTED; PARAINFLUENZA VIRUS 4 NOT DETECTED; RHINOVIRUS/ENTEROVIRUS NOT DETECTED; RSV- RESP PCR PANEL NOT DETECTED; SARS-CoV-2 -RESP PCR PANEL NOT DETECTED
[2021-01-05] MEDS ORDERED: IOPAMIDOL-300 100 ML VIAL IVP ONE (22:37)
[2021-01-05 23:32] VITALS: BP 160/77
== END 2021-01-05 23:25 | disposition short-term general hospital (02) ==
LOC: EDUNIT# → SUPCPDRO 17:18 → ED 17:18
DX: R13.0 Aphagia (principal); R53.1 Weakness; R27.0 Ataxia, unspecified; R51.9 Headache, unspecified; E11.9 Type 2 diabetes mellitus without complications; I48.91 Unspecified atrial fibrillation; Z79.84 Long term (current) use of oral hypoglycemic drugs; Z66 Do not resuscitate; Z86.73 Personal history of transient ischemic attack (TIA), and cerebral infarction without residual deficits; Z20.822 Contact with and (suspected) exposure to COVID-19
CPT/HCPCS: 36415; 70496; 80053; 83690; 84484; 85025; 87631; 93005; 96360; 96361; 96372; 99283; 99285; A9270; Q9967; 0202U

== ENCOUNTER 2021-02-05 14:03 | Outpatient (CLI) | payer MEDICARE, MEDICAID ==
--- NOTE | 2021-02-05 14:04 | XRAY Report ---
PROCEDURE: Shoulder 3 View LT INDICATIONS: SHOULDER JOINT PAIN, LEFT TECHNIQUE: 3 views of the shoulder were acquired. COMPARISON: Left humerus radiographs 11/08/2018. FINDINGS: Bones: No acute fractures or dislocations. No suspicious bony lesions. Visualized ribs appear inta ct. Mild to moderate acromioclavicular joint degenerative osteoarthrosis and mild glenohumeral osteo arthrosis. Soft tissues: No suspicious soft tissue calcifications. IMPRESSION: No acute osseous abnormality. If there is clinical concern or persistent symptoms, addit ional imaging such as repeat radiographs or advanced imaging (e.g. CT, MRI) may be helpful for furthe r evaluation. Reviewed by: Eduard Zavala MD on 02/05/2021 2:03 PM PDT Approved by: Eduard Zavala MD on 02/05/2021 2:03 PM PDT Station ID: [id number]
== END 2021-02-05 23:59 | disposition home or self-care (01) ==
LOC: DI.N 14:03
PROVIDERS: ATTEND Family Medicine
DX: M25.512 Pain in left shoulder (principal)

== ENCOUNTER 2021-06-06 14:04 | Outpatient (CLI) | payer MEDICARE, MEDICAID | END 2021-06-06 14:05 | disposition short-term general hospital (02) | LOC: EMS 14:04 | DX: M25.561 Pain in right knee (principal) | CPT/HCPCS: A0425; A0429 ==

== ENCOUNTER 2021-07-16 08:00 | Outpatient (CLI) | payer MEDICARE, MEDICAID ==
[2021-07-16 21:33] LABS: BACTERIAL VAGINOSIS DNA NEGATIVE (NEGATIVE); CANDIDA GLABRATA DNA NEGATIVE (NEGATIVE); CANDIDA GROUP DNA NEGATIVE (NEGATIVE); CANDIDA KRUSEI DNA NEGATIVE (NEGATIVE); TRICHOMONAS VAGINALIS DNA NEGATIVE (NEGATIVE)
[2021-07-16 22:15] LABS: CHLAMYDIA TRACHOMATIS DNA NEGATIVE (NEGATIVE); NEISSERIA GONORRHOEAE DNA NEGATIVE (NEGATIVE); TRICHOMONAS VAGINALIS DNA NEGATIVE (NEGATIVE)
== END 2021-07-16 23:59 | disposition home or self-care (01) ==
LOC: LAB.N 08:00
PROVIDERS: ATTEND Family Medicine
DX: R39.9 Unspecified symptoms and signs involving the genitourinary system (principal)
CPT/HCPCS: 87077; 87086; 87181; 87491; 87591; 87661; 87801

== ENCOUNTER 2021-07-25 08:00 | Outpatient (CLI) | payer MEDICARE, MEDICAID | END 2021-07-25 08:01 | disposition home or self-care (01) | LOC: LAB 08:00 | PROVIDERS: ATTEND Family Medicine | DX: R39.9 Unspecified symptoms and signs involving the genitourinary system (principal) | CPT/HCPCS: 87086 ==

== ENCOUNTER 2021-10-06 10:06 | Outpatient (CLI) | payer MEDICARE, MEDICAID ==
[2021-10-06 10:43] VITALS: BP 136/80
--- NOTE | 2021-10-06 10:43 | SLEEP CARE CONSULTATION ---
Information from patient questionnaire entered by Gosia Redmond MA. I have reviewed and concur with the information entered by Gosia Redmond MA. This document represents the service I personally performed and the decisions made by , Sheri Flores ARNP. History of Present Illness Service Date and Time: 10/06/2021 1006 Previous diagnosis: Extremely Severe, Obstructive Sleep Apnea-Hypopnea Syndrome AHI: 138.5 (in 2006) Reason for follow up: annual (LAST SEEN 10/2020) Equipment type: CPAP Equipment obtained from: [email or web address] (getting supplies as needed) Mask style: Full face Backup mask available: Yes (old mask) Last cushion change: couple months ago, July Prior sleep studies: Yes Year and Where: 2006 - [facility] Sleep Type of Sleep Study: Polysomnography HPI additional information: BRUNA FERRIS was diagnosed to have extremely severe, AHI 138.5, obstructive sleep apnea-hypopnea syndrome and returned today for CPAP therapy annual follow- up. Sleep Study - Results Type of Sleep Study: Polysomnography Prior sleep studies: Yes Year and Where: 2006 - [facility] Sleep CPAP Compliance Data - Data Reviewed with Patient Average duration of nightly device use: 6 hrs 53 secs Compliance rate %: 90 Current pressure setting (cmH2O): 11 Humidity settin Heated hose settin Average residual AHI: 1.1 Average large leak: 13 secs Subjective Missed days of use due to: reports: illness (had a stroke last week) Patient concerns: denies: aerophagia, mask discomfort, air blowing in eyes, mask leak noise, condensation in mask/hose, nasal congestion, dry mouth, nose, throat, epistaxis, other Observed to snore while using device: No Current pressure setting perceived as: comfortable On therapy, patient: reports: sleeping better, awakening more refreshed, being more awake and alert during the day, more rested overall. denies: drowsiness while driving (does not drive) Initial [place] Sleepiness Scale score: 6 (in 2012) Current [place] Sleepiness Scale score: 6 (2021) Allergies and Home Medications Known drug allergies: Yes Home medication list reviewed: Yes (no changes) Review of Systems Review of systems same as previous: No ( small stroke Sep 30, 2021) Physical Exam Vital signs obtained and entered by: DANIEL Redmond Blood Pressure: 136/80 (RIGHT ) Cuff size: wrist Heart Rate: 101 O2 Saturation: 96 (PAPER MASK) Height: 5 ft 3 in Weight: 271 lb Weight change since last visit: 29 pounds gain Body Mass Index: 47.9 BMI Classification: Morbidly Obese Impression and Plan 1. Obstructive Sleep Apnea-Hypopnea Syndrome, extremely severe, with good treatment compliance and good apnea control. On CPAP therapy, the patient has better sleep quality and is more rested overall. Patient had a "small "stroke last for which she went to the hospital. She states she is still a little unsteady on her feet but otherwise is feeling well. She has a follow-up with her primary care doctor next week and her neurologist a week following. Patient has a [employer] by [employer]. I informed the patient that [employer] has a recall on several devices like the patients machine. Patient was encouraged to register their device online with [employer] for the recall to see if their device is affected. If their device is affected they should start a claim. Patient denies any black particles seen in machine or hoses, any unusual odors coming from device. Patient has not experienced any physical symptoms such as upper airway irritation, headache, skin or eye irritation, asthma, nausea/vomiting, difficulty breathing or chest pain. If patient is not able to sleep due to waking up choking, gasping for air or other respiratory distress that they may decide to continue using it until it is either replaced or repaired. Patient will check into it and she will probably continue to use her device unless she sees any debris in her machine. Patient voiced understanding and agreement with plan. Patient's apnea severity and rationale for treatment to reduce apnea, improve sleep quality and reduce cardiovascular and cerebrovascular events was reviewed. I also reviewed the benefit of consistent device use of CPAP for cerebrovascular disease, diabetes and depression. She has been walking and [facility] to try to lose weight. Patient has gained weight. Patient was encouraged to continue to try to lose weight for their overall health and to reduce apneas. * Continue auto CPAP pressure at 11 cmH2O * Notify me if snoring with mask or feeling that the pressure is too much or too little * Continue to try to lose weight * Call this office if any problems using CPAP * Return for follow up in 1 year, or sooner if concerns arise Counseling Topics: Spare mask, Weight loss health impact Visit Type: In Office Time Spent with Patient (minutes): 22 Provider Statement: I spent 100% of the Face to Face Visit with the patient with greater than 50% spent counseling the patient and coordination of care.
== END 2021-10-06 10:07 | disposition home or self-care (01) ==
LOC: SC 10:06
PROVIDERS: ATTEND Nurse Practitioner Family
DX: G47.33 Obstructive sleep apnea (adult) (pediatric) (principal); E66.01 Morbid (severe) obesity due to excess calories; Z68.42 Body mass index [BMI] 45.0-49.9, adult
CPT/HCPCS: 99213; G0463; 99212

== ENCOUNTER 2021-10-15 08:00 | Outpatient (CLI) | payer MEDICARE, MEDICAID ==
[2021-10-15 18:07] LABS: BASOPHILS % (AUTO) 0.4 %; EOSINOPHILS # (AUTO) 0.2 10^3/uL (0.0-0.7); EOSINOPHILS % (AUTO) 2.4 %; HCT - HEMATOCRIT 43.6 % (37.0-47.0); HGB - HEMOGLOBIN 13.3 g/dL (12.0-16.0); LYMPHOCYTES # (AUTO) 1.5 10^3/uL (1.5-3.5); LYMPHOCYTES % (AUTO) 21.2 %; MEAN CORPUSCULAR HEMOGLOBIN 28.9 pg (27.0-31.0); MEAN CORPUSCULAR HGB CONC 30.5 g/dL (32.0-36.0); MEAN CORPUSCULAR VOLUME 94.8 fL (81.0-99.0); MEAN PLATELET VOLUME 9.8 fL (7.9-10.8); MONOCYTES # (AUTO) 0.5 10^3/uL (0.0-1.0); MONOCYTES % (AUTO) 7.5 %; NEUTROPHILS # (AUTO) 4.9 10^3/uL (1.5-6.6); NEUTROPHILS % (AUTO) 68.2 %; PLT - PLATELET COUNT 273 10^3/uL (130-450); RED CELL DISTRIBUTION WIDTH 14.2 % (12.0-15.0); WHITE BLOOD COUNT 7.2 x10^3/uL (4.8-10.8)
[2021-10-15 18:37] LABS: ALBUMIN 3.6 g/dL (3.2-5.5); ALBUMIN/GLOBULIN RATIO 0.8 (1.0-2.2); ALKALINE PHOSPHATASE 83 IU/L (42-121); ALT ALANINE AMINOTRANSFERASE 17 IU/L (10-60); AST ASPARTATE AMINOTRANSFERASE 15 IU/L (10-42); BILIRUBIN,TOTAL 0.3 mg/dL (0.2-1.0); BUN - BLOOD UREA NITROGEN 25 mg/dL (6-20); CALCIUM 9.7 mg/dL (8.5-10.3); CARBON DIOXIDE - CO2 28 mmol/L (21-32); CHLORIDE 105 mmol/L (101-111); CHOL/HDL RATIO 2.6 (<4.4); CHOLESTEROL 156 mg/dL; GFR - MDRD 55 (>89); GLUCOSE 111 mg/dL (70-100); HDL CHOLESTEROL 60 mg/dL; LDL CHOLESTEROL,CALCULATED 75 mg/dL; LDL/HDL RATIO 1.3 (<4.4); POTASSIUM 4.7 mmol/L (3.5-5.0); SODIUM 140 mmol/L (135-145); THYROID STIMULATING HORMONE 1.97 uIU/mL (0.34-5.60); TOTAL PROTEIN 7.9 g/dL (6.7-8.2); TRIGLYCERIDES 104 mg/dL; VLDL CHOLESTEROL 21 mg/dL
[2021-10-15 18:42] LABS: CREATININE,URINE 94.5 mg/dL; MICROALBUM/CREATININE RATIO,UR 7.4 ug/mg (<30.0); MICROALBUMIN,URINE 0.7 mg/dL (0-300.0)
[2021-10-15 20:14] LABS: ESTIMATED AVERAGE GLUCOSE 128 mg/dL (70-100); HEMOGLOBIN A1c% 6.1 % (4.27-6.07)
== END 2021-10-15 23:59 | disposition home or self-care (01) ==
LOC: LAB.WCP 08:00
PROVIDERS: ATTEND Internal Medicine
DX: I10 Essential (primary) hypertension (principal); E11.9 Type 2 diabetes mellitus without complications; K59.00 Constipation, unspecified; D50.9 Iron deficiency anemia, unspecified
CPT/HCPCS: 36415; 80053; 80061; 82043; 82570; 83036; 83721; 84443; 85025

== ENCOUNTER 2021-11-01 12:58 | Outpatient (CLI) | payer MEDICARE, MEDICAID | END 2021-11-01 12:59 | disposition short-term general hospital (02) | LOC: EMS 12:58 | DX: R11.2 Nausea with vomiting, unspecified (principal); R19.7 Diarrhea, unspecified; R42 Dizziness and giddiness | CPT/HCPCS: A0425; A0427 ==

== ENCOUNTER 2021-12-10 11:40 | Outpatient (CLI) | payer MEDICARE, MEDICAID | END 2021-12-10 11:41 | disposition critical access hospital (66) | LOC: EMS 11:40 | DX: S01.21XA Laceration without foreign body of nose, initial encounter (principal); S00.12XA Contusion of left eyelid and periocular area, initial encounter; M54.2 Cervicalgia; R42 Dizziness and giddiness; W01.0XXA Fall on same level from slipping, tripping and stumbling without subsequent striking against object, initial encounter; Y92.038 Other place in apartment as the place of occurrence of the external cause | CPT/HCPCS: A0425; A0427 ==

== ENCOUNTER 2021-12-10 11:59 | Emergency (ER) | payer MEDICARE, MEDICAID ==
--- NOTE | 2021-12-10 12:13 | ED Physician Documentation ---
History of Present Illness - Stated complaint Stated Complaint: FALL/HEAD INJ - Additonal information Additional information: 71-year-old female presents the emergency department via EMS as a modified trauma for evaluation of closed head injury after ground-level fall this morning . 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 There was no loss of consciousness however she does have a superficial laceration to the bridge of her nose as well as left small periorbital hematoma. Patient denies that this was a syncopal event. States she had a CVA in 2010 and as a result has some mild right-sided weakness and balance issues. She typically walks with a walker but was not using one today. She is on Plavix. Patient is reporting pain at the base of her neck as well as her lower back. States she has had lumbar fixation. She does not present in a c-collar and was taken to CT before a collar could be applied. . Review of Systems Constitutional: denies: Fever, Chills Eyes: denies: Loss of vision, Decreased vision Ears: reports: Reviewed and negative Nose: reports: Reviewed and negative Throat: reports: Reviewed and negative Cardiac: reports: Reviewed and negative Respiratory: reports: Reviewed and negative GI: reports: Reviewed and negative : reports: Reviewed and negative Skin: reports: Laceration (s). denies: Rash Musculoskeletal: reports: Neck pain, Back pain Neurologic: reports: Headache, Head injury. 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 : Retention HEENT: Other Psych: Depression Musculoskeletal: None Derm: None - Past Surgical History Past Surgical History: Yes General: Cholecystectomy, Appendectomy, Bowel surgery, Hiatal hernia repair, Colonoscopy Ortho: Other /PHOTO LAB MANAGER: section HEENT: Tonsil/Adenoidectomy - Present Medications Home Medications: Ambulatory Orders Medication Instructions Recorded Confirmed Fenofibrate [Lipofen] 54 mg PO HS 02/18/13 01/14/18 Calcium Carb/Vit D3/Minerals 1 each PO DAILY 12/26/13 01/14/18 [Calcium 1,200 mg Tablet Chew] Cholecalciferol (Vitamin D3) 2,000 unit PO DAILY 12/26/13 01/14/18 [Vitamin D] Clopidogrel [Plavix] 75 mg PO DAILY 01/06/14 01/14/18 Sertraline HCl [Zoloft] 100 mg PO QDBREAKFAST 12/03/14 01/14/18 Acetaminophen [Tylenol Extra 1,000 mg PO DAILY PRN 12/12/14 01/14/18 Strength] Vitamin B Complex 1,000 mg PO DAILY 01/04/15 01/14/18 Topiramate [Topiramate ER] 50 mg PO BID 07/27/15 01/14/18 Trazodone HCl 100 mg PO QPM 01/23/16 01/14/18 Albuterol Sulfate [Proventil Hfa 1 - 2 puffs IH Q4H PRN #1 02/22/16 01/14/18 Inhaler] hfa.aer.[email or web address] Bupropion HCl [Wellbutrin Sr] 300 mg PO DAILY 03/22/16 01/14/18 Gabapentin 600 mg PO TID 03/22/16 01/14/18 metFORMIN [Glucophage] 500 mg PO BID 03/22/16 01/14/18 Magnesium Hydroxide [Milk of 400 mg PO DAILY PRN #240 ml 07/29/16 01/14/18 Magnesia] HYDROcod/ACETAM 5/325 [Homer 5/325] 1 - 2 ea PO Q6H PRN #15 tablet 10/22/16 01/14/18 Amitriptyline [Elavil] 25 mg QPM 12/08/16 01/14/18 Fenofibrate 54 mg PO DAILY 02/14/17 01/14/18 Lidocaine Patch 5% [Lidoderm Patch] 1 each TOP DAILY PRN #10 patch 02/14/17 01/14/18 Hydrocodone/Acetaminophen [Vicodin 1 each PO Q6HR PRN #12 tablet 03/26/17 01/14/18 5-300 mg Tablet] Nitrofurantoin Monohyd/M-Cryst 100 mg PO BID #10 capsule 11/16/17 01/14/18 [Macrobid 100 mg Capsule] Sulfamethox/Trimeth 800/160 1 each PO BID #14 tablet 01/14/18 [Bactrim Ds 800/160] cephALEXin [Keflex] 500 mg PO QID 01/14/18 01/14/18 Clindamycin HCl [Clindamycin 300MG 300 mg PO Q6H 7 Days capsule 01/24/18 CAP] Amox/Clav 875/125 [Augmentin] 1 each PO Q12H #19 tablet 01/30/18 - Allergies Allergies/Adverse Reactions: Allergies Allergy/AdvReac Type Severity Reaction Status Date / Time vancomycin Allergy Hives Verified 12/10/21 12:10 - Social History Does the pt smoke?: No Smoking Status: Never smoker Does the pt drink ETOH?: No Does the pt have substance abuse?: No - Immunizations Immunizations are current?: Yes Immunizations: TDAP >10years/unknown - POLST Patient has POLST: Yes POLST Status: DNR PD ED PE EXPANDED - General General: Alert, No acute distress, Other (morbidely obese) - Neck Neck: Soft tissue TTP, Other. No: Bony TTP - Cardiac Cardiac: Regular Rate, Radial strong equal, Pedal strong equal, Cap refill < 2 sec - Respiratory Respiratory: No: Distress, Labored - Abdomen Abdomen: Normal Bowel sounds, Other (Morbid obesity and body habitus limiting exam). No: Tender to palpation - Back Back: Vertebral tenderness (generalized lower lumbar tenderness. no midline thoracic tenderness, crepitus or stepoff appreciated), Soft tissue tenderness - Derm Derm: Normal color, Warm and dry, Laceration(s) (superficial laceration 0.5 cm bridge of nose) - Extremities Extremities: No: Deformity, Tenderness - Neuro Neuro: Alert and Oriented X 3, CNII-XII intact, Normal speech. No: Weakness (motor strength 4/5 right arm/leg unchanged from baseline; 5/5 left arm/leg) - GCS Eye Opening: Spontaneous Motor: Obeys Commands Verbal: Oriented Total: 15 Results - Vitals Vitals: Vital Signs - 24 hr 12/10/21 12/10/21 12:01 14:17 Temperature 35.8 C L Heart Rate 88 87 Respiratory 18 19 Rate Blood Pressure 138/64 H 148/76 H O2 Saturation 97 95 Oxygen O2 Source [] Nasal cannula O2 Source [] Room air O2 Source Room air - Labs Labs: Laboratory Tests 12/10/21 12/10/21 12/10/21 12:10 12:10 12:10 WBC 6.3 RBC 4.57 Hgb 13.7 Hct 42.3 MCV 92.6 MCH 30.0 MCHC 32.4 RDW 14.3 Plt Count 227 MPV 9.5 Neut # (Auto) 4.4 Lymph # (Auto) 1.3 L [place] # (Auto) 0.5 Eos # (Auto) 0.1 Baso # (Auto) 0.0 Absolute Nucleated RBC 0.00 Nucleated RBC % 0.0 PT 11.9 INR 1.1 Sodium 137 Potassium 4.2 Chloride 103 Carbon Dioxide 24 Anion Gap 10.0 BUN 32 H Creatinine 1.3 H Estimated GFR (MDRD) 41 L Glucose 155 H Calcium 9.7 Total Bilirubin 0.2 AST 18 ALT 19 Alkaline Phosphatase 70 Total Protein 7.7 Albumin 3.7 Globulin 4.0 Albumin/Globulin Ratio 0.9 L Lipase 42 - Rads (name of study) ct head Radiology: Final report received (No acute intracranial abnormality. Minimally displaced left facial bone fracture without overlying soft tissue swelling likely chronic. Recommend correlation with clinical exam. Sequelae of prior bilateral infarcts involving the frontal parietal lobe and insular cortices redemonstrated.) lumbar ct Radiology: Final report received (Multilevel pectoral degenerative changes. Postsurgical changes of L2-S1 posterior fixation without acute complicating hardware feature) cervical ct Radiology: Final report received (No fracture or subluxation. Multilevel degenerative changes throughout cervical spine. Slight reversal of cervical lordosis centered at C4-C5. Mild anterior listhesis C3-C4. Findings are similar to prior study) maxfac ct Radiology: Final report received (Minimally displaced fractures of the nasal bones and bony nasal septum) cxr Radiology: Final report received (No definite acute traumatic abnormality) PD MEDICAL DECISION MAKING - ED course Complexity details: reviewed results, re-evaluated patient, considered differential, d/w patient ED course: 71-year-old female who has known right-sided weakness secondary to previous CVA presents the emergency department after a ground-level fall this morning. 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 No loss of consciousness. She does take Plavix. Is she presents with a superficial abrasion to the bridge of her nose and some small left-sided epistaxis that is fully resolved. She arrived via EMS as a modified trauma but no c-collar was in place. On exam GCS is 15. She did have some lower midline cervical tenderness. His CT ultimately negative for acute fracture though there are significant degenerative changes. She also reported lower lumbar tenderness with a history of previous spinal fixation. CT was negative for acute fracture. CT the head showed no acute intracranial findings. There is noted possible left facial fracture unclear if this is acute. Maxillofacial CT demonstrated mildly displaced nasal bone fractures. Following some analgesia here in the emergency department patient was able to ambulate with minimal assistance using her walker. Given the history of previous CVA and right-sided deficit will avoid the use of narcotics. Will encourage Tylenol for analgesia and discomfort. Will refer to Dr. Arechiga with [facility] in [place] for follow-up of the nasal fracture. Advised to avoid nasal blowing but use ocean mistnasal spray spray for the next 48 to 72 hours twice daily. Emergent return precautions otherwise discussed. 1430: Dr. Borrego did return my initial phone call. We discussed the CT imaging results. He feels she is appropriate for outpatient follow-up in his office with nasal precautions. No antibiotics at this time. Departure - Departure Disposition: 01 Home, Self Care Clinical Impression: Fall from ground level Nasal bones, closed fracture Qualifiers: Encounter type: initial encounter Qualified Code(s): S02.2XXA - Fracture of nasal bones, initial encounter for closed fracture Condition: Stable Record reviewed to determine appropriate education?: Yes Instructions: Fx Nose About Ch Follow-Up: Viktor Borrego DDS [Provider Admit Priv/Credential] - Comments: Malathi were seen in the emergency department today after a ground-level fall at home. The CT of your head and face show that you do have a mildly displaced nasal bone fracture. in general it is important over the next week that you do not forcefully blow your nose. This could cause swelling in your face. We do recommend that you use a nasal saline rinse such as [place] mist nasal spray twice daily. I would like you to follow-up with Dr. Borrego an oral maxillofacial surgeon in [place]. He can be reached at [phone]. In general I expect you to be very sore over the next few days. Tylenol can be taken for discomfort. Always use your walker when walking. If at any point you have sudden severe headache, sudden facial droop weakness in your arms or legs or uncontrolled vomiting then please return immediately to the ER for a second evaluation Discharge Date/Time: 12/10/21 14:27
[2021-12-10 12:19] LABS: BASOPHILS % (AUTO) 0.6 %; EOSINOPHILS # (AUTO) 0.1 10^3/uL (0.0-0.7); EOSINOPHILS % (AUTO) 1.3 %; HCT - HEMATOCRIT 42.3 % (37.0-47.0); HGB - HEMOGLOBIN 13.7 g/dL (12.0-16.0); LYMPHOCYTES # (AUTO) 1.3 10^3/uL (1.5-3.5); LYMPHOCYTES % (AUTO) 20.9 %; MEAN CORPUSCULAR HGB CONC 32.4 g/dL (32.0-36.0); MEAN CORPUSCULAR VOLUME 92.6 fL (81.0-99.0); MEAN PLATELET VOLUME 9.5 fL (7.9-10.8); MONOCYTES # (AUTO) 0.5 10^3/uL (0.0-1.0); MONOCYTES % (AUTO) 7.2 %; NEUTROPHILS # (AUTO) 4.4 10^3/uL (1.5-6.6); NEUTROPHILS % (AUTO) 69.8 %; PLT - PLATELET COUNT 227 10^3/uL (130-450); RED BLOOD COUNT 4.57 10^6/uL (4.20-5.40); RED CELL DISTRIBUTION WIDTH 14.3 % (12.0-15.0); WHITE BLOOD COUNT 6.3 x10^3/uL (4.8-10.8)
[2021-12-10 12:26] LABS: ALBUMIN 3.7 g/dL (3.2-5.5); ALBUMIN/GLOBULIN RATIO 0.9 (1.0-2.2); BILIRUBIN,TOTAL 0.2 mg/dL (0.2-1.0); CALCIUM 9.7 mg/dL (8.5-10.3); CREATININE 1.3 mg/dL (0.4-1.0); POTASSIUM 4.2 mmol/L (3.5-5.0); TOTAL PROTEIN 7.7 g/dL (6.7-8.2)
[2021-12-10 12:27] LABS: INR 1.1 (0.8-1.2); PT - PROTHROMBIN TIME 11.9 secs (9.9-12.6)
[2021-12-10] MEDS ORDERED: HYDROmorphone 1 MG/ML CARPUJECT IVP STA (12:35)
--- OUTSIDE RECORDS SUMMARY | 2021-12-10 12:50 | EXTERNAL MEDICAL SUMMARY RPT | Continuity of Care Document ---
: Demographics Phone Unavailable Preferred Language Serbian Marital Status Shinto Affiliation [place] Race Unknown Ethnic Group Unknown Author Organization [facility] Address [address] [place] [address] Phone Care Team Providers Name Role Phone Poonam Laguna Unavailable Unavailable Allergies No information. Encounters No information. Medications date description facility 20211101 Losartan Potassium 50 MG Oral Tablet I [facility] 20211101 Verapamil hydrochloride 80 MG Oral Tabl [facility] 20211101 Divalproex Sodium 250 MG Enteric Coated Tablet [facility] 20211002 24 HR Bupropion Hydrochloride 300 MG Ex tended Release [facility] Tablet 20210930 Losartan Potassium 50 MG Oral Tablet I [facility] 20210930 Sertraline 100 MG Oral Tablet [facility]ital Problems date description facility 20211104 Noninfective gastroenteritis and coliti s, unspecified [facility] 20211101 Noninfective gastroenteritis and coliti s, unspecified [facility] 20210930 Cerebral infarction, unspecified [facility] Procedures date description facility 20211104 [facility] 20211104 [facility] 20211104 [facility] 20211101 [facility] 20211020 [facility] [id number] [facility] [id number] [facility] [id number] [facility] [id number] [facility] Results No information. Vital Signs date measurement value source 20210916 weight_standard 125.64 lb 20210916 weight_metric 56.99 kg 20210916 height_standard 65.5 in 20210916 height_metric 166.37 cm 20210916 BP_systolic 146 mm[Hg] 20210916 BP_diastolic 78 mm[Hg] 20210916 BMI 45.3 kg/m2 20210930 weight_standard 127.01 lb 20210930 weight_standard 126.2 lb 20210930 weight_metric 57.61 kg 20210930 weight_metric 57.24 kg 20210930 temperature_standard 98.8 F 20210930 temperature_metric 37.11 C 20210930 respiration_rate 18 /min 20210930 height_standard 65 in 20210930 height_metric 165.1 cm 20210930 heart_rate 90 /min 20210930 BP_systolic 156 mm[Hg] 20210930 BP_diastolic 76 mm[Hg] 20210930 BMI 46.5 kg/m2 20211002 temperature_standard 96.8 F 20211002 temperature_metric 36 C 20211002 respiration_rate 18 /min 20211002 heart_rate 82 /min 20211002 BP_systolic 164 mm[Hg] 20211002 BP_diastolic 74 mm[Hg] 20211020 weight_standard 125.19 lb 20211020 weight_metric 56.79 kg 20211020 height_standard 65 in 20211020 height_metric 165.1 cm 20211020 BP_systolic 134 mm[Hg] 20211020 BP_diastolic 78 mm[Hg] 20211020 BMI 45.9 kg/m2 20211101 weight_standard 127.6 lb 20211101 weight_metric 57.88 kg 20211101 temperature_standard 98.4 F 20211101 temperature_metric 36.89 C 20211101 respiration_rate 20 /min 20211101 height_standard 65 in 20211101 height_metric 165.1 cm 20211101 heart_rate 100 /min 20211101 BP_systolic 158 mm[Hg] 20211101 BP_diastolic 101 mm[Hg] 20211101 BMI 46.7 kg/m2 20211105 weight_standard 125 lb 20211105 weight_metric 56.7 kg 20211106 temperature_standard 97.6 F 20211106 temperature_metric 36.44 C 20211106 respiration_rate 17 /min 20211106 heart_rate 80 /min 20211106 BP_systolic 155 mm[Hg] 20211106 BP_diastolic 77 mm[Hg]
--- NOTE | 2021-12-10 12:51 | CT Report ---
PROCEDURE: HEAD WO INDICATIONS: glf; plavix; left PO hematoma TECHNIQUE: Noncontrast 4.5 mm thick angled axial sections acquired from the foramen magnum to the vertex. For r adiation dose reduction, the following was used: automated exposure control, adjustment of mA and/or kV according to patient size. COMPARISON: CT angiogram head 01/05/2021, CT facial bones 12/10/2021. FINDINGS: Image quality: Excellent. CSF spaces: Basal cisterns are patent. No extra-axial fluid collections. Ventricles are normal in size and shape. Brain: No intracranial hemorrhage, mass, or mass effect. There are bilateral areas of cortical and subcortical encephalomalacia involving the frontoparietal lobes as well as the insular cortices redem onstrated consistent with sequelae of prior infarcts. Skull and face: There is mild left periorbital soft tissue swelling. The globes appear intact. Calv arium appears intact. There is a minimally displaced fracture of the left facial bones without overly ing soft tissue swelling which is likely chronic. Sinuses: Visualized sinuses demonstrate mild mucosal thickening in the left maxillary sinus. The mas toid air cells are clear. IMPRESSION: 1. No acute intracranial abnormality. 2. Minimally displaced left facial bone fracture without overlying soft tissue swelling is likely chr onic. Recommend correlation with clinical exam. 3. Sequelae of prior bilateral infarcts involving the frontoparietal lobes and insular cortices redem onstrated. Reviewed by: Mark Puckett MD on 12/10/2021 12:50 PM PST Approved by: Mark Puckett MD on 12/10/2021 12:50 PM PST Station ID: [id number]
--- NOTE | 2021-12-10 13:07 | CT Report ---
PROCEDURE: MAXILLOFACIAL WO INDICATIONS: glf; nasal laceration and epistaxis TECHNIQUE: Noncontrast 1.5 mm thick axial images acquired from the mandible through the frontal sinuses, with co mague and sagittal reformatting. For radiation dose reduction, the following was used: automated ex posure control, adjustment of mA and/or kV according to patient size. COMPARISON: Concurrent CT of the head. FINDINGS: Image quality: Excellent. Bones and teeth: There are minimally displaced fractures of the nasal bones and bony nasal septum an teriorly. Orbital vyas are intact. Sinus vyas show no fracture or deformity. Visualized portions of the mandible demonstrate no fractures or subluxation. Zygomatic arches are intact. Pterygoid елена misael are intact. Visualized portions of the skull base and auditory canals are intact. Sinuses: Paranasal sinuses are aerated, without fluid levelsMastoid. There is mild mucosal thickenin g in the left maxillary sinus and bilateral ethmoid sinuses. The mastoid air cells are clear. Soft tissues: There is left periorbital soft tissue swelling. The globes appear intact. No intraorbit al fluid collections or retrobulbar fat stranding. Vascular: Visualized vascular structures appear normal in the absence of contrast. Bony vascular fo ramina and canals are intact. IMPRESSION: 1. Minimally displaced fractures of the nasal bones and bony nasal septum. Reviewed by: Mark Puckett MD on 12/10/2021 1:05 PM PST Approved by: Mark Puckett MD on 12/10/2021 1:05 PM PST Station ID: [id number]
--- NOTE | 2021-12-10 13:12 | CT Report ---
PROCEDURE: CERVICAL SPINE WO INDICATIONS: glf; neck pain TECHNIQUE: Noncontrast 3 mm thick sections acquired from the skull base to the T4 level. Sagittal and coronal r eformats were then constructed. For radiation dose reduction, the following was used: automated exp osure control, adjustment of mA and/or kV according to patient size. COMPARISON: 08/14/2016. FINDINGS: Image quality: There is mild motion artifact. Bones: No fractures or subluxation. There is straightening of the cervical lordosis with slight reve rsal at C4-C5. There is mild anterolisthesis at C3-C4 which appears similar to the prior study. Multi level degenerative disc disease is demonstrated including moderate degeneration in the mid and lower cervical spine. There is also multilevel facet arthropathy including severe degeneration in the upper cervical spine. There is ossification along the posterior longitudinal ligament at C4-C5 redemonstra guillermina. Visualized superior ribs are intact. Soft tissues: Prevertebral soft tissues are normal in thickness. No paravertebral hematomas. No ap ical pneumothoraces. There is mild fluid distention of the partially visualized esophagus. IMPRESSION: 1. No fracture or subluxation. 2. Multilevel degenerative changes throughout the cervical spine including moderate degenerative disc disease in the mid and lower cervical spine. 3. Slight reversal of the cervical lordosis centered at C4-C5. Mild anterolisthesis present at C3-C4. Findings are similar to the prior study. Reviewed by: Mark Puckett MD on 12/10/2021 1:11 PM PST Approved by: Mark Puckett MD on 12/10/2021 1:11 PM PST Station ID: [id number]
--- NOTE | 2021-12-10 13:13 | XRAY Report ---
PROCEDURE: Chest 1 View X-Ray INDICATIONS: chest pain TECHNIQUE: One view of the chest was acquired. COMPARISON: 01/24/2018. FINDINGS: Surgical changes and devices: None. Lungs and pleura: There are linear left basilar opacities likely representing atelectasis or scarrin g redemonstrated. No definite acute airspace opacities. No pleural effusions or pneumothorax. Mediastinum: Mediastinal contours appear unchanged. Heart size is mildly enlarged. Bones and chest wall: No displaced fractures identified. No suspicious bony lesions. Overlying soft tissues appear unremarkable. IMPRESSION: 1. No definite acute traumatic abnormality. Reviewed by: Mark Puckett MD on 12/10/2021 1:12 PM PST Approved by: Mark Puckett MD on 12/10/2021 1:12 PM PST Station ID: [id number]
--- NOTE | 2021-12-10 13:14 | CT Report ---
PROCEDURE: LUMBAR SPINE WO INDICATIONS: lbp after fall; hxof fixation TECHNIQUE: Noncontrast 3 mm thick sections acquired from the T12 level to the sacrum. Sagittal and coronal refo rmats were constructed. For radiation dose reduction, the following was used: automated exposure co ntrol, adjustment of mA and/or kV according to patient size. COMPARISON: 07/29/2016 FINDINGS: Motion degraded examination. Postsurgical changes L2-S1 posterior fixation by means of bilateral rods and pedicle screws. No abnor mal lucency surrounding the hardware to indicate loosening. The hardware appears intact without evide nce of fracture or failure. Anterolisthesis of L4 on L5 is seen on previous examinations. T12-L1: No spinal canal or neural foraminal stenosis. Disc height loss and vacuum disc phenomenon. L1-L2: Vacuum disc phenomenon and disc height loss. Diffuse disc bulge and posterior osteophytic ridg ing of the endplates flatten the ventral thecal sac and produce mild spinal canal stenosis. Foraminal components of the disc bulge and posterior osteophytic ridging of the endplates produce moderate shirley roforaminal narrowing bilaterally. L2-L3: Laminectomy changes which decompress the spinal canal especially on the right. Diffuse disc bulge and some residual posterior ossific ridging flattens the ventral thecal sac. There is mild yajaira ateral neural foraminal stenosis. L3-L4: Posterior disc osteophyte complex flattens the ventral thecal sac. Mild neural foraminal steno sis due to foraminal components of the disc bulge and posterior osteophytic ridging of the endplates. L4-L5: No spinal canal stenosis. Moderate bilateral neural foraminal narrowing due to foraminal com ponents of of a diffuse disc bulge and posterior osteophytic ridging the endplates as well as foramin al distortion due to the listhesis. L5-S1: No spinal canal stenosis [id number] neural foraminal narrowing on the left. Soft tissues: No retroperitoneal masses or hematomas. Visualized aorta is normal in caliber. IMPRESSION: Multilevel pectoral degenerative changes as described above. Postsurgical changes of L2-S1 posterior fixation without acute complicating hardware feature. Reviewed by: Cj Andrade MD on 12/10/2021 1:12 PM PST Approved by: Cj Andrade MD on 12/10/2021 1:12 PM PST Station ID: [id number]
[2021-12-10 14:18] VITALS: BP 148/76
== END 2021-12-10 14:27 | disposition home or self-care (01) ==
LOC: EDUNIT# → ED 11:59
DX: S02.2XXA Fracture of nasal bones, initial encounter for closed fracture (principal); W18.30XA Fall on same level, unspecified, initial encounter; Y93.89 Activity, other specified; Y92.009 Unspecified place in unspecified non-institutional (private) residence as the place of occurrence of the external cause; I69.951 Hemiplegia and hemiparesis following unspecified cerebrovascular disease affecting right dominant side; I10 Essential (primary) hypertension; I48.91 Unspecified atrial fibrillation; E11.9 Type 2 diabetes mellitus without complications; Z79.84 Long term (current) use of oral hypoglycemic drugs; Z79.01 Long term (current) use of anticoagulants
CPT/HCPCS: 36415; 70450; 70486; 71045; 72125; 72131; 80053; 83690; 85025; 85610; 96374; 99284; J1170

== ENCOUNTER 2021-12-13 12:36 | Emergency (ER) | payer MEDICARE, MEDICAID ==
--- OUTSIDE RECORDS SUMMARY | 2021-12-13 13:16 | EXTERNAL MEDICAL SUMMARY RPT | Continuity of Care Document ---
: Demographics Phone Unavailable Preferred Language Turkish Marital Status Sikh Affiliation [place] Race Unknown Ethnic Group Unknown Author Organization [facility] Address [address] [place] [address] Phone Care Team Providers Name Role Phone Poonam Laguna Unavailable Unavailable Allergies No information. Encounters No information. Medications date description facility [id number] Losartan Potassium 50 MG Oral Tablet I [facility] [id number] Verapamil hydrochloride 80 MG Oral Tabl [facility] [id number] Divalproex Sodium 250 MG Enteric Coated Tablet [facility] [id number] 24 HR Bupropion Hydrochloride 300 MG Ex tended Release [facility] Tablet [id number] Losartan Potassium 50 MG Oral Tablet I [facility] [id number] Sertraline 100 MG Oral Tablet ospital Problems date description facility [id number] Noninfective gastroenteritis and coliti s, unspecified [facility] [id number] Noninfective gastroenteritis and coliti s, unspecified [facility] [id number] Cerebral infarction, [facility] Procedures date description facility [id number] [facility] [id number] [facility] [id number] [facility] [id number] [facility] [id number] [facility] [id number] [facility] [id number] [facility] [id number] [facility] [id number] [facility] Results No information. Vital Signs date measurement [...]
--- NOTE | 2021-12-13 14:07 | XRAY Report ---
PROCEDURE: Knee 4 View RT INDICATIONS: knee injury TECHNIQUE: 4 views of the right knee(s) were acquired. COMPARISON: None. FINDINGS: Bones: There is irregular cortical calcification at the medial humeral condyle. No suspicious bony le sions. Soft tissues: No joint effusion. No suspicious soft tissue calcifications. IMPRESSION: Irregular medial humeral condyle calcification suspicious for avulsion fracture. Reviewed by: Tamar Chaudhari MD on 12/13/2021 2:06 PM PDT Approved by: Tamar Chaudhari MD on 12/13/2021 2:06 PM PDT Station ID: [id number]
[2021-12-13 15:12] VITALS: BP 144/91
--- NOTE | 2021-12-13 15:45 | ED Physician Documentation ---
History of Present Illness - Stated complaint Stated Complaint: R KNEE PX,BLUR VISION,HEADACHE - Chief complaint Chief Complaint: General - History obtained from History obtained from: Patient, EMS - Additonal information Additional information: The patient comes to the emergency department chief complaint of right knee pain after a fall several days ago. The patient states she was seen at that time and had a number of studies done, according to records including a CT of the head and of the neck, but forgot to mention that she had fallen on her right knee. The patient states it did not hurt that much initially but began to hurt over the last few days. She denies feeling a pop or crack at that time. The patient states that she has had pain all over the knee including around her kneecap. S he denies any instability. She walks with a walker and has been able to continue ambulating, though the pain does cause her to limp. She has been using Tylenol at home. She denies any new injuries. She states she had some visual changes which mainly consisted of some blurred vision this morning and a mild frontal headache but denies any vomiting or other focal neurologic deficits. No other complaints at this time. Review of Systems Ten Systems: 10 systems reviewed and negative Constitutional: reports: Reviewed and negative Eyes: reports: Reviewed and negative Ears: reports: Reviewed and negative Nose: reports: Reviewed and negative Throat: reports: Reviewed and negative Cardiac: reports: Reviewed and negative Respiratory: reports: Reviewed and negative GI: reports: Reviewed and negative : reports: Reviewed and negative Skin: reports: Reviewed and negative Musculoskeletal: reports: Joint pain, Joint swelling Neurologic: reports: Reviewed and negative Psychiatric: reports: Reviewed and negative Endocrine: reports: Reviewed and negative Immunocompromised: reports: Reviewed and negative PD PAST MEDICAL HISTORY - Past Medical History Cardiovascular: Hypertension, Atrial fibrillation Respiratory: COPD, Shortness of breath, CPAP use Neuro: CVA, TIA Endocrine/Autoimmune: Type 2 diabetes GI: Hiatal hernia, Cholelithiasis CHIEF MEDICAL DIRECTOR: None : Retention HEENT: Other Psych: Depression Musculoskeletal: None Derm: None - Past Surgical History Past Surgical History: Yes General: Cholecystectomy, Appendectomy, Bowel surgery, Hiatal hernia repair, Colonoscopy Ortho: Other /CHIEF MEDICAL DIRECTOR: section HEENT: Tonsil/Adenoidectomy - Present Medications Home Medications: Ambulatory Orders Medication Instructions Recorded Confirmed Fenofibrate [Lipofen] 54 mg PO HS 02/18/13 01/14/18 Calcium Carb/Vit D3/Minerals 1 each PO DAILY 12/26/13 01/14/18 [Calcium 1,200 mg Tablet Chew] Cholecalciferol (Vitamin D3) 2,000 unit PO DAILY 12/26/13 01/14/18 [Vitamin D] Clopidogrel [Plavix] 75 mg PO DAILY 01/06/14 01/14/18 Sertraline HCl [Zoloft] 100 mg PO QDBREAKFAST 12/03/14 01/14/18 Acetaminophen [Tylenol Extra 1,000 mg PO DAILY PRN 12/12/14 01/14/18 Strength] Vitamin B Complex 1,000 mg PO DAILY 01/04/15 01/14/18 Topiramate [Topiramate ER] 50 mg PO BID 07/27/15 01/14/18 Trazodone HCl 100 mg PO QPM 01/23/16 01/14/18 Albuterol Sulfate [Proventil Hfa 1 - 2 puffs IH Q4H PRN #1 02/22/16 01/14/18 Inhaler] hfa.aer.ad Bupropion HCl [Wellbutrin Sr] 300 mg PO DAILY 03/22/16 01/14/18 Gabapentin 600 mg PO TID 03/22/16 01/14/18 metFORMIN [Glucophage] 500 mg PO BID 03/22/16 01/14/18 Magnesium Hydroxide [Milk of 400 mg PO DAILY PRN #240 ml 07/29/16 01/14/18 Magnesia] HYDROcod/ACETAM 5/325 [[place] 5/325] 1 - 2 ea PO Q6H PRN #15 tablet 10/22/16 01/14/18 Amitriptyline [Elavil] 25 mg QPM 12/08/16 01/14/18 Fenofibrate 54 mg PO DAILY 02/14/17 01/14/18 Lidocaine Patch 5% [Lidoderm Patch] 1 each TOP DAILY PRN #10 patch 02/14/17 01/14/18 Hydrocodone/Acetaminophen [Vicodin 1 each PO Q6HR PRN #12 tablet 03/26/17 01/14/18 5-300 mg Tablet] Nitrofurantoin Monohyd/M-Cryst 100 mg PO BID #10 capsule 11/16/17 01/14/18 [Macrobid 100 mg Capsule] Sulfamethox/Trimeth 800/160 1 each PO BID #14 tablet 01/14/18 [Bactrim Ds 800/160] cephALEXin [Keflex] 500 mg PO QID 01/14/18 01/14/18 Clindamycin HCl [Clindamycin 300MG 300 mg PO Q6H 7 Days capsule 01/24/18 CAP] Amox/Clav 875/125 [Augmentin] 1 each PO Q12H #19 tablet 01/30/18 HYDROcod/ACETAM 5/325 [[place] 5/325] 1 - 2 tablet PO Q6H PRN #14 tablet 12/13/21 - Allergies Allergies/Adverse Reactions: Allergies Allergy/AdvReac Type Severity Reaction Status Date / Time vancomycin Allergy Hives Verified 12/13/21 12:51 - Social History Does the pt smoke?: No Smoking Status: Never smoker Does the pt drink ETOH?: No Does the pt have substance abuse?: No - Immunizations Immunizations are current?: Yes Immunizations: TDAP >10years/unknown - POLST Patient has POLST: Yes POLST Status: DNR PD ED PE NORMAL - Vitals Vital signs reviewed: Yes - General General: Alert and oriented X 3, No acute distress, Well developed/nourished - HEENT HEENT: Atraumatic, PERRL, EOMI, Moist mucous membranes - Neck Neck: Supple, no meningeal sign - Cardiac Cardiac: Strong equal pulses - Respiratory Respiratory: No respiratory distress - Derm Derm: Normal color, Warm and dry, No rash - Extremities Extremities: No deformity, Other (Patient has obese lower extremities. Mild edema of her right knee with abrasion. No instability. No clicking or popping. No palpable deformity.) - Neuro Neuro: Alert and oriented X 3 - Psych Psych: Normal mood, Normal affect Results - Vitals Vitals: Vital Signs - 24 hr 12/13/21 12/13/21 12:47 14:57 Temperature 36.0 C L 36.0 C L Heart Rate 95 90 Respiratory 16 20 Rate Blood Pressure 153/106 H 144/91 H O2 Saturation 98 98 Oxygen O2 Source [With Activity] Nasal cannula O2 Source [Without Activity] Room air O2 Source Room air - Rads (name of study) Right knee x-ray Radiology: Final report received, EMP read indepedently, See rad report (Calcification versus avulsion fracture) PD MEDICAL DECISION MAKING - ED course Complexity details: reviewed old records, reviewed results, re-evaluated patient, considered differential, d/w patient ED course: I discussed with the patient that her knee x-ray showed a cortical calcification versus avulsion fracture. The patient is not point tender over the medial femoral condyle and I am not certain that she actually has a fracture. However, she has been placed in an articulating knee brace with a small range of motion so that she can still ambulate with her walker without tripping. She will follow-up with her primary care physician for repeat x-ray in approximately one week. I have reviewed her studies from several days ago which included CTs of the head and neck both of which were unremarkable. The patient has been given a dose of Vicodin here in the emergency department and has been given a small prescription for at home as well. We have discussed the usual indications for return. Departure - Departure Disposition: 01 Home, Self Care Clinical Impression: Avulsion fracture Knee pain Qualifiers: Chronicity: acute Laterality: right Qualified Code(s): M25.561 - Pain in right knee Condition: Stable Instructions: ED Fx Knee Prescriptions: HYDROcod/ACETAM 5/325 [[place] 5/325] 1 - 2 tablet PO Q6H PRN #14 tablet PRN Reason: Pain Comments: Your x-ray shows a possible avulsion fracture on the edge of your right thigh bone at the knee. This is where a superficial, tiny piece of bone pulled away from the main body of the bone, and due to a sudden stress of pulling, usually from a ligament or tendon. However, the radiologist also said this just could be some extra calcium buildup on the bone, so it is not clear whether there is actually a fracture. For now, we will have you wear the leg brace and continue to walk with your walker. You should follow-up with your primary doctor in about a week to undergo repeat x-rays to determine whether you should continue to wear the brace. You may take the pain medications as needed. Your pain medication prescription has been electronically transmitted to [facility], as you have requested.
[2021-12-13] MEDS ORDERED: HYDROcod/ACETAM 5/325 MG TABLET PO STA (15:51)
== END 2021-12-13 16:15 | disposition home or self-care (01) ==
LOC: ED 12:36
DX: S42.461A Displaced fracture of medial condyle of right humerus, initial encounter for closed fracture (principal); W19.XXXA Unspecified fall, initial encounter; Z66 Do not resuscitate
CPT/HCPCS: 73564; 99283; 99284; A9270

== ENCOUNTER 2021-12-16 15:36 | Outpatient (CLI) | payer MEDICARE, MEDICAID ==
--- NOTE | 2021-12-16 17:01 | MRI Report ---
PROCEDURE: Brain W/O INDICATIONS: HEADACHE, BLURRED VISION TECHNIQUE: Noncontrast axial T1 spin echo, axial T2 fast spin echo, sagittal and axial FLAIR, coronal T2 fast sp in echo, axial gradient echo, axial diffusion and ADC through the brain. COMPARISON: CT head and CT cervical spine dated 12/10/2021. FINDINGS: Image quality: Excellent. CSF Spaces: Basal cisterns are patent. No extra-axial fluid collections. Ventricles are normal in size and shape. Brain: No intracranial masses or hemorrhage. Loza/white matter interface is normal. Brainstem appe ars normal. Diffusion-weighted images demonstrate no acute ischemic insult. Multiple chronic infarct s including a posterior right infarct involving the deep white matter and extending to the cortical s urface, as well as a left small frontotemporal infarct which involves the deep white matter extending to the cortical surface, as well as a small cortical right occipital infarct. There is associated en cephalomalacia. Mild small vessel ischemic change. Normal intravascular flow voids are present. Skull and face: Calvarium has normal marrow signal. Orbits appear normal. Sinuses: Sinuses and mastoids are clear. Upper cervical spine: On the sagittal STIR sequence, the upper cervical region is visualized, and the re is canal stenosis at C4. IMPRESSION: 1. Multiple old small cortical infarcts. Mild small vessel ischemic change. 2. No evidence acute stroke, hemorrhage, or mass. 3. Note is made of cervical canal stenosis at the level of C4. Reviewed by: Oscar Hamilton MD on 12/16/2021 5:00 PM PDT Approved by: Oscar Hamilton MD on 12/16/2021 5:00 PM PDT Station ID: [id number]
== END 2021-12-16 15:37 | disposition home or self-care (01) ==
LOC: DI 15:36
PROVIDERS: ATTEND Physician Assistant
DX: G44.309 Post-traumatic headache, unspecified, not intractable (principal); H53.8 Other visual disturbances; I67.82 Cerebral ischemia; M48.02 Spinal stenosis, cervical region

== ENCOUNTER 2021-12-21 13:53 | Outpatient (CLI) | payer MEDICARE, MEDICAID ==
--- NOTE | 2021-12-21 16:10 | XRAY Report ---
PROCEDURE: Knee 4 View RT INDICATIONS: R KNEE PX TECHNIQUE: 4 views of the right knee(s) were acquired. COMPARISON: None. FINDINGS: Bones: No acute fractures or dislocations. Exophytic ossific/calcific density involving the medial a spect of the medial femoral condyle. No suspicious bony lesions. Soft tissues: Small joint effusion. No suspicious soft tissue calcifications. IMPRESSION: 1. Findings suggestive of remote medial collateral ligament injury. This could be further assessed wi th MRI, if clinically indicated. 2. Knee joint effusion. 3. No acute fracture. No osseous lesion. If symptoms and/or clinical suspicion for pathology continue , further assessment with repeat plain films, or advanced imaging (e.g., CT, MRI, or bone scan) is re commended for further assessment. Reviewed by: Vel Flores MD on 12/21/2021 4:09 PM PDT Approved by: Vel Flores MD on 12/21/2021 4:09 PM PDT Station ID: [id number]
== END 2021-12-21 13:54 | disposition home or self-care (01) ==
LOC: DI.N 13:53
PROVIDERS: ATTEND Physician Assistant
DX: M25.461 Effusion, right knee (principal); M25.561 Pain in right knee

== ENCOUNTER 2022-01-10 08:00 | Outpatient (CLI) | payer MEDICARE, MEDICAID ==
[2022-01-10 19:05] LABS: FECAL OCCULT BLOOD (FIT) NEGATIVE (NEGATIVE)
== END 2022-01-10 23:59 | disposition home or self-care (01) ==
LOC: LAB.N 08:00
PROVIDERS: ATTEND Internal Medicine
DX: K52.9 Noninfective gastroenteritis and colitis, unspecified (principal)
CPT/HCPCS: 81599; 82274; 83993; 87045; 87329; 87427; 87449; 87493

== ENCOUNTER 2022-01-15 08:00 | Outpatient (CLI) | payer MEDICARE, MEDICAID | END 2022-01-15 08:01 | disposition home or self-care (01) | LOC: LAB.N 08:00 | PROVIDERS: ATTEND Internal Medicine | DX: K52.9 Noninfective gastroenteritis and colitis, unspecified (principal) | CPT/HCPCS: 81599; 83993; 87045; 87427; 87449; 87493 ==

== ENCOUNTER 2022-04-08 10:23 | Outpatient (CLI) | payer MEDICARE, MEDICAID ==
[2022-04-08 12:14] LABS: BASOPHILS # (AUTO) 0.1 10^3/uL (0.0-0.1); BASOPHILS % (AUTO) 0.6 %; EOSINOPHILS # (AUTO) 0.1 10^3/uL (0.0-0.7); EOSINOPHILS % (AUTO) 1.3 %; HGB - HEMOGLOBIN 12.9 g/dL (12.0-16.0); LYMPHOCYTES # (AUTO) 1.4 10^3/uL (1.5-3.5); LYMPHOCYTES % (AUTO) 18.2 %; MEAN CORPUSCULAR HEMOGLOBIN 30.1 pg (27.0-31.0); MEAN CORPUSCULAR HGB CONC 31.5 g/dL (32.0-36.0); MEAN CORPUSCULAR VOLUME 95.8 fL (81.0-99.0); MEAN PLATELET VOLUME 9.6 fL (7.9-10.8); MONOCYTES # (AUTO) 0.6 10^3/uL (0.0-1.0); NEUTROPHILS # (AUTO) 5.6 10^3/uL (1.5-6.6); NEUTROPHILS % (AUTO) 71.6 %; PLT - PLATELET COUNT 285 10^3/uL (130-450); RED BLOOD COUNT 4.28 10^6/uL (4.20-5.40); RED CELL DISTRIBUTION WIDTH 14.8 % (12.0-15.0); WHITE BLOOD COUNT 7.8 x10^3/uL (4.8-10.8)
[2022-04-08 12:25] LABS: ALBUMIN 3.7 g/dL (3.2-5.5); ALBUMIN/GLOBULIN RATIO 0.9 (1.0-2.2); BILIRUBIN,TOTAL 0.4 mg/dL (0.2-1.0); CALCIUM 10.1 mg/dL (8.5-10.3); CREATININE 1.1 mg/dL (0.4-1.0); POTASSIUM 5.2 mmol/L (3.5-5.0); TOTAL PROTEIN 7.6 g/dL (6.7-8.2)
[2022-04-08 12:53] LABS: ESTIMATED AVERAGE GLUCOSE 128 mg/dL (70-100); HEMOGLOBIN A1c% 6.1 % (4.27-6.07)
== END 2022-04-08 10:24 | disposition home or self-care (01) ==
LOC: LAB.N 10:23
PROVIDERS: ATTEND Internal Medicine
DX: E11.42 Type 2 diabetes mellitus with diabetic polyneuropathy (principal); K52.9 Noninfective gastroenteritis and colitis, unspecified
CPT/HCPCS: 36415; 80053; 83036; 85025

== ENCOUNTER → 2022-06-28 | Outpatient (CLI) | payer MEDICARE, MEDICAID | END | disposition short-term general hospital (02) | LOC: EMS 19:49 | DX: R19.7 Diarrhea, unspecified (principal); R53.1 Weakness; R42 Dizziness and giddiness | CPT/HCPCS: A0425; A0427 ==

== ENCOUNTER 2022-12-27 19:38 | Outpatient (CLI) | payer MEDICARE, MEDICAID | END 2022-12-27 23:59 | disposition EMS.NT | LOC: EMS 19:38 | DX: Z03.89 Encounter for observation for other suspected diseases and conditions ruled out (principal) ==

== ENCOUNTER 2023-02-10 03:01 | Outpatient (CLI) | payer MEDICARE, MEDICAID | END 2023-02-10 03:02 | disposition short-term general hospital (02) | LOC: EMS 03:01 | DX: M79.622 Pain in left upper arm (principal); R09.89 Other specified symptoms and signs involving the circulatory and respiratory systems; R05.9 Cough, unspecified; R06.02 Shortness of breath | CPT/HCPCS: A0425; A0427; A0888 ==

== ENCOUNTER 2023-03-09 10:25 | Outpatient (CLI) | payer MEDICARE, MEDICAID | END 2023-03-09 23:59 | disposition critical access hospital (66) | LOC: EMS 10:25 | DX: R53.1 Weakness (principal); R47.81 Slurred speech; R29.810 Facial weakness; R06.00 Dyspnea, unspecified; R06.2 Wheezing; R00.0 Tachycardia, unspecified | CPT/HCPCS: A0425; A0429 ==

== ENCOUNTER 2023-03-09 10:46 | Inpatient (IN) | payer MEDICARE, MEDICAID ==
[2023-03-09] MEDS ORDERED: IPRATROPIUM/ALBUTEROL 3 ML NEB INH STA (11:01)
[2023-03-09] MEDS ORDERED: SODIUM CHLORIDE 0.9% 1,000 ML IV STA (11:02)
[2023-03-09 11:14] LABS: BASOPHILS % (AUTO) 0.4 %; EOSINOPHILS # (AUTO) 0.1 10^3/uL (0.0-0.7); EOSINOPHILS % (AUTO) 0.5 %; HCT - HEMATOCRIT 42.4 % (37.0-47.0); HGB - HEMOGLOBIN 13.2 g/dL (12.0-16.0); LYMPHOCYTES # (AUTO) 0.5 10^3/uL (1.5-3.5); LYMPHOCYTES % (AUTO) 4.4 %; MEAN CORPUSCULAR HEMOGLOBIN 30.8 pg (27.0-31.0); MEAN CORPUSCULAR HGB CONC 31.1 g/dL (32.0-36.0); MEAN CORPUSCULAR VOLUME 99.1 fL (81.0-99.0); MEAN PLATELET VOLUME 9.3 fL (7.9-10.8); MONOCYTES # (AUTO) 0.6 10^3/uL (0.0-1.0); MONOCYTES % (AUTO) 5.1 %; NEUTROPHILS # (AUTO) 9.7 10^3/uL (1.5-6.6); NEUTROPHILS % (AUTO) 89.2 %; PLT - PLATELET COUNT 262 10^3/uL (130-450); RED BLOOD COUNT 4.28 10^6/uL (4.20-5.40); RED CELL DISTRIBUTION WIDTH 13.2 % (12.0-15.0); WHITE BLOOD COUNT 10.8 x10^3/uL (4.8-10.8)
[2023-03-09 11:20] LABS: ALBUMIN 3.7 g/dL (3.2-5.5); ALBUMIN/GLOBULIN RATIO 0.8 (1.0-2.2); BILIRUBIN,TOTAL 0.4 mg/dL (0.2-1.0); CALCIUM 9.7 mg/dL (8.5-10.3); CREATININE 1.6 mg/dL (0.4-1.0); POTASSIUM 4.9 mmol/L (3.5-5.0); TOTAL PROTEIN 8.2 g/dL (6.7-8.2)
--- NOTE | 2023-03-09 12:04 | CT Report ---
PROCEDURE: HEAD WO INDICATIONS: fall, head injury TECHNIQUE: Noncontrast 4.5 mm thick angled axial sections acquired from the foramen magnum to the vertex. For r adiation dose reduction, the following was used: automated exposure control, adjustment of mA and/or kV according to patient size. COMPARISON: MR 12/16/2021. FINDINGS: Image quality: Suboptimal due to motion artifact. CSF spaces: Basal cisterns are patent. No extra-axial fluid collections. Ventricles are normal in size and shape. Brain: No midline shift. No intracranial masses or hemorrhage. Loza-white matter interface is norm al. Periventricular white matter hypoattenuation, presumably small vessel ischemic disease. Remote bi lateral MCA territory infarcts, with associated septal malacia. Skull and face: Calvarium and visualized facial bones are intact, without suspicious lesions. Hyper ostosis frontalis interna. Sinuses: Visualized sinuses and mastoids are clear. IMPRESSION: No acute intracranial pathology Reviewed by: Cole Pérez on 03/09/2023 12:03 PM PDT Approved by: Cole Pérez on 03/09/2023 12:03 PM PDT Station ID: [id number]
--- NOTE | 2023-03-09 12:25 | ED Physician Documentation ---
History of Present Illness - Stated complaint Stated Complaint: GLF - Chief complaint Chief Complaint: Neuro - History obtained from History obtained from: Patient, EMS - History of Present Illness Timing: Today Pain level max: 2 Pain level now: 2 - Additonal information Additional information: Patient is a 72-year-old female who presents to the emergency department stating that she rolled off of her bed today and struck her head. The patient is on blood thinners. She does complain of a headache, feels like a typical migraine. Usually with her migraine headaches she has some difficulty with speech and often will have right-sided weakness. She is having some expressive aphasia here and some weakness on the right side. Her last known normal was yesterday at about 10 PM. No fevers. No chills. Patient does complain of a cough. She has audible wheezing as well. She is hypoxic down to the low 80s. She does not use oxygen at home. She has 3 caregivers that take care of her at home. No neck or back pain. No loss of consciousness. Review of Systems Constitutional: denies: Fever, Chills Ears: denies: Ear pain Nose: denies: Rhinorrhea / runny nose, Congestion Throat: denies: Sore throat Cardiac: denies: Chest pain / pressure, Palpitations Respiratory: reports: Dyspnea, Cough, Wheezing GI: denies: Nausea, Vomiting, Diarrhea Skin: denies: Rash Musculoskeletal: denies: Back pain Neurologic: denies: Confused, LOC PD PAST MEDICAL HISTORY - Past Medical History Past Medical History: Yes Cardiovascular: Hypertension, Atrial fibrillation Respiratory: COPD, Shortness of breath, CPAP use Neuro: CVA, TIA Endocrine/Autoimmune: Type 2 diabetes GI: Hiatal hernia, Cholelithiasis TRAINING AND DOCUMENTATION SPECIALIST: None : Retention HEENT: Other Psych: Depression Musculoskeletal: None Derm: None - Past Surgical History Past Surgical History: Yes General: Cholecystectomy, Appendectomy, Bowel surgery, Hiatal hernia repair, Colonoscopy Ortho: Other /TRAINING AND DOCUMENTATION SPECIALIST: section HEENT: Tonsil/Adenoidectomy - Present Medications Home Medications: Ambulatory Orders Medication Instructions Recorded Confirmed Clopidogrel [Plavix] 75 mg PO DAILY 01/06/14 01/14/18 Sertraline HCl [Zoloft] 150 mg PO QDBREAKFAST 12/03/14 01/14/18 Bupropion HCl [Wellbutrin Sr] 300 mg PO DAILY 03/22/16 01/14/18 metFORMIN [Glucophage] 1,000 mg PO BID 03/22/16 01/14/18 Albuterol Sulfate [Proventil Hfa 2 puffs IH Q4H PRN 03/09/23 Inhaler] Gabapentin [Neurontin] 800 mg PO TID 03/09/23 Irbesartan [Avapro] 300 mg PO DAILY 03/09/23 Prazosin HCl [Minipress] 5 mg PO QPM 03/09/23 - Allergies Allergies/Adverse Reactions: Allergies Allergy/AdvReac Type Severity Reaction Status Date / Time vancomycin Allergy Hives Verified 12/13/21 12:51 - Social History Does the pt smoke?: No Smoking Status: Never smoker Does the pt drink ETOH?: No Does the pt have substance abuse?: No - Immunizations Immunizations are current?: Yes Immunizations: TDAP >10years/unknown - POLST Patient has POLST: Yes POLST Status: DNR PD ED PE NORMAL - Vitals Vital signs reviewed: Yes - General General: Alert and oriented X 3, No acute distress, Well developed/nourished - HEENT HEENT: Atraumatic, PERRL, EOMI, Ears normal, Moist mucous membranes, Pharynx benign - Neck Neck: Supple, no meningeal sign, No bony TTP - Cardiac Cardiac: Other (Tachycardia) - Respiratory Respiratory: Other (Diminished breath sounds and wheezing bilaterally) - Abdomen Abdomen: Soft, Non tender, Non distended - Derm Derm: Warm and dry, No rash - Neuro Neuro: Alert and oriented X 3, Other (Mild expressive aphasia. Mild right-sided weakness) Eye Opening: Spontaneous Motor: Obeys Commands Verbal: Oriented GCS Score: 15 - Psych Psych: Normal mood, Normal affect Results - Vitals Vitals: Vital Signs - 24 hr 03/09/23 03/09/23 03/09/23 10:55 11:38 11:46 Temperature 37 C Heart Rate 122 H 119 H 121 H Respiratory 24 21 22 Rate Blood Pressure 184/97 H 152/105 H O2 Saturation 89 L 98 If not protocol 4 4 : Oxygen Flow, liters/minute 03/09/23 03/09/23 03/09/23 12:03 12:30 13:00 Temperature 36.5 C 36.5 C Heart Rate 128 H 120 H 126 H Respiratory 24 20 18 Rate Blood Pressure 180/116 H 180/90 H 188/85 H O2 Saturation 96 96 98 If not protocol 4 4 4 : Oxygen Flow, liters/minute 03/09/23 03/09/23 03/09/23 13:30 14:00 14:30 Temperature 36.8 C Heart Rate 122 H 121 H 120 H Respiratory 18 18 18 Rate Blood Pressure 196/110 H 182/100 H 196/100 H O2 Saturation 95 96 96 If not protocol 4 4 4 : Oxygen Flow, liters/minute 03/09/23 03/09/23 15:00 15:30 Temperature 36.8 C 36.8 C Heart Rate 120 H 123 H Respiratory 18 18 Rate Blood Pressure 190/100 H 186/100 H O2 Saturation 96 93 If not protocol 4 4 : Oxygen Flow, liters/minute Oxygen O2 Source [With Activity] Nasal cannula O2 Source [Without Activity] Room air O2 Source Nasal cannula - Labs Labs: Laboratory Tests 03/09/23 03/09/23 03/09/23 10:55 10:55 15:00 WBC 10.8 RBC 4.28 Hgb 13.2 Hct 42.4 MCV 99.1 H MCH 30.8 MCHC 31.1 L RDW 13.2 Plt Count 262 MPV 9.3 Neut # (Auto) 9.7 H Lymph # (Auto) 0.5 L [place] # (Auto) 0.6 Eos # (Auto) 0.1 Baso # (Auto) 0.0 Absolute Nucleated RBC 0.00 Nucleated RBC % 0.0 Sodium 138 Potassium 4.9 Chloride 105 Carbon Dioxide 28 Anion Gap 5.0 L BUN 33 H Creatinine 1.6 H Estimated GFR (MDRD) 32 L Glucose 133 H Calcium 9.7 Total Bilirubin 0.4 AST 18 ALT 16 Alkaline Phosphatase 82 Total Protein 8.2 Albumin 3.7 Globulin 4.5 H Albumin/Globulin Ratio 0.8 L Nasal Adenovirus (PCR) NOT DETECTED Nasal B. parapertussis DNA (PCR) NOT DETECTED Nasal Coronavir 229E PCR NOT DETECTED Nasal Coronavir HKU1 PCR NOT DETECTED Nasal Coronavir NL63 PCR NOT DETECTED Nasal Coronavir OC43 PCR NOT DETECTED Nasal Enterovir/Rhinovir PCR NOT DETECTED Nasal Influenza B PCR NOT DETECTED Nasal Influenza A PCR NOT DETECTED Nasal Parainfluen 1 PCR NOT DETECTED Nasal Parainfluen 2 PCR NOT DETECTED Nasal Parainfluen 3 PCR NOT DETECTED Nasal Parainfluen 4 PCR NOT DETECTED Nasal RSV (PCR) NOT DETECTED Nasal B.pertussis DNA PCR NOT DETECTED Nasal C.pneumoniae (PCR) NOT DETECTED Ubaldo Human Metapneumo PCR NOT DETECTED Nasal M.pneumoniae (PCR) NOT DETECTED Nasal SARS-CoV-2 (PCR) NOT DETECTED - Rads (name of study) Head CT Relevant Findings:: Final report received, See rad report Chest x-ray Relevant Findings:: Final report received, See rad report PD Medical Decision Making - ED course Complexity details: reviewed results, re-evaluated patient, considered differential, d/w patient, d/w family (daughter) ED course: 72-year-old female with head trauma. She is anticoagulated. She had her usual migraine headache. Given Toradol after negative head CT. Headache resolved along with the stuttering speech and right-sided weakness, this is typical for her complex migraines. No evidence of new stroke at this time. No evidence of intracranial hemorrhage. No skull fracture. No facial fracture. She was maintained on 4 L of oxygen to keep her O2 sat above 90%. She was down to the low 80s on room air. Pain well controlled. Chest x-ray appears consistent with bilateral pneumonia. We will place on IV antibiotics and admit the patient for further care. Patient was given nebulizer treatments here as well. Discussed the case with Dr. Golden, hospitalist who accepts This document was made in part using voice recognition software. While efforts are made to proofread this document, sound alike and grammatical errors may occur. Departure - Departure Disposition: 66 [facility] DC/Xfer Clinical Impression: Hypoxia, Dehydration, Acute renal insufficiency Pneumonia Qualifiers: Pneumonia type: due to unspecified organism Laterality: bilateral Lung location: unspecified part of lung Qualified Code(s): J18.9 - Pneumonia, unspecified organism NIHSS - Time Time: 11:05 - Level of Consciousness Level of consciousness: (0) Alert, Keenly responsive LOC Questions: (0) Answers both Q's correct LOC Commands: (0) Performs both correctly - Gaze Best Gaze: (0) Normal - Visual Visual: (0) No loss - Facial Palsy Facial Palsy: (0) Normal, symmetrical movement - Motor Arms (both separate) Motor Arm (right): (1) Drift Motor Arm (left): (0) No drift - Motor Legs (both separate) Motor Leg (right): (1) Drift Motor Leg (left): (0) No drift - Limb Ataxia Limb Ataxia: (0) Absent - Sensory Sensory: (0) Normal - Best Language Best Language: (1) [id number] - Dysarthria Dysarthria: (0) Normal - Extinction and Inattention (formally neg Extinction and inattention: (0) No abnormality - Total Score/Results Total Score/Result: 3
[2023-03-09] MEDS ORDERED: KETOROLAC 30 MG/ML VIAL IVP STA (12:32)
--- NOTE | 2023-03-09 13:11 | XRAY Report ---
PROCEDURE: Chest 1 View X-Ray INDICATIONS: cough, dyspnea TECHNIQUE: One view of the chest was acquired. COMPARISON: None. FINDINGS: Surgical changes and devices: None. Lungs and pleura: Perihilar airspace opacities are seen greatest in the right upper lung field. No p neumothorax or pleural effusion. Mediastinum: Mediastinal contours appear normal. Heart size is at the upper limits of normal. Bones and chest wall: No suspicious bony lesions. Overlying soft tissues appear unremarkable. IMPRESSION: Bilateral parahilar airspace opacities, greater in the right upper lung field consistent with a diffuse pneumonia. Reviewed by: Sujit Wooten on 03/09/2023 1:10 PM PDT Approved by: Sujit Wooten on 03/09/2023 1:10 PM PDT Station ID: [id number]
[2023-03-09] MEDS ORDERED: AZITHROMYCIN 250 MG TABLET PO STA (13:17)
[2023-03-09] MEDS ORDERED: cefTRIAXone 1 GM VIAL IVP STA (13:17)
[2023-03-09] MEDS ORDERED: SODIUM CHLORIDE FLUSH 0.9% 10 ML SYRINGE IVP PRN (15:17)
[2023-03-09] MEDS ORDERED: ACETAMINOPHEN 325 MG TABLET PO PRN (15:17)
[2023-03-09] MEDS ORDERED: ONDANSETRON ODT 4 MG TABLET TL PRN (15:17)
--- NOTE | 2023-03-09 15:37 | HISTORY & PHYSICAL EXAMINATION ---
Chief Complaint - Chief Complaint Chief Complaint: Ground-level fall with shortness of breath and cough History of Present Illness - Admitted From Admitted From:: Emergency room - History Obtained From Records Reviewed: yes History obtained from: ER MD,patient - History of Present Illness HPI Comment/Other: This is a 72-year-old female who lives at home but does have caregivers come in several times per week. She has a history of COPD hypertension atrial fibrillation type 2 diabetes morbid obesity who presents with ground-level fall. She has admitted to no fevers but does admit to coughing and she was found to be hypoxic in the field and placed on O2 supplementation via nasal cannula. CT of head without contrast revealed no acute abnormalities and chest x-ray showed bilateral perihilar airspace opacities greater in the right upper lung field consistent with a diffuse pneumonia. She was started on IV Rocephin and IV azithromycin in the emergency room. Respiratory PCR is pending at the time of this dictation. History - Past Medical History Cardiovascular: reports: Hypertension, Atrial fibrillation Respiratory: reports: COPD, Shortness of breath, CPAP use Neuro: reports: CVA, TIA Endocrine/Autoimmune: reports: Type 2 diabetes GI: reports: Hiatal hernia, Cholelithiasis ADMINISTRATIVE ACCOUNTANT: reports: None : reports: Retention HEENT: reports: Other Psych: reports: Depression Musculoskeletal: reports: None Derm: reports: None MRSA Hx?: No - Past Surgical History General: reports: Cholecystectomy, Appendectomy, Bowel surgery, Hiatal hernia repair, Colonoscopy Ortho: reports: Other /ADMINISTRATIVE ACCOUNTANT: reports: section HEENT: reports: Tonsil/Adenoidectomy - POLST Patient has POLST: Yes POLST Status: DNR Meds/Allgy - Home Medications Home Medications: Ambulatory Orders Medication Instructions Recorded Confirmed Clopidogrel [Plavix] 75 mg PO DAILY 01/06/14 01/14/18 Sertraline HCl [Zoloft] 100 mg PO QDBREAKFAST 12/03/14 01/14/18 Bupropion HCl [Wellbutrin Sr] 300 mg PO DAILY 03/22/16 01/14/18 metFORMIN [Glucophage] 500 mg PO BID 03/22/16 01/14/18 Albuterol Sulfate [Proventil Hfa 2 puffs IH Q4H PRN 03/09/23 Inhaler] Gabapentin [Neurontin] 800 mg PO TID 03/09/23 Irbesartan [Avapro] 300 mg PO DAILY 03/09/23 Prazosin HCl [Minipress] 5 mg PO QPM 03/09/23 - Allergies Allergies/Adverse Reactions: Allergies Allergy/AdvReac Type Severity Reaction Status Date / Time vancomycin Allergy Hives Verified 12/13/21 12:51 Review of Systems - Other Findings Other Findings: All systems are reviewed and are negative except for as in HPI. Of note she does use a walker at home to get around. Exam - Vital Signs Reviewed Vital Signs: Yes Vital Signs: Vital Signs x48h Temp Pulse Resp BP Pulse Ox O2 Flow Rate 03/09/23 15:30 36.8 C 123 H 18 186/100 H 93 4 03/09/23 15:00 36.8 C 120 H 18 190/100 H 96 4 03/09/23 14:30 120 H 18 196/100 H 96 4 03/09/23 14:00 36.8 C 121 H 18 182/100 H 96 4 03/09/23 13:30 122 H 18 196/110 H 95 4 03/09/23 13:00 36.5 C 126 H 18 188/85 H 98 4 03/09/23 12:30 36.5 C 120 H 20 180/90 H 96 4 03/09/23 12:03 128 H 24 180/116 H 96 4 03/09/23 11:46 121 H 22 152/105 H 98 4 03/09/23 11:38 119 H 21 4 03/09/23 10:55 37 C 122 H 24 184/97 H 89 L - Physical Exam General Appearance: positive: No acute distress, Alert Eyes Bilateral: positive: Normal inspection Neck: positive: Nml inspection Respiratory: positive: Other (Decreased breath sounds at her bases) Cardiovascular: positive: Regular rate & rhythm, No murmur Abdomen: positive: Non-tender Skin: positive: No rash Extremities: positive: Non-tender Neurologic/Psychiatric: positive: Oriented x3 (Morbidly obese) Conclusion/Plan - Problem List (1) Pneumonia Conclusion/Plan: Rocephin 2 g IV every 24 hours along with azithromycin 500 mg IV daily x5 days. Await for respiratory PCR. Sputum studies ordered. Qualifiers: Pneumonia type: due to unspecified organism Laterality: bilateral Lung location: unspecified part of lung Qualified Code(s): J18.9 - Pneumonia, unspecified organism (2) Acute respiratory failure with hypoxia Conclusion/Plan: Patient is on supplemental oxygen to maintain O2 sats greater than or equal to 92%. (3) T2DM (type 2 diabetes mellitus) Conclusion/Plan: Check hemoglobin A1c. Put her on insulin protocol. Med rec needs to be reconciled by pharmacy/nursing. (4) Morbid obesity with BMI of 40.0-44.9, adult Conclusion/Plan: Nursing protocol for bariatric precautions and reviewed importance of weight loss - Lab Results Fish Bones: 03/09/23 10:55 03/09/23 10:55
[2023-03-09 15:53] LABS: B. PARAPERTUSSIS- RESP PCR PAN NOT DETECTED; B. PERTUSSIS- RESP PCR PANEL NOT DETECTED; C. PNEUMONIAE- RESP PCR PANEL NOT DETECTED; CORONAVIRUS 229E-RESP PCR NOT DETECTED; CORONAVIRUS HKU1-RESP PCR NOT DETECTED; CORONAVIRUS NL63-RESP PCR NOT DETECTED; CORONAVIRUS OC43-RESP PCR NOT DETECTED; HUMAN METAPNEUMOVIRUS NOT DETECTED; INFLUENZA A- RESP PCR PANEL NOT DETECTED; INFLUENZA B - RESP PCR PANEL NOT DETECTED; M. PNEUMONIAE- RESP PCR PANEL NOT DETECTED; PARAINFLUENZA VIRUS 1 NOT DETECTED; PARAINFLUENZA VIRUS 2 NOT DETECTED; PARAINFLUENZA VIRUS 3 NOT DETECTED; PARAINFLUENZA VIRUS 4 NOT DETECTED; RHINOVIRUS/ENTEROVIRUS NOT DETECTED; RSV- RESP PCR PANEL NOT DETECTED; SARS-CoV-2 -RESP PCR PANEL NOT DETECTED
[2023-03-09] MEDS: INSULIN LISPRO 300 UNIT/3 ML PEN SUBQ SCH ×2 (17:31→21:09)
[2023-03-09] MEDS: HYDROcod/ACETAM 5/325 MG TABLET PO PRN ×2 (18:27→23:53)
[2023-03-09] MEDS: SODIUM CHLORIDE FLUSH 0.9% 10 ML SYRINGE IVP SCH (18:28)
[2023-03-09 20:48] LABS: ESTIMATED AVERAGE GLUCOSE 120 mg/dL (70-100); HEMOGLOBIN A1c% 5.8 % (4.27-6.07)
[2023-03-09] MEDS: HEPARIN 5,000 UNIT/ML VIAL SUBQ SCH (21:05)
[2023-03-09] MEDS: NYSTATIN POWDER 15 GM TOP SCH (21:09)
[2023-03-10] MEDS: SODIUM CHLORIDE FLUSH 0.9% 10 ML SYRINGE IVP SCH ×3 (01:13→16:16)
[2023-03-10] MEDS: HYDROcod/ACETAM 5/325 MG TABLET PO PRN ×2 (05:57→16:14)
[2023-03-10 06:06] LABS: BASOPHILS % (AUTO) 0.3 %; EOSINOPHILS # (AUTO) 0.3 10^3/uL (0.0-0.7); EOSINOPHILS % (AUTO) 2.4 %; HCT - HEMATOCRIT 38.6 % (37.0-47.0); LYMPHOCYTES # (AUTO) 1.8 10^3/uL (1.5-3.5); LYMPHOCYTES % (AUTO) 14.5 %; MEAN CORPUSCULAR HEMOGLOBIN 31.4 pg (27.0-31.0); MEAN CORPUSCULAR HGB CONC 31.1 g/dL (32.0-36.0); MEAN PLATELET VOLUME 9.5 fL (7.9-10.8); MONOCYTES # (AUTO) 0.8 10^3/uL (0.0-1.0); MONOCYTES % (AUTO) 6.4 %; NEUTROPHILS # (AUTO) 9.2 10^3/uL (1.5-6.6); NEUTROPHILS % (AUTO) 76.1 %; PLT - PLATELET COUNT 203 10^3/uL (130-450); RED BLOOD COUNT 3.82 10^6/uL (4.20-5.40); RED CELL DISTRIBUTION WIDTH 13.1 % (12.0-15.0); WHITE BLOOD COUNT 12.1 x10^3/uL (4.8-10.8)
[2023-03-10 06:18] LABS: CALCIUM 8.8 mg/dL (8.5-10.3); POTASSIUM 4.6 mmol/L (3.5-5.0)
[2023-03-10] MEDS: INSULIN LISPRO 300 UNIT/3 ML PEN SUBQ SCH ×4 (07:55→20:32)
[2023-03-10 08:22] LABS: FOLATE 10.27 ng/mL (5.90 - >24.8)
[2023-03-10] MEDS ORDERED: cefTRIAXone 2 GM VIAL ONE (09:24)
[2023-03-10] MEDS: cefTRIAXone 2 GM in SODIUM CHLORIDE 0.9% MINIBAG 100 ML IV SCH (09:57)
[2023-03-10] MEDS: HEPARIN 5,000 UNIT/ML VIAL SUBQ SCH ×2 (10:16→20:29)
[2023-03-10] MEDS: NYSTATIN POWDER 15 GM TOP SCH ×2 (10:18→20:32)
[2023-03-10] MEDS: AZITHROMYCIN INJ 500 MG in SODIUM CHLORIDE 0.9% 250 ML IV SCH (10:39)
--- NOTE | 2023-03-10 10:59 | PHARMACY PROGRESS NOTE ---
- Best Possible Medication History Admit Date and Time: 03/09/23 1517 Processed by: Pharmacy Medication History completed: Yes Patient Interview: Completed Secondary Source(s): Pharmacy records, Insurance records As the person ultimately responsible for medication therapy, providers are able to order a medication from an existing home medication list in [facility] via the "Reconcile Routine" prior to Confirmation of that medication by support engineer. Such practice is discouraged except when the physician, in their clinical judgment, deems that a medical need exists for a medication without regard to previous use.
[2023-03-10] MEDS ORDERED: GABAPENTIN 400 MG CAPSULE PO PRN (13:25)
[2023-03-10] MEDS ORDERED: SUMAtriptan 6 MG/0.5 ML VIAL SUBQ PRN (14:00)
[2023-03-10] MEDS: IPRATROPIUM 0.2 MG/ML NEB INH SCH ×2 (15:16→19:16)
--- NOTE | 2023-03-10 15:39 | PROVIDER PROGRESS NOTE ---
Assessment/Plan - Problem List (1) Pneumonia Qualifiers: Pneumonia type: due to unspecified organism Laterality: bilateral Lung location: unspecified part of lung Qualified Code(s): J18.9 - Pneumonia, unspecified organism Assessment/Plan: (1) Pneumonia Conclusion/Plan: Rocephin 2 g IV every 24 hours along with azithromycin 500 mg IV daily x5 days. Await for respiratory PCR. Sputum studies ordered. -March 10, 2023-respiratory PCR was negative Qualifiers: Pneumonia type: due to unspecified organism Laterality: bilateral Lung location: unspecified part of lung Qualified Code(s): J18.9 - Pneumonia, unspecified organism (2) Acute respiratory failure with hypoxia Conclusion/Plan: Patient is on supplemental oxygen to maintain O2 sats greater than or equal to 92%. (3) T2DM (type 2 diabetes mellitus) Conclusion/Plan: Check hemoglobin A1c. Put her on insulin protocol. Med rec needs to be reconciled by pharmacy/nursing. -Med reconciliation has been completed by pharmacy and appropriate medications reordered (4) Morbid obesity with BMI of 40.0-44.9, adult Conclusion/Plan: Nursing protocol for bariatric precautions and reviewed importance of weight loss - Current Meds Current Meds: Current Medications Generic Name Dose Route Start Last Admin Trade Name Freq PRN Reason Stop Dose Admin Hydrocodone Bitart/Acetaminophen 1 tab 03/09/23 15:23 03/10/23 05:57 Hydrocod/Acetam 5/325 Mg Tablet PO 1 tab Q4H PRN Administration PAIN 5-7 Heparin Sodium (Porcine) 5,000 unit 03/09/23 21:00 03/10/23 10:16 Heparin 5,000 Unit/Ml Vial SUBQ 5,000 unit BID LYLY Administration Ceftriaxone Sodium 2 gm/ 100 mls @ 200 mls/hr 03/10/23 09:00 03/10/23 10:35 Sodium Chloride IV 03/15/23 15:56 Infused DAILY LYLY Infusion Azithromycin 500 mg/ Sodium 250 mls @ 250 mls/hr 03/10/23 09:00 03/10/23 11:40 Chloride IV 03/15/23 16:27 Infused DAILY LYLY Infusion Insulin Human Lispro 1 - 9 unit 03/09/23 17:00 03/10/23 12:27 Insulin Lispro 300 Unit/3 Ml Pen SUBQ Not Given 0800,1200,1700,2100 [facility] Protocol Ipratropium [place] 0.5 mg 03/10/23 14:40 03/10/23 15:16 Ipratropium 0.2 Mg/Ml Neb INH 0.5 mg RTQ6H LYLY Administration Nystatin 1 applic 03/09/23 21:00 03/10/23 10:18 Nystatin Powder 15 Gm TOP 1 applic BID LYLY Administration Sodium Chloride 10 ml 03/09/23 17:00 03/10/23 09:57 Sodium Chloride Flush 0.9% 10 Ml Syringe IVP 10 ml 0100,0900,1700 LYLY Administration - Lab Result Fish Bone Diagrams: 03/10/23 05:39 03/10/23 05:39 - Additional Planning My Orders: My Active Orders 03/09/23 15:17 Activity Orders [RC] Q2HR IO [RC] IOSHIFT Incentive Spirometry - RT [RC] TID Initiate Bowel Care Protocol [RC] .protocol Initiate Bronchodialator Pam [RC] .PROTOCOL Initiate Line Care Protocol [RC] QSHIFT Initiate Personal Care Protoco [RC] .protocol Oxygen Therapy [RC] .PRN Telemetry- [RC] Q4HR Vital Signs [RC] Q4HR Acetaminophen [Tylenol] 650 mg PO Q4HR PRN Ondansetron Odt [Zofran Odt] 4 mg TL Q6HR PRN Sodium Chloride Flush 0.9% [Normal Saline Flush 0.9%] 10 ml IVP PRN PRN Code Status [OTHERS] Routine Condition of Patient [OTHERS] Routine DVT Prophylaxis [OTHERS] Routine 03/09/23 15:23 HYDROcod/ACETAM 5/325 [[place] 5/325] 1 tab PO Q4H PRN 03/09/23 15:24 PN-6 Meaningful Use Quality and Core Measures [OTHERS] Routine 03/09/23 15:33 Blood Glucose Checks - Eating [RC] 0800,1200,1700,2100 Initiate Hypoglycemia Protocol [RC] .protocol 03/09/23 15:50 CULTURE, BLOOD #1 [RM] Routine 03/09/23 15:57 CULTURE, BLOOD #2 [RM] Routine 03/09/23 Dinner Carb-controlled Diet [DIET] 03/09/23 17:00 Insulin Lispro [Humalog Kwikpen U-100] 1 - 9 unit SUBQ 0800,1200,1700,2100 Sodium Chloride Flush 0.9% [Normal Saline Flush 0.9%] 10 ml IVP 0100,0900,1700 03/09/23 21:00 Heparin [Heparin Sodium (Porcine)] 5,000 unit SUBQ BID Nystatin [Nystop] 1 applic TOP BID 03/10/23 09:00 Azithromycin Inj [Zithromax Inj] 500 mg Sodium Chloride 0.9% [Normal Saline 0.9%] 250 ml IV DAILY cefTRIAXone [Rocephin] 2 gm Sodium Chloride 0.9% Minibag [Normal Saline 0.9% Minibag] 100 ml IV DAILY 03/10/23 11:02 Sumatriptan Inj [Imitrex Inj] 6 mg SUBQ Q2H PRN 03/10/23 13:20 Nebulizer/MDI Tx. [RC] QID Resp Teach Nebulizer/MDI [RC] .ONCE Ipratropium/Albuterol [Duoneb] 3 ml INH Q4HR PRN 03/10/23 13:21 RT [Respiratory Care] [RC] .ONCE 03/10/23 13:25 Gabapentin [Neurontin] 800 mg PO TID PRN 03/10/23 14:40 Ipratropium [Atrovent] 0.5 mg INH RTQ6H 03/10/23 17:00 metFORMIN [Glucophage] 1,000 mg PO BIDWM 03/10/23 21:00 Prazosin [Minipress] 5 mg PO QPM 03/11/23 05:00 BMP - BASIC METABOLIC PANEL [CHEM] DAILYLAB CBC - COMP BLD CT W/AUTO DIFF [HEME] DAILYLAB 03/11/23 08:00 Sertraline [Zoloft] 150 mg PO QDBREAKFAST 03/11/23 09:00 Clopidogrel [Plavix] 75 mg PO DAILY Losartan [Cozaar] 100 mg PO DAILY buPROPion [Wellbutrin Sr] 300 mg PO DAILY 03/12/23 05:00 BMP - BASIC METABOLIC PANEL [CHEM] DAILYLAB CBC - COMP BLD CT W/AUTO DIFF [HEME] DAILYLAB Subjective - Subjective Patient Reports: Feeling Better (No complaints from patient today) Objective Vital Signs: Vital Signs - 24 hr 03/09/23 03/09/23 03/09/23 16:12 16:30 16:55 Temperature 36.6 C Heart Rate 119 H 120 H Heart Rate [ 114 H Brachial] Respiratory 20 18 20 Rate Blood Pressure 200/169 H 175/90 H Blood Pressure 92/76 [Right Brachial artery] Blood Pressure [Right Radial artery] O2 Saturation 97 94 95 If not protocol 4 4 : Oxygen Flow, liters/minute 03/09/23 03/09/23 03/09/23 17:39 20:04 23:48 Temperature 36.7 C 36.2 C L Heart Rate Heart Rate [ 108 H 100 Brachial] Respiratory 20 20 Rate Blood Pressure Blood Pressure 138/60 H [Right Brachial artery] Blood Pressure 127/76 [Right Radial artery] O2 Saturation 96 97 If not protocol 4 4 4 : Oxygen Flow, liters/minute 03/10/23 03/10/23 03/10/23 05:29 05:37 08:00 Temperature 36.4 C L 36.3 C L Heart Rate Heart Rate [ 105 H 105 H Brachial] Respiratory 20 20 Rate Blood Pressure Blood Pressure [Right Brachial artery] Blood Pressure 128/71 135/78 H [Right Radial artery] O2 Saturation 97 96 If not protocol 4 4 : Oxygen Flow, liters/minute 03/10/23 03/10/23 03/10/23 09:05 10:25 10:27 Temperature Heart Rate Heart Rate [ Brachial] Respiratory Rate Blood Pressure Blood Pressure [Right Brachial artery] Blood Pressure [Right Radial artery] O2 Saturation 97 97 If not protocol 4 4 3 : Oxygen Flow, liters/minute 03/10/23 03/10/23 03/10/23 12:58 15:22 15:35 Temperature 36.4 C L 36.8 C Heart Rate 105 H Heart Rate [ 108 H 106 H Brachial] Respiratory 20 18 16 Rate Blood Pressure Blood Pressure 143/75 H [Right Brachial artery] Blood Pressure 146/79 H [Right Radial artery] O2 Saturation 96 97 If not protocol 3 3 3 : Oxygen Flow, liters/minute Oxygen O2 Source [With Activity] Nasal cannula O2 Source [Without Activity] Room air O2 Source Nasal cannula I&O (Last 24 Hrs): Intake and Output Totals x24h 03/08/23 03/09/23 03/10/23 23:59 23:59 23:59 Intake Total 1350 710 Output Total 50 500 Balance 1300 210 General: Alert, Oriented x3 HEENT: Atraumatic Neck: Supple Neuro: Alert, Non Focal Cardiovascular: Regular rate Respiratory: No respiratory distress Abdomen: Normal bowel sounds, Soft Extremities: No edema - Results Results: Laboratory Results WBC 12.1 x10^3/uL (4.8-10.8) H 03/10/23 05:39 RBC 3.82 10^6/uL (4.20-5.40) L 03/10/23 05:39 Hgb 12.0 g/dL (12.0-16.0) 03/10/23 05:39 Hct 38.6 % (37.0-47.0) 03/10/23 05:39 MCV 101.0 fL (81.0-99.0) H 03/10/23 05:39 MCH 31.4 pg (27.0-31.0) H 03/10/23 05:39 MCHC 31.1 g/dL (32.0-36.0) L 03/10/23 05:39 RDW 13.1 % (12.0-15.0) 03/10/23 05:39 Plt Count 203 10^3/uL (130-450) 03/10/23 05:39 MPV 9.5 fL (7.9-10.8) 03/10/23 05:39 Neut # (Auto) 9.2 10^3/uL (1.5-6.6) H 03/10/23 05:39 Lymph # (Auto) 1.8 10^3/uL (1.5-3.5) 03/10/23 05:39 [place]a # (Auto) 0.8 10^3/uL (0.0-1.0) 03/10/23 05:39 Eos # (Auto) 0.3 10^3/uL (0.0-0.7) 03/10/23 05:39 Baso # (Auto) 0.0 10^3/uL (0.0-0.1) 03/10/23 05:39 Absolute Nucleated RBC 0.00 x10^3/uL 03/10/23 05:39 Nucleated RBC % 0.0 /100WBC 03/10/23 05:39 Sodium 137 mmol/L (135-145) 03/10/23 05:39 Potassium 4.6 mmol/L (3.5-5.0) 03/10/23 05:39 Chloride 105 mmol/L (101-111) 03/10/23 05:39 Carbon Dioxide 26 mmol/L (21-32) 03/10/23 05:39 Anion Gap 6.0 (6-13) 03/10/23 05:39 BUN 30 mg/dL (6-20) H 03/10/23 05:39 Creatinine 1.0 mg/dL (0.4-1.0) 03/10/23 05:39 Estimated GFR (MDRD) 55 (>89) L 03/10/23 05:39 Glucose 104 mg/dL (70-100) H 03/10/23 05:39 POC Whole Bld Glucose 106 mg/dL (70 - 100) H 03/10/23 11:51 Estimat Average Glucose 120 mg/dL (70-100) H 03/09/23 15:57 Hemoglobin A1c % 5.8 % (4.27-6.07) 03/09/23 15:57 Calcium 8.8 mg/dL (8.5-10.3) 03/10/23 05:39 Total Bilirubin 0.4 mg/dL (0.2-1.0) 03/09/23 10:55 AST 18 IU/L (10-42) 03/09/23 10:55 ALT 16 IU/L (10-60) 03/09/23 10:55 Alkaline Phosphatase 82 IU/L (42-121) 03/09/23 10:55 Total Protein 8.2 g/dL (6.7-8.2) 03/09/23 10:55 Albumin 3.7 g/dL (3.2-5.5) 03/09/23 10:55 Globulin 4.5 g/dL (2.1-4.2) H 03/09/23 10:55 Albumin/Globulin Ratio 0.8 (1.0-2.2) L 03/09/23 10:55 Vitamin B12 109 pg/mL (180-914) L 03/10/23 05:39 Folate 10.27 ng/mL (5.90 - >24.8) 03/10/23 05:39 Nasal Adenovirus (PCR) NOT DETECTED 03/09/23 15:00 Nasal B. parapertussis DNA (PCR) NOT DETECTED 03/09/23 15:00 Nasal Coronavir 229E PCR NOT DETECTED 03/09/23 15:00 Nasal Coronavir HKU1 PCR NOT DETECTED 03/09/23 15:00 Nasal Coronavir NL63 PCR NOT DETECTED 03/09/23 15:00 Nasal Coronavir OC43 PCR NOT DETECTED 03/09/23 15:00 Nasal Enterovir/Rhinovir PCR NOT DETECTED 03/09/23 15:00 Nasal Influenza B PCR NOT DETECTED 03/09/23 15:00 Nasal Influenza A PCR NOT DETECTED 03/09/23 15:00 Nasal Parainfluen 1 PCR NOT DETECTED 03/09/23 15:00 Nasal Parainfluen 2 PCR NOT DETECTED 03/09/23 15:00 Nasal Parainfluen 3 PCR NOT DETECTED 03/09/23 15:00 Nasal Parainfluen 4 PCR NOT DETECTED 03/09/23 15:00 Nasal RSV (PCR) NOT DETECTED 03/09/23 15:00 Nasal B.pertussis DNA PCR NOT DETECTED 03/09/23 15:00 Nasal C.pneumoniae (PCR) NOT DETECTED 03/09/23 15:00 Ubaldo Human Metapneumo PCR NOT DETECTED 03/09/23 15:00 Nasal M.pneumoniae (PCR) NOT DETECTED 03/09/23 15:00 Nasal SARS-CoV-2 (PCR) NOT DETECTED 03/09/23 15:00 - Procedures Procedures: Procedures RELEASE LEFT HAND TENDON, OPEN APPROACH (09/07/15) RELEASE RIGHT HAND TENDON, OPEN APPROACH (12/22/15) ABX Reporting Has patient been on IV antibiotics over the past 48 hours?: No
[2023-03-10] MEDS: metFORMIN 500 MG TABLET PO SCH (16:52)
[2023-03-10] MEDS: SUMAtriptan 6 MG/0.5 ML VIAL SUBQ PRN (20:31)
[2023-03-10] MEDS: PRAZOSIN 1 MG CAPSULE PO SCH (20:34)
[2023-03-11] MEDS: SODIUM CHLORIDE FLUSH 0.9% 10 ML SYRINGE IVP SCH ×3 (00:08→17:05)
[2023-03-11] MEDS: HYDROcod/ACETAM 5/325 MG TABLET PO PRN ×4 (00:11→18:15)
[2023-03-11] MEDS: IPRATROPIUM/ALBUTEROL 3 ML NEB INH PRN ×3 (01:02→13:06)
[2023-03-11] MEDS: IPRATROPIUM 0.2 MG/ML NEB INH SCH ×4 (01:03→20:52)
[2023-03-11 05:22] LABS: BASOPHILS % (AUTO) 0.4 %; EOSINOPHILS # (AUTO) 0.3 10^3/uL (0.0-0.7); EOSINOPHILS % (AUTO) 3.3 %; HCT - HEMATOCRIT 35.7 % (37.0-47.0); HGB - HEMOGLOBIN 11.4 g/dL (12.0-16.0); LYMPHOCYTES # (AUTO) 1.1 10^3/uL (1.5-3.5); LYMPHOCYTES % (AUTO) 13.7 %; MEAN CORPUSCULAR HEMOGLOBIN 30.7 pg (27.0-31.0); MEAN CORPUSCULAR HGB CONC 31.9 g/dL (32.0-36.0); MEAN CORPUSCULAR VOLUME 96.2 fL (81.0-99.0); MEAN PLATELET VOLUME 9.4 fL (7.9-10.8); MONOCYTES # (AUTO) 0.8 10^3/uL (0.0-1.0); MONOCYTES % (AUTO) 9.1 %; NEUTROPHILS # (AUTO) 6.1 10^3/uL (1.5-6.6); NEUTROPHILS % (AUTO) 73.1 %; PLT - PLATELET COUNT 224 10^3/uL (130-450); RED BLOOD COUNT 3.71 10^6/uL (4.20-5.40); RED CELL DISTRIBUTION WIDTH 12.4 % (12.0-15.0); WHITE BLOOD COUNT 8.3 x10^3/uL (4.8-10.8)
[2023-03-11 05:29] LABS: CALCIUM 8.8 mg/dL (8.5-10.3); CREATININE 0.9 mg/dL (0.4-1.0); POTASSIUM 4.4 mmol/L (3.5-5.0)
[2023-03-11] MEDS: INSULIN LISPRO 300 UNIT/3 ML PEN SUBQ SCH ×4 (09:08→20:51)
[2023-03-11] MEDS: metFORMIN 500 MG TABLET PO SCH ×2 (09:09→17:05)
[2023-03-11] MEDS: SERTRALINE 50 MG TABLET PO SCH (09:09)
[2023-03-11] MEDS: cefTRIAXone 2 GM in SODIUM CHLORIDE 0.9% MINIBAG 100 ML IV SCH (09:10)
[2023-03-11] MEDS: NYSTATIN POWDER 15 GM TOP SCH ×2 (09:11→20:51)
[2023-03-11] MEDS: LOSARTAN 50 MG TABLET PO SCH (09:11)
[2023-03-11] MEDS: buPROPion SR 150 MG TABLET PO SCH (09:11)
[2023-03-11] MEDS: CLOPIDOGREL 75 MG TABLET PO SCH (09:11)
[2023-03-11] MEDS: polyethylene glycoL 3350 17 GM PACKET PO SCH (09:12)
[2023-03-11] MEDS: HEPARIN 5,000 UNIT/ML VIAL SUBQ SCH ×2 (09:14→20:52)
[2023-03-11] MEDS: AZITHROMYCIN INJ 500 MG in SODIUM CHLORIDE 0.9% 250 ML IV SCH (09:54)
--- NOTE | 2023-03-11 13:08 | PROVIDER PROGRESS NOTE ---
Assessment/Plan - Problem List (1) Pneumonia Qualifiers: Pneumonia type: due to unspecified organism Laterality: bilateral Lung location: unspecified part of lung Qualified Code(s): J18.9 - Pneumonia, unspecified organism Assessment/Plan: Conclusion/Plan: Rocephin 2 g IV every 24 hours along with azithromycin 500 mg IV daily x5 days. Await for respiratory PCR. Sputum studies ordered. -March 10, 2023-respiratory PCR was negative Qualifiers: Pneumonia type: due to unspecified organism Laterality: bilateral Lung location: unspecified part of lung Qualified Code(s): J18.9 - Pneumonia, unspecified organism (2) Acute respiratory failure with hypoxia Conclusion/Plan: Patient is on supplemental oxygen to maintain O2 sats greater than or equal to 92%. March 11, 2023-review importance of titrating down oxygen to see if she will need to continue using oxygen at home (3) T2DM (type 2 diabetes mellitus) Conclusion/Plan: Check hemoglobin A1c. Put her on insulin protocol. Med rec needs to be josé luis nciled by pharmacy/nursing. -Med reconciliation has been completed by pharmacy and appropriate medications reordered (4) Morbid obesity with BMI of 40.0-44.9, adult Conclusion/Plan: Nursing protocol for bariatric precautions and reviewed importance of weight l oss March 11, 2023-given her morbid obesity will get OT PT to get patient moving and ensure safe discharge to home when able - Current Meds Current Meds: Current Medications Generic Name Dose Route Start Last Admin Trade Name Freq PRN Reason Stop Dose Admin Hydrocodone Bitart/Acetaminophen 1 tab 03/09/23 15:23 03/11/23 05:17 Hydrocod/Acetam 5/325 Mg Tablet PO 1 tab Q4H PRN Administration PAIN 5-7 Albuterol/Ipratropium 3 ml 03/10/23 13:20 03/11/23 06:20 Ipratropium/Albuterol 3 Ml Neb INH 3 ml Q4HR PRN Administration Wheezing Bupropion HCl 300 mg 03/11/23 09:00 03/11/23 09:11 Bupropion Sr 150 Mg Tablet PO 300 mg DAILY LYLY Administration Clopidogrel Bisulfate 75 mg 03/11/23 09:00 03/11/23 09:11 Clopidogrel 75 Mg Tablet PO 75 mg DAILY LYLY Administration Heparin Sodium (Porcine) 5,000 unit 03/09/23 21:00 03/11/23 09:14 Heparin 5,000 Unit/Ml Vial SUBQ 5,000 unit BID LYLY Administration Ceftriaxone Sodium 2 gm/ 100 mls @ 200 mls/hr 03/10/23 09:00 03/11/23 09:54 Sodium Chloride IV 03/15/23 15:56 Infused DAILY LYLY Infusion Azithromycin 500 mg/ Sodium 250 mls @ 250 mls/hr 03/10/23 09:00 03/11/23 11:00 Chloride IV 03/15/23 16:27 Infused DAILY LYLY Infusion Insulin Human Lispro 1 - 9 unit 03/09/23 17:00 03/11/23 11:27 Insulin Lispro 300 Unit/3 Ml Pen SUBQ Not Given 0800,1200,1700,2100 [facility] Protocol Ipratropium [place] 0.5 mg 03/10/23 14:40 03/11/23 06:24 Ipratropium 0.2 Mg/Ml Neb INH Not Given RTQ6H LYLY Losartan Potassium 100 mg 03/11/23 09:00 03/11/23 09:11 Losartan 50 Mg Tablet PO 100 mg DAILY LYLY Administration Metformin HCl 1,000 mg 03/10/23 17:00 03/11/23 09:09 Metformin 500 Mg Tablet PO 1,000 mg BIDWM LYLY Administration Nystatin 1 applic 03/09/23 21:00 03/11/23 09:11 Nystatin Powder 15 Gm TOP 1 applic BID LYLY Administration Polyethylene Glycol 17 gm 03/11/23 09:00 03/11/23 09:12 Polyethylene Glycol 3350 17 Gm Packet PO 17 gm DAILY LYLY Administration Prazosin HCl 5 mg 03/10/23 21:00 03/10/23 20:34 Prazosin 1 Mg Capsule PO 5 mg QPM LYLY Administration Sertraline HCl 150 mg 03/11/23 08:00 03/11/23 09:09 Sertraline 50 Mg Tablet PO 150 mg QDBREAKFAST LYLY Administration Sodium Chloride 10 ml 03/09/23 17:00 03/11/23 09:12 Sodium Chloride Flush 0.9% 10 Ml Syringe IVP 10 ml 0100,0900,1700 LYLY Administration Sumatriptan Succinate 6 mg 03/10/23 11:02 03/10/23 20:31 Sumatriptan 6 Mg/0.5 Ml Vial SUBQ 6 mg Q2H PRN Administration MIGRAINE - Lab Result Fish Bone Diagrams: 03/11/23 04:57 03/11/23 04:57 - Additional Planning My Orders: My Active Orders 03/10/23 13:20 Nebulizer/MDI Tx. [RC] .PRN Ipratropium/Albuterol [Duoneb] 3 ml INH Q4HR PRN 03/10/23 13:25 Gabapentin [Neurontin] 800 mg PO TID PRN 03/10/23 14:40 Ipratropium [Atrovent] 0.5 mg INH RTQ6H 03/10/23 17:00 metFORMIN [Glucophage] 1,000 mg PO BIDWM 03/10/23 21:00 Prazosin [Minipress] 5 mg PO QPM 03/11/23 Evaluate and Treat OT [OT] Routine 03/11/23 08:00 Sertraline [Zoloft] 150 mg PO QDBREAKFAST 03/11/23 09:00 Clopidogrel [Plavix] 75 mg PO DAILY Losartan [Cozaar] 100 mg PO DAILY buPROPion [Wellbutrin Sr] 300 mg PO DAILY polyethylene glycoL 3350 [Miralax] 17 gm PO DAILY 03/12/23 05:00 BMP - BASIC METABOLIC PANEL [CHEM] DAILYLAB CBC - COMP BLD CT W/AUTO DIFF [HEME] DAILYLAB Subjective - Subjective Patient Reports: Feeling Better Objective Vital Signs: Vital Signs - 24 hr 03/10/23 03/10/23 03/10/23 15:22 15:35 19:18 Temperature 36.8 C Heart Rate 105 H 106 H Heart Rate [ Activity] Heart Rate [ 106 H Brachial] Heart Rate [ Sitting] Heart Rate [ Supine] Respiratory 18 16 16 Rate Blood Pressure [Activity] Blood Pressure 143/75 H [Right Brachial artery] Blood Pressure [Right Radial artery] Blood Pressure [Sitting] Blood Pressure [Supine] O2 Saturation 97 If not protocol 3 3 2 : Oxygen Flow, liters/minute 03/10/23 03/11/23 03/11/23 20:19 00:14 01:05 Temperature 37.1 C 36.3 C L Heart Rate 116 H Heart Rate [ Activity] Heart Rate [ 102 H 110 H Brachial] Heart Rate [ Sitting] Heart Rate [ Supine] Respiratory 16 20 22 Rate Blood Pressure [Activity] Blood Pressure 144/75 H 132/66 H [Right Brachial artery] Blood Pressure [Right Radial artery] Blood Pressure [Sitting] Blood Pressure [Supine] O2 Saturation 94 94 If not protocol 2 2 2 : Oxygen Flow, liters/minute 03/11/23 03/11/23 03/11/23 05:10 06:20 07:30 Temperature 37.0 C 36.6 C Heart Rate 108 H Heart Rate [ Activity] Heart Rate [ 115 H 112 H Brachial] Heart Rate [ Sitting] Heart Rate [ Supine] Respiratory 18 20 16 Rate Blood Pressure [Activity] Blood Pressure 125/62 [Right Brachial artery] Blood Pressure 128/55 L [Right Radial artery] Blood Pressure [Sitting] Blood Pressure [Supine] O2 Saturation 94 95 If not protocol 2 2 2 : Oxygen Flow, liters/minute 03/11/23 03/11/23 10:40 11:27 Temperature 36.6 C Heart Rate Heart Rate [ 115 H Activity] Heart Rate [ 105 H Brachial] Heart Rate [ 115 H Sitting] Heart Rate [ 104 H Supine] Respiratory 16 Rate Blood Pressure 136/74 H [Activity] Blood Pressure 117/67 [Right Brachial artery] Blood Pressure [Right Radial artery] Blood Pressure 141/81 H [Sitting] Blood Pressure 127/50 L [Supine] O2 Saturation 96 If not protocol 1 : Oxygen Flow, liters/minute Oxygen O2 Source [With Activity] Nasal cannula O2 Source [Without Activity] Room air O2 Source Nasal cannula I&O (Last 24 Hrs): Intake and Output Totals x24h 03/09/23 03/10/23 03/11/23 23:59 23:59 23:59 Intake Total 1350 1310 690 Output Total 50 1150 475 Balance 1300 160 215 General: Alert, Oriented x3, No acute distress HEENT: Atraumatic Neck: Supple Neuro: Alert Cardiovascular: Regular rate, Normal S1, Normal S2 Respiratory: Other (Decreased breath sounds at her bases) Abdomen: Normal bowel sounds, Soft Extremities: No edema - Results Results: Laboratory Results WBC 8.3 x10^3/uL (4.8-10.8) 03/11/23 04:57 RBC 3.71 10^6/uL (4.20-5.40) L 03/11/23 04:57 Hgb 11.4 g/dL (12.0-16.0) L 03/11/23 04:57 Hct 35.7 % (37.0-47.0) L 03/11/23 04:57 MCV 96.2 fL (81.0-99.0) 03/11/23 04:57 MCH 30.7 pg (27.0-31.0) 03/11/23 04:57 MCHC 31.9 g/dL (32.0-36.0) L 03/11/23 04:57 RDW 12.4 % (12.0-15.0) 03/11/23 04:57 Plt Count 224 10^3/uL (130-450) 03/11/23 04:57 MPV 9.4 fL (7.9-10.8) 03/11/23 04:57 Neut # (Auto) 6.1 10^3/uL (1.5-6.6) 03/11/23 04:57 Lymph # (Auto) 1.1 10^3/uL (1.5-3.5) L 03/11/23 04:57 [place] # (Auto) 0.8 10^3/uL (0.0-1.0) 03/11/23 04:57 Eos # (Auto) 0.3 10^3/uL (0.0-0.7) 03/11/23 04:57 Baso # (Auto) 0.0 10^3/uL (0.0-0.1) 03/11/23 04:57 Absolute Nucleated RBC 0.00 x10^3/uL 03/11/23 04:57 Nucleated RBC % 0.0 /100WBC 03/11/23 04:57 Sodium 135 mmol/L (135-145) 03/11/23 04:57 Potassium 4.4 mmol/L (3.5-5.0) 03/11/23 04:57 Chloride 102 mmol/L (101-111) 03/11/23 04:57 Carbon Dioxide 27 mmol/L (21-32) 03/11/23 04:57 Anion Gap 6.0 (6-13) 03/11/23 04:57 BUN 18 mg/dL (6-20) 03/11/23 04:57 Creatinine 0.9 mg/dL (0.4-1.0) 03/11/23 04:57 Estimated GFR (MDRD) 62 (>89) L 03/11/23 04:57 Glucose 122 mg/dL (70-100) H 03/11/23 04:57 POC Whole Bld Glucose 113 mg/dL (70 - 100) H 03/11/23 11:26 Estimat Average Glucose 120 mg/dL (70-100) H 03/09/23 15:57 Hemoglobin A1c % 5.8 % (4.27-6.07) 03/09/23 15:57 Calcium 8.8 mg/dL (8.5-10.3) 03/11/23 04:57 Total Bilirubin 0.4 mg/dL (0.2-1.0) 03/09/23 10:55 AST 18 IU/L (10-42) 03/09/23 10:55 ALT 16 IU/L (10-60) 03/09/23 10:55 Alkaline Phosphatase 82 IU/L (42-121) 03/09/23 10:55 Total Protein 8.2 g/dL (6.7-8.2) 03/09/23 10:55 Albumin 3.7 g/dL (3.2-5.5) 03/09/23 10:55 Globulin 4.5 g/dL (2.1-4.2) H 03/09/23 10:55 Albumin/Globulin Ratio 0.8 (1.0-2.2) L 03/09/23 10:55 Vitamin B12 109 pg/mL (180-914) L 03/10/23 05:39 Folate 10.27 ng/mL (5.90 - >24.8) 03/10/23 05:39 Nasal Adenovirus (PCR) NOT DETECTED 03/09/23 15:00 Nasal B. parapertussis DNA (PCR) NOT DETECTED 03/09/23 15:00 Nasal Coronavir 229E PCR NOT DETECTED 03/09/23 15:00 Nasal Coronavir HKU1 PCR NOT DETECTED 03/09/23 15:00 Nasal Coronavir NL63 PCR NOT DETECTED 03/09/23 15:00 Nasal Coronavir OC43 PCR NOT DETECTED 03/09/23 15:00 Nasal Enterovir/Rhinovir PCR NOT DETECTED 03/09/23 15:00 Nasal Influenza B PCR NOT DETECTED 03/09/23 15:00 Nasal Influenza A PCR NOT DETECTED 03/09/23 15:00 Nasal Parainfluen 1 PCR NOT DETECTED 03/09/23 15:00 Nasal Parainfluen 2 PCR NOT DETECTED 03/09/23 15:00 Nasal Parainfluen 3 PCR NOT DETECTED 03/09/23 15:00 Nasal Parainfluen 4 PCR NOT DETECTED 03/09/23 15:00 Nasal RSV (PCR) NOT DETECTED 03/09/23 15:00 Nasal B.pertussis DNA PCR NOT DETECTED 03/09/23 15:00 Nasal C.pneumoniae (PCR) NOT DETECTED 03/09/23 15:00 Ubaldo Human Metapneumo PCR NOT DETECTED 03/09/23 15:00 Nasal M.pneumoniae (PCR) NOT DETECTED 03/09/23 15:00 Nasal SARS-CoV-2 (PCR) NOT DETECTED 03/09/23 15:00 - Procedures Procedures: Procedures RELEASE LEFT HAND TENDON, OPEN APPROACH (09/07/15) RELEASE RIGHT HAND TENDON, OPEN APPROACH (12/22/15)
[2023-03-11] MEDS: PRAZOSIN 1 MG CAPSULE PO SCH (20:51)
[2023-03-11] MEDS: SUMAtriptan 6 MG/0.5 ML VIAL SUBQ PRN (22:29)
[2023-03-12] MEDS: HYDROcod/ACETAM 5/325 MG TABLET PO PRN ×4 (00:38→22:12)
[2023-03-12] MEDS: SODIUM CHLORIDE FLUSH 0.9% 10 ML SYRINGE IVP SCH ×3 (00:39→20:47)
[2023-03-12] MEDS: IPRATROPIUM 0.2 MG/ML NEB INH SCH ×5 (03:47→18:03)
[2023-03-12 05:23] LABS: BASOPHILS % (AUTO) 0.5 %; EOSINOPHILS # (AUTO) 0.3 10^3/uL (0.0-0.7); EOSINOPHILS % (AUTO) 4.7 %; HCT - HEMATOCRIT 35.1 % (37.0-47.0); HGB - HEMOGLOBIN 11.3 g/dL (12.0-16.0); LYMPHOCYTES # (AUTO) 1.4 10^3/uL (1.5-3.5); LYMPHOCYTES % (AUTO) 25.5 %; MEAN CORPUSCULAR HEMOGLOBIN 31.2 pg (27.0-31.0); MEAN CORPUSCULAR HGB CONC 32.2 g/dL (32.0-36.0); MEAN PLATELET VOLUME 9.6 fL (7.9-10.8); MONOCYTES # (AUTO) 0.6 10^3/uL (0.0-1.0); MONOCYTES % (AUTO) 10.2 %; NEUTROPHILS # (AUTO) 3.2 10^3/uL (1.5-6.6); NEUTROPHILS % (AUTO) 58.9 %; PLT - PLATELET COUNT 221 10^3/uL (130-450); RED BLOOD COUNT 3.62 10^6/uL (4.20-5.40); RED CELL DISTRIBUTION WIDTH 12.4 % (12.0-15.0); WHITE BLOOD COUNT 5.5 x10^3/uL (4.8-10.8)
[2023-03-12 05:37] LABS: CALCIUM 9.1 mg/dL (8.5-10.3); CREATININE 0.9 mg/dL (0.4-1.0); POTASSIUM 4.7 mmol/L (3.5-5.0)
[2023-03-12] MEDS: INSULIN LISPRO 300 UNIT/3 ML PEN SUBQ SCH ×4 (08:06→20:41)
[2023-03-12] MEDS: LOSARTAN 50 MG TABLET PO SCH (08:07)
[2023-03-12] MEDS: SERTRALINE 50 MG TABLET PO SCH (08:07)
[2023-03-12] MEDS: polyethylene glycoL 3350 17 GM PACKET PO SCH (08:07)
[2023-03-12] MEDS: buPROPion SR 150 MG TABLET PO SCH (08:07)
[2023-03-12] MEDS: cefTRIAXone 2 GM in SODIUM CHLORIDE 0.9% MINIBAG 100 ML IV SCH (08:08)
[2023-03-12] MEDS: CLOPIDOGREL 75 MG TABLET PO SCH (08:08)
[2023-03-12] MEDS: DOCUSATE SODIUM 250 MG CAPSULE PO SCH (08:08)
[2023-03-12] MEDS: NYSTATIN POWDER 15 GM TOP SCH ×2 (08:09→20:41)
[2023-03-12] MEDS: HEPARIN 5,000 UNIT/ML VIAL SUBQ SCH ×2 (08:11→20:42)
[2023-03-12] MEDS: AZITHROMYCIN INJ 500 MG in SODIUM CHLORIDE 0.9% 250 ML IV SCH (09:10)
[2023-03-12] MEDS: metFORMIN 500 MG TABLET PO SCH (09:10)
[2023-03-12] MEDS ORDERED: iohexoL-300 100 ML VIAL ONE (09:47)
[2023-03-12] MEDS ORDERED: iohexoL-300 100 ML VIAL IVP ONE (10:18)
--- NOTE | 2023-03-12 11:00 | CT Report ---
PROCEDURE: CT chest with contrast INDICATIONS: chest pain CONTRAST: 100ml omni 300 TECHNIQUE: After the administration of intravenous contrast, 1 mm axial images were acquired from the pulmonary apices through the posterior costophrenic angles. Axial 5 mm soft tissue kernel reconstructions were performed as well as 8 mm axial MIP and coronal and sagittal 5 mm reformations. For radiation dose reduction, the following was used: automated exposure control, adjustment of mA and/or kV according to patient size. COMPARISON: 12/08/2016 FINDINGS: Image quality: Excellent. Lungs and pleura: Right upper lobe pulmonary infiltrate present. Bibasilar atelectasis . Small left p leural effusion. No pneumothorax Mediastinum: Heart size is enlarged. No pericardial effusion. No large vessel abnormality. No mediast inal adenopathy by size criteria. Incidental aberrant right subclavian artery, an anatomic variant Chest wall and lower neck: Thyroid is unremarkable. No axillary or supraclavicular adenopathy by size . Bones: No aggressive osseous abnormality. Upper Abdomen: 3.8 cm right adrenal nodule contains macroscopic fat. Lumbar spine discectomy and fusi on with instrumentation and right hemilaminectomy noted, partially imaged. IMPRESSION: Mild right upper lobe pulmonary infiltrate and moderate bibasilar atelectasis. Small left pleural eff usion. 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
--- NOTE | 2023-03-12 15:59 | PROVIDER PROGRESS NOTE ---
Assessment/Plan - Problem List (1) Pneumonia Qualifiers: Pneumonia type: due to unspecified organism Laterality: bilateral Lung location: unspecified part of lung Qualified Code(s): J18.9 - Pneumonia, unspecified organism Assessment/Plan: Conclusion/Plan: Rocephin 2 g IV every 24 hours along with azithromycin 500 mg IV daily x5 days. Await for respiratory PCR. Sputum studies ordered. -March 10, 2023-respiratory PCR was negative Qualifiers: Pneumonia type: due to unspecified organism Laterality: bilateral Lung location: unspecified part of lung Qualified Code(s): J18.9 - Pneumonia, unspecified organism (2) Acute respiratory failure with hypoxia Conclusion/Plan: Patient is on supplemental oxygen to maintain O2 sats greater than or equal to 92%. March 11, 2023-review importance of titrating down oxygen to see if she will need to continue using oxygen at home March 12, 2023-patient did have some pleuritic type chest pain left upper chest area CTA PE protocol of chest done which did not reveal pulmonary emboli but did image her current pneumonia. (3) T2DM (type 2 diabetes mellitus) Conclusion/Plan: Check hemoglobin A1c. Put her on insulin protocol. Med rec needs to be reconciled by pharmacy/nursing. -Med reconciliation has been completed by pharmacy and appropriate medications reordered (4) Morbid obesity with BMI of 40.0-44.9, adult Conclusion/Plan: Nursing protocol for bariatric precautions and reviewed importance of weight loss March 11, 2023-given her morbid obesity will get OT PT to get patient moving and ensure safe discharge to home when able - Current Meds Current Meds: Current Medications Generic Name Dose Route Start Last Admin Trade Name Freq PRN Reason Stop Dose Admin Hydrocodone Bitart/Acetaminophen 1 tab 03/09/23 15:23 03/12/23 15:47 Hydrocod/Acetam 5/325 Mg Tablet PO 1 tab Q4H PRN Administration PAIN 5-7 Bupropion HCl 300 mg 03/11/23 09:00 03/12/23 08:07 Bupropion Sr 150 Mg Tablet PO 300 mg DAILY LYLY Administration Clopidogrel Bisulfate 75 mg 03/11/23 09:00 03/12/23 08:08 Clopidogrel 75 Mg Tablet PO 75 mg DAILY LYLY Administration Docusate Sodium 250 - 500 mg 03/12/23 09:00 03/12/23 08:08 Docusate Sodium 250 Mg Capsule PO 250 mg DAILY LYLY Administration Heparin Sodium (Porcine) 5,000 unit 03/09/23 21:00 03/12/23 08:11 Heparin 5,000 Unit/Ml Vial SUBQ 5,000 unit BID LYLY Administration Ceftriaxone Sodium 2 gm/ 100 mls @ 200 mls/hr 03/10/23 09:00 03/12/23 08:45 Sodium Chloride IV 03/15/23 15:56 Infused DAILY LYLY Infusion Azithromycin 500 mg/ Sodium 250 mls @ 250 mls/hr 03/10/23 09:00 03/12/23 10:11 Chloride IV 03/15/23 16:27 Infused DAILY LYLY Infusion Insulin Human Lispro 1 - 9 unit 03/09/23 17:00 03/12/23 11:14 Insulin Lispro 300 Unit/3 Ml Pen SUBQ Not Given 0800,1200,1700,2100 [facility] Protocol Ipratropium [place] 0.5 mg 03/10/23 14:40 03/12/23 13:17 Ipratropium 0.2 Mg/Ml Neb INH 0.5 mg RTQ6H LYLY Administration Losartan Potassium 100 mg 03/11/23 09:00 03/12/23 08:07 Losartan 50 Mg Tablet PO 100 mg DAILY LYLY Administration Nystatin 1 applic 03/09/23 21:00 03/12/23 08:09 Nystatin Powder 15 Gm TOP 1 applic BID LYLY Administration Polyethylene Glycol 17 gm 03/11/23 09:00 03/12/23 08:07 Polyethylene Glycol 3350 17 Gm Packet PO 17 gm DAILY LYLY Administration Prazosin HCl 5 mg 03/10/23 21:00 03/11/23 20:51 Prazosin 1 Mg Capsule PO 5 mg QPM LYLY Administration Sertraline HCl 150 mg 03/11/23 08:00 03/12/23 08:07 Sertraline 50 Mg Tablet PO 150 mg QDBREAKFAST LYLY Administration Sodium Chloride 10 ml 03/09/23 17:00 03/12/23 08:09 Sodium Chloride Flush 0.9% 10 Ml Syringe IVP 10 ml 0100,0900,1700 LYLY Administration Sumatriptan Succinate 6 mg 03/10/23 11:02 03/11/23 22:29 Sumatriptan 6 Mg/0.5 Ml Vial SUBQ 6 mg Q2H PRN Administration MIGRAINE - Lab Result Fish Bone Diagrams: 03/12/23 04:48 03/12/23 04:48 - Additional Planning My Orders: My Active Orders 03/12/23 09:00 Docusate Sodium 250Mg Capsule [Colace 250Mg Capsule] 250 - 500 mg PO DAILY 03/12/23 11:07 Albuterol 2.5 mg INH RTQ4H PRN 03/12/23 11:08 Nebulizer/MDI Tx. [RC] QID Resp Teach Nebulizer/MDI [RC] .ONCE Subjective - Subjective Patient Reports: Other (Patient complained of some left-sided upper pleuritic type chest pain.) Objective Vital Signs: Vital Signs - 24 hr 03/11/23 03/11/23 03/12/23 16:12 20:08 00:33 Temperature 36.7 C 36.6 C 36.5 C Heart Rate Heart Rate [ 106 H 106 H 108 H Brachial] Respiratory 20 20 16 Rate Blood Pressure 117/69 141/62 H 116/61 [Right Brachial artery] O2 Saturation 92 93 90 L If not protocol : Oxygen Flow, liters/minute 03/12/23 03/12/23 03/12/23 02:55 03:00 05:00 Temperature 36.6 C Heart Rate Heart Rate [ 97 Brachial] Respiratory 20 20 16 Rate Blood Pressure 120/47 L [Right Brachial artery] O2 Saturation 89 L 93 94 If not protocol 1 1 : Oxygen Flow, liters/minute 03/12/23 03/12/23 03/12/23 07:18 07:19 07:29 Temperature 36.4 C L Heart Rate 98 Heart Rate [ 94 Brachial] Respiratory 20 16 Rate Blood Pressure 120/59 L [Right Brachial artery] O2 Saturation 94 If not protocol 1 1 : Oxygen Flow, liters/minute 03/12/23 03/12/23 03/12/23 11:15 13:18 15:43 Temperature 36.3 C L 37.0 C Heart Rate 100 Heart Rate [ 101 H 102 H Brachial] Respiratory 16 18 20 Rate Blood Pressure 111/59 L 132/71 H [Right Brachial artery] O2 Saturation 92 94 If not protocol : Oxygen Flow, liters/minute Oxygen O2 Source [With Activity] Nasal cannula O2 Source [Without Activity] Room air O2 Source Room air I&O (Last 24 Hrs): Intake and Output Totals x24h 03/10/23 03/11/23 03/12/23 23:59 23:59 23:59 Intake Total 1310 1440 1307 Output Total 1150 715 675 Balance 160 725 632 General: Alert, Oriented x3 HEENT: Atraumatic Neck: Supple Neuro: Alert, Non Focal Cardiovascular: Regular rate, Normal S1, Normal S2 Respiratory: Wheezes (Scant) Abdomen: Soft, No tenderness - Results Results: Laboratory Results WBC 5.5 x10^3/uL (4.8-10.8) 03/12/23 04:48 RBC 3.62 10^6/uL (4.20-5.40) L 03/12/23 04:48 Hgb 11.3 g/dL (12.0-16.0) L 03/12/23 04:48 Hct 35.1 % (37.0-47.0) L 03/12/23 04:48 MCV 97.0 fL (81.0-99.0) 03/12/23 04:48 MCH 31.2 pg (27.0-31.0) H 03/12/23 04:48 MCHC 32.2 g/dL (32.0-36.0) 03/12/23 04:48 RDW 12.4 % (12.0-15.0) 03/12/23 04:48 Plt Count 221 10^3/uL (130-450) 03/12/23 04:48 MPV 9.6 fL (7.9-10.8) 03/12/23 04:48 Neut # (Auto) 3.2 10^3/uL (1.5-6.6) 03/12/23 04:48 Lymph # (Auto) 1.4 10^3/uL (1.5-3.5) L 03/12/23 04:48 [place] # (Auto) 0.6 10^3/uL (0.0-1.0) 03/12/23 04:48 Eos # (Auto) 0.3 10^3/uL (0.0-0.7) 03/12/23 04:48 Baso # (Auto) 0.0 10^3/uL (0.0-0.1) 03/12/23 04:48 Absolute Nucleated RBC 0.00 x10^3/uL 03/12/23 04:48 Nucleated RBC % 0.0 /100WBC 03/12/23 04:48 Sodium 141 mmol/L (135-145) 03/12/23 04:48 Potassium 4.7 mmol/L (3.5-5.0) 03/12/23 04:48 Chloride 106 mmol/L (101-111) 03/12/23 04:48 Carbon Dioxide 29 mmol/L (21-32) 03/12/23 04:48 Anion Gap 6.0 (6-13) 03/12/23 04:48 BUN 16 mg/dL (6-20) 03/12/23 04:48 Creatinine 0.9 mg/dL (0.4-1.0) 03/12/23 04:48 Estimated GFR (MDRD) 62 (>89) L 03/12/23 04:48 Glucose 111 mg/dL (70-100) H 03/12/23 04:48 POC Whole Bld Glucose 104 mg/dL (70 - 100) H 03/12/23 11:11 Estimat Average Glucose 120 mg/dL (70-100) H 03/09/23 15:57 Hemoglobin A1c % 5.8 % (4.27-6.07) 03/09/23 15:57 Calcium 9.1 mg/dL (8.5-10.3) 03/12/23 04:48 Total Bilirubin 0.4 mg/dL (0.2-1.0) 03/09/23 10:55 AST 18 IU/L (10-42) 03/09/23 10:55 ALT 16 IU/L (10-60) 03/09/23 10:55 Alkaline Phosphatase 82 IU/L (42-121) 03/09/23 10:55 Total Protein 8.2 g/dL (6.7-8.2) 03/09/23 10:55 Albumin 3.7 g/dL (3.2-5.5) 03/09/23 10:55 Globulin 4.5 g/dL (2.1-4.2) H 03/09/23 10:55 Albumin/Globulin Ratio 0.8 (1.0-2.2) L 03/09/23 10:55 Vitamin B12 109 pg/mL (180-914) L 03/10/23 05:39 Folate 10.27 ng/mL (5.90 - >24.8) 03/10/23 05:39 Nasal Adenovirus (PCR) NOT DETECTED 03/09/23 15:00 Nasal B. parapertussis DNA (PCR) NOT DETECTED 03/09/23 15:00 Nasal Coronavir 229E PCR NOT DETECTED 03/09/23 15:00 Nasal Coronavir HKU1 PCR NOT DETECTED 03/09/23 15:00 Nasal Coronavir NL63 PCR NOT DETECTED 03/09/23 15:00 Nasal Coronavir OC43 PCR NOT DETECTED 03/09/23 15:00 Nasal Enterovir/Rhinovir PCR NOT DETECTED 03/09/23 15:00 Nasal Influenza B PCR NOT DETECTED 03/09/23 15:00 Nasal Influenza A PCR NOT DETECTED 03/09/23 15:00 Nasal Parainfluen 1 PCR NOT DETECTED 03/09/23 15:00 Nasal Parainfluen 2 PCR NOT DETECTED 03/09/23 15:00 Nasal Parainfluen 3 PCR NOT DETECTED 03/09/23 15:00 Nasal Parainfluen 4 PCR NOT DETECTED 03/09/23 15:00 Nasal RSV (PCR) NOT DETECTED 03/09/23 15:00 Nasal B.pertussis DNA PCR NOT DETECTED 03/09/23 15:00 Nasal C.pneumoniae (PCR) NOT DETECTED 03/09/23 15:00 Ubaldo Human Metapneumo PCR NOT DETECTED 03/09/23 15:00 Nasal M.pneumoniae (PCR) NOT DETECTED 03/09/23 15:00 Nasal SARS-CoV-2 (PCR) NOT DETECTED 03/09/23 15:00 - Procedures Procedures: Procedures RELEASE LEFT HAND TENDON, OPEN APPROACH (09/07/15) RELEASE RIGHT HAND TENDON, OPEN APPROACH (12/22/15) ABX Reporting Has patient been on IV antibiotics over the past 48 hours?: Yes
[2023-03-12] MEDS: PRAZOSIN 1 MG CAPSULE PO SCH (20:42)
[2023-03-13] MEDS: SUMAtriptan 6 MG/0.5 ML VIAL SUBQ PRN ×2 (00:10→20:07)
[2023-03-13] MEDS: SODIUM CHLORIDE FLUSH 0.9% 10 ML SYRINGE IVP SCH ×4 (02:56→23:39)
[2023-03-13] MEDS: IPRATROPIUM 0.2 MG/ML NEB INH SCH ×3 (06:31→11:38)
[2023-03-13] MEDS: ALBUTEROL NEB 2.5 MG/3 ML INH PRN ×3 (07:40→15:53)
[2023-03-13] MEDS: SERTRALINE 50 MG TABLET PO SCH (09:03)
[2023-03-13] MEDS: INSULIN LISPRO 300 UNIT/3 ML PEN SUBQ SCH (09:03)
[2023-03-13] MEDS: CLOPIDOGREL 75 MG TABLET PO SCH (09:04)
[2023-03-13] MEDS: DOCUSATE SODIUM 250 MG CAPSULE PO SCH ×2 (09:04→09:12)
[2023-03-13] MEDS: LOSARTAN 50 MG TABLET PO SCH (09:04)
[2023-03-13] MEDS: buPROPion SR 150 MG TABLET PO SCH (09:04)
[2023-03-13] MEDS: NYSTATIN POWDER 15 GM TOP SCH ×2 (09:04→20:41)
[2023-03-13] MEDS: cefTRIAXone 2 GM in SODIUM CHLORIDE 0.9% MINIBAG 100 ML IV SCH (09:04)
[2023-03-13] MEDS: polyethylene glycoL 3350 17 GM PACKET PO SCH (09:04)
[2023-03-13] MEDS: HEPARIN 5,000 UNIT/ML VIAL SUBQ SCH ×2 (09:07→20:43)
[2023-03-13] MEDS ORDERED: CYANOCOBALAMIN 1,000 MCG/ML VIAL IM ONE (11:13)
[2023-03-13] MEDS: HYDROcod/ACETAM 5/325 MG TABLET PO PRN ×2 (11:42→23:29)
[2023-03-13] MEDS: CYANOCOBALAMIN 500 MCG TABLET PO SCH ×2 (11:42→20:41)
[2023-03-13] MEDS: IPRATROPIUM/ALBUTEROL 3 ML NEB INH SCH (18:34)
[2023-03-13] MEDS: PRAZOSIN 1 MG CAPSULE PO SCH (20:41)
[2023-03-14] MEDS: HYDROcod/ACETAM 5/325 MG TABLET PO PRN ×3 (04:48→21:23)
[2023-03-14] MEDS: IPRATROPIUM/ALBUTEROL 3 ML NEB INH SCH ×4 (07:19→19:30)
[2023-03-14] MEDS: NYSTATIN POWDER 15 GM TOP SCH ×2 (07:50→21:28)
[2023-03-14] MEDS: polyethylene glycoL 3350 17 GM PACKET PO SCH (07:50)
[2023-03-14] MEDS: DOCUSATE SODIUM 250 MG CAPSULE PO SCH (07:51)
[2023-03-14] MEDS: LOSARTAN 50 MG TABLET PO SCH (07:51)
[2023-03-14] MEDS: CLOPIDOGREL 75 MG TABLET PO SCH (07:52)
[2023-03-14] MEDS: SERTRALINE 50 MG TABLET PO SCH (07:52)
[2023-03-14] MEDS: buPROPion SR 150 MG TABLET PO SCH (07:52)
[2023-03-14] MEDS: CYANOCOBALAMIN 500 MCG TABLET PO SCH ×2 (07:52→21:23)
[2023-03-14] MEDS: SODIUM CHLORIDE FLUSH 0.9% 10 ML SYRINGE IVP SCH ×2 (07:55→21:27)
[2023-03-14] MEDS: HEPARIN 5,000 UNIT/ML VIAL SUBQ SCH ×2 (07:57→21:22)
[2023-03-14] MEDS ORDERED: metFORMIN 500 MG TABLET PO SCH (08:00)
[2023-03-14] MEDS: cefTRIAXone 2 GM in SODIUM CHLORIDE 0.9% MINIBAG 100 ML IV SCH (08:18)
--- NOTE | 2023-03-14 18:11 | PROVIDER PROGRESS NOTE ---
Assessment/Plan - Problem List (1) Pneumonia Qualifiers: Pneumonia type: due to unspecified organism Laterality: bilateral Lung location: unspecified part of lung Qualified Code(s): J18.9 - Pneumonia, unspecified organism Assessment/Plan: Sputum studies ordered. Her respiratory PCR came back negative Plan: Rocephin 2 g IV every 24 hours ordered along with azithromycin 500 mg IV daily x5 days. Qualifiers: Pneumonia type: due to unspecified organism Laterality: bilateral Lung location: unspecified part of lung Qualified Code(s): J18.9 - Pneumonia, unspecified organism (2) T2DM (type 2 diabetes mellitus) Conclusion/Plan: She was put her on insulin protocol. Her hemoglobin A1c came back at 5.8, indicating very good control Plan: She had a CT with dye yesterday. We will resume her metformin tomorrow (3) Morbid obesity with BMI of 40.0-44.9, adult Conclusion/Plan: Nursing protocol for bariatric precautions and reviewed importance of weight loss March 11, 2023-given her morbid obesity will get OT PT to get patient moving. PT learned that she uses a walker and also has caregivers. PT recommended Home Health srvice for more rehab and help at home Plan: Ensure safe discharge to home when able (4) Acute respiratory failure with hypoxia Conclusion/Plan: Patient required supplemental oxygen to maintain O2 sats greater than or equal to 92%. March 11, 2023-review importance of titrating down oxygen to see if she will need to continue using oxygen at home March 12, 2023-patient did have some pleuritic type chest pain left upper chest area CTA PE protocol of chest done which did not reveal pulmonary emboli but did image her current pneumonia. She was needing supplk O2 at night, but since today, day shift, she is tolerating room air at rest. Plan: If she has a qualifying Dx, will plan to do an oximetry walk test on the day of discharge to see if she needs home O2 ordered - Current Meds Current Meds: Current Medications Generic Name Dose Route Start Last Admin Trade Name Freq PRN Reason Stop Dose Admin Hydrocodone Bitart/Acetaminophen 1 tab 03/09/23 15:23 03/14/23 12:34 Hydrocod/Acetam 5/325 Mg Tablet PO 1 tab Q4H PRN Administration PAIN 5-7 Albuterol 2.5 mg 03/12/23 11:07 03/13/23 15:53 Albuterol Neb 2.5 Mg/3 Ml INH 2.5 mg RTQ4H PRN Administration Wheezing Albuterol/Ipratropium 3 ml 03/13/23 19:00 03/14/23 14:50 Ipratropium/Albuterol 3 Ml Neb INH 3 ml RTQID LYLY Administration Bupropion HCl 300 mg 03/11/23 09:00 03/14/23 07:52 Bupropion Sr 150 Mg Tablet PO 300 mg DAILY LYLY Administration Clopidogrel Bisulfate 75 mg 03/11/23 09:00 03/14/23 07:52 Clopidogrel 75 Mg Tablet PO 75 mg DAILY LYLY Administration Cyanocobalamin 500 mcg 03/13/23 12:00 03/14/23 07:52 Cyanocobalamin 500 Mcg Tablet PO 500 mcg BID LYLY Administration Docusate Sodium 250 - 500 mg 03/12/23 09:00 03/14/23 07:51 Docusate Sodium 250 Mg Capsule PO 250 mg DAILY LYLY Administration Heparin Sodium (Porcine) 5,000 unit 03/09/23 21:00 03/14/23 07:57 Heparin 5,000 Unit/Ml Vial SUBQ 5,000 unit BID LYLY Administration Ceftriaxone Sodium 2 gm/ 100 mls @ 200 mls/hr 03/10/23 09:00 03/14/23 09:50 Sodium Chloride IV 03/15/23 15:56 Infused DAILY LYLY Infusion Losartan Potassium 100 mg 03/11/23 09:00 03/14/23 07:51 Losartan 50 Mg Tablet PO 100 mg DAILY LYLY Administration Nystatin 1 applic 03/09/23 21:00 03/14/23 07:50 Nystatin Powder 15 Gm TOP 1 applic BID LYLY Administration Polyethylene Glycol 17 gm 03/11/23 09:00 03/14/23 07:50 Polyethylene Glycol 3350 17 Gm Packet PO 17 gm DAILY LYLY Administration Prazosin HCl 5 mg 03/10/23 21:00 03/13/23 20:41 Prazosin 1 Mg Capsule PO 5 mg QPM LYLY Administration Sertraline HCl 150 mg 03/11/23 08:00 03/14/23 07:52 Sertraline 50 Mg Tablet PO 150 mg QDBREAKFAST LYLY Administration Sodium Chloride 10 ml 03/09/23 17:00 03/14/23 07:55 Sodium Chloride Flush 0.9% 10 Ml Syringe IVP 10 ml 0100,0900,1700 LYLY Administration Sumatriptan Succinate 6 mg 03/10/23 11:02 03/13/23 20:07 Sumatriptan 6 Mg/0.5 Ml Vial SUBQ 6 mg Q2H PRN Administration MIGRAINE - Lab Result Fish Bone Diagrams: 03/12/23 04:48 03/12/23 04:48 - Additional Planning My Orders: My Active Orders 03/15/23 08:00 metFORMIN [Glucophage] 1,000 mg PO BIDWM Subjective - Subjective Patient Reports: Feeling Better (Only short of breath when she walks. Overnight she did need 1 to 1.5 L/min O2 supplemental) Objective Vital Signs: Vital Signs - 24 hr 03/13/23 03/14/23 03/14/23 23:32 00:23 07:21 Temperature 36.5 C Heart Rate 98 Heart Rate [ 107 H Brachial] Respiratory 20 20 Rate Blood Pressure [Right Brachial artery] Blood Pressure 146/65 H [Right Radial artery] O2 Saturation 92 94 If not protocol 1 1 1.5 : Oxygen Flow, liters/minute 03/14/23 03/14/23 03/14/23 07:56 14:52 15:57 Temperature 36.4 C L 36.5 C Heart Rate 98 Heart Rate [ 93 98 Brachial] Respiratory 18 20 18 Rate Blood Pressure 139/87 H 144/77 H [Right Brachial artery] Blood Pressure [Right Radial artery] O2 Saturation 94 92 If not protocol : Oxygen Flow, liters/minute Oxygen O2 Source [With Activity] Nasal cannula O2 Source [Without Activity] Room air O2 Source Room air I&O (Last 24 Hrs): Intake and Output Totals x24h 03/12/23 03/13/23 03/14/23 23:59 23:59 23:59 Intake Total 1917 1210 1540 Output Total 675 802 300 Balance 3956 838 8410 General: Alert, Oriented x3, Other (Morbidly obese) HEENT: Mucous membr. moist/pink Neck: Supple Neuro: Alert, Non Focal Cardiovascular: Other (Distant heart sounds due to morbid obesity and large breasts) Respiratory: No respiratory distress, Breath sounds nml Abdomen: Soft, Other (Obese with pannus) Extremities: No clubbing, No edema, No tenderness/swelling - Results Results: Laboratory Results WBC 5.5 x10^3/uL (4.8-10.8) 03/12/23 04:48 RBC 3.62 10^6/uL (4.20-5.40) L 03/12/23 04:48 Hgb 11.3 g/dL (12.0-16.0) L 03/12/23 04:48 Hct 35.1 % (37.0-47.0) L 03/12/23 04:48 MCV 97.0 fL (81.0-99.0) 03/12/23 04:48 MCH 31.2 pg (27.0-31.0) H 03/12/23 04:48 MCHC 32.2 g/dL (32.0-36.0) 03/12/23 04:48 RDW 12.4 % (12.0-15.0) 03/12/23 04:48 Plt Count 221 10^3/uL (130-450) 03/12/23 04:48 MPV 9.6 fL (7.9-10.8) 03/12/23 04:48 Neut # (Auto) 3.2 10^3/uL (1.5-6.6) 03/12/23 04:48 Lymph # (Auto) 1.4 10^3/uL (1.5-3.5) L 03/12/23 04:48 [place] # (Auto) 0.6 10^3/uL (0.0-1.0) 03/12/23 04:48 Eos # (Auto) 0.3 10^3/uL (0.0-0.7) 03/12/23 04:48 Baso # (Auto) 0.0 10^3/uL (0.0-0.1) 03/12/23 04:48 Absolute Nucleated RBC 0.00 x10^3/uL 03/12/23 04:48 Nucleated RBC % 0.0 /100WBC 03/12/23 04:48 Sodium 141 mmol/L (135-145) 03/12/23 04:48 Potassium 4.7 mmol/L (3.5-5.0) 03/12/23 04:48 Chloride 106 mmol/L (101-111) 03/12/23 04:48 Carbon Dioxide 29 mmol/L (21-32) 03/12/23 04:48 Anion Gap 6.0 (6-13) 03/12/23 04:48 BUN 16 mg/dL (6-20) 03/12/23 04:48 Creatinine 0.9 mg/dL (0.4-1.0) 03/12/23 04:48 Estimated GFR (MDRD) 62 (>89) L 03/12/23 04:48 Glucose 111 mg/dL (70-100) H 03/12/23 04:48 POC Whole Bld Glucose 100 mg/dL (70 - 100) 03/13/23 07:46 Estimat Average Glucose 120 mg/dL (70-100) H 03/09/23 15:57 Hemoglobin A1c % 5.8 % (4.27-6.07) 03/09/23 15:57 Calcium 9.1 mg/dL (8.5-10.3) 03/12/23 04:48 Total Bilirubin 0.4 mg/dL (0.2-1.0) 03/09/23 10:55 AST 18 IU/L (10-42) 03/09/23 10:55 ALT 16 IU/L (10-60) 03/09/23 10:55 Alkaline Phosphatase 82 IU/L (42-121) 03/09/23 10:55 Total Protein 8.2 g/dL (6.7-8.2) 03/09/23 10:55 Albumin 3.7 g/dL (3.2-5.5) 03/09/23 10:55 Globulin 4.5 g/dL (2.1-4.2) H 03/09/23 10:55 Albumin/Globulin Ratio 0.8 (1.0-2.2) L 03/09/23 10:55 Vitamin B12 109 pg/mL (180-914) L 03/10/23 05:39 Folate 10.27 ng/mL (5.90 - >24.8) 03/10/23 05:39 Nasal Adenovirus (PCR) NOT DETECTED 03/09/23 15:00 Nasal B. parapertussis DNA (PCR) NOT DETECTED 03/09/23 15:00 Nasal Coronavir 229E PCR NOT DETECTED 03/09/23 15:00 Nasal Coronavir HKU1 PCR NOT DETECTED 03/09/23 15:00 Nasal Coronavir NL63 PCR NOT DETECTED 03/09/23 15:00 Nasal Coronavir OC43 PCR NOT DETECTED 03/09/23 15:00 Nasal Enterovir/Rhinovir PCR NOT DETECTED 03/09/23 15:00 Nasal Influenza B PCR NOT DETECTED 03/09/23 15:00 Nasal Influenza A PCR NOT DETECTED 03/09/23 15:00 Nasal Parainfluen 1 PCR NOT DETECTED 03/09/23 15:00 Nasal Parainfluen 2 PCR NOT DETECTED 03/09/23 15:00 Nasal Parainfluen 3 PCR NOT DETECTED 03/09/23 15:00 Nasal Parainfluen 4 PCR NOT DETECTED 03/09/23 15:00 Nasal RSV (PCR) NOT DETECTED 03/09/23 15:00 Nasal B.pertussis DNA PCR NOT DETECTED 03/09/23 15:00 Nasal C.pneumoniae (PCR) NOT DETECTED 03/09/23 15:00 Ubaldo Human Metapneumo PCR NOT DETECTED 03/09/23 15:00 Nasal M.pneumoniae (PCR) NOT DETECTED 03/09/23 15:00 Nasal SARS-CoV-2 (PCR) NOT DETECTED 03/09/23 15:00 - Procedures Procedures: Procedures RELEASE LEFT HAND TENDON, OPEN APPROACH (09/07/15) RELEASE RIGHT HAND TENDON, OPEN APPROACH (12/22/15)
[2023-03-14] MEDS: SUMAtriptan 6 MG/0.5 ML VIAL SUBQ PRN (18:54)
[2023-03-14] MEDS: PRAZOSIN 1 MG CAPSULE PO SCH (21:23)
[2023-03-15] MEDS: SODIUM CHLORIDE FLUSH 0.9% 10 ML SYRINGE IVP SCH ×2 (00:16→08:53)
[2023-03-15] MEDS: IPRATROPIUM/ALBUTEROL 3 ML NEB INH SCH (06:47)
[2023-03-15] MEDS ORDERED: metFORMIN 500 MG TABLET PO SCH (08:00)
[2023-03-15 08:46] VITALS: BP 144/69
[2023-03-15] MEDS: cefTRIAXone 2 GM in SODIUM CHLORIDE 0.9% MINIBAG 100 ML IV SCH (08:51)
[2023-03-15] MEDS: buPROPion SR 150 MG TABLET PO SCH (08:52)
[2023-03-15] MEDS: CYANOCOBALAMIN 500 MCG TABLET PO SCH (08:52)
[2023-03-15] MEDS: DOCUSATE SODIUM 250 MG CAPSULE PO SCH (08:52)
[2023-03-15] MEDS: LOSARTAN 50 MG TABLET PO SCH (08:52)
[2023-03-15] MEDS: CLOPIDOGREL 75 MG TABLET PO SCH (08:52)
[2023-03-15] MEDS: HEPARIN 5,000 UNIT/ML VIAL SUBQ SCH (08:53)
[2023-03-15] MEDS: NYSTATIN POWDER 15 GM TOP SCH (11:03)
[2023-03-15] MEDS: SERTRALINE 50 MG TABLET PO SCH (11:03)
[2023-03-15] MEDS: polyethylene glycoL 3350 17 GM PACKET PO SCH (11:03)
--- NOTE | 2023-03-15 11:21 | Discharge Plan ---
Discharge Plan Problem Reviewed?: Yes Disposition: Home, Self Care Condition: Fair Prescriptions: Cyanocobalamin [Vitamin B-12] 500 mcg PO BID #60 tab Diet: Diabetic Activity Restrictions: Activity as Tolerated Shower Restrictions: No Driving Restrictions: Yes Assistance Devices: Walker Health Concerns: You needed to be hospitalized because of low oxygen levels which were caused by a pneumonia. You have completed the antibiotics to treat the pneumonia. Your oxygen levels are now normal breathing room air. You are being discharged home. It is advised that you restart getting all the caregiver help that you usually have and get assistance from family if needed. In addition, I have ordered a Home Health agency to provide you with an RN, bath aide, physical therapist, and occupational therapist. Please resume all your usual pre-Hospital medications. In addition we found you to be anemic from a low B12 level therefore you are now on a B12 vitamin supplement to take twice a day for a month. The new prescription was electronically sent to your [facility] pharmacy in [place]. You should have a appointment with your primary care provider in the next 1 to 2 weeks, as a hospital follow-up visit. Plan of Treatment: As above. Care Goals: Improvement in symptoms and stabilization are the goals. Assessment: The patient understands and is agreeable with the plan. Additional Instructions or Follow Up instructions: If you have new or worsening symptoms, call your primary care provider for advice, or come to an ER. Follow-Up Care: Home Health - RN, Home Health - PT, Home Health - OT No Smoking: If you smoke, Please STOP! Call for help. Follow-up with: Trent Villarreal MD [Provider Admit Priv/Credential] -
--- NOTE | 2023-03-15 12:20 | DISCHARGE SUMMARY ---
Discharge Summary Admit Date: 03/09/23 Discharge Date: 03/15/23 Discharging Provider: Dr Tangela Grimes Primary Care Provider: Dr Quang Hernandez Condition at Discharge: Fair Discharge Disposition: 01 Home, Self Care - HPI History of Present Illness: This is a 72-year-old female who lives at home but does have caregivers come in several times per week. She has a history of COPD hypertension atrial fibrillation type 2 diabetes morbid obesity who presents with ground-level fall. She has admitted to no fevers but does admit to coughing and she was found to be hypoxic in the field and placed on O2 supplementation via nasal cannula. CT of head without contrast revealed no acute abnormalities and chest x-ray showed bilateral perihilar airspace opacities greater in the right upper lung field consistent with a diffuse pneumonia. She was started on IV Rocephin and IV azithromycin in the emergency room. Respiratory PCR is pending at the time of this dictation. - HOSPITAL COURSE Hospital Course: (1) Acute respiratory failure with hypoxia Patient required supplemental oxygen to maintain O2 sats >92%. On 03/12, patient had some pleuritic type chest pain in her left upper chest area, so a CTA with PE protocol was done, which did not reveal pulmonary emboli but did image her current pneumonia. Her supplemental O2 was weaned slowly down to room air. On the day of discharge, she underwent an oximetry walk test and did not desaturate below 90%, did not need home O2. (2) Pneumonia Her respiratory PCR came back negative. She did not produce a sputum sample to send for culture. All blood cultures were negative. She was treated with Rocephin 2 g IV daily and Azithromycin IV daily x5 days. She had improvement and completed her course of antibiotics while here, and was able to be discharged home. (3) T2DM (type 2 diabetes mellitus) She was put on insulin and a diabetic diet. The metformin was not restarted until [address] done with contrast. Her hemoglobin A1c came back at 5.8, indicating very good control. She was not on long-acting insulin here and was running glucoses in the 120s. Therefore, she was advised to just use correction insulin with meals after discharge, and not resume her long-acting insulin unless fingerstick glu was >210, and to continue with her Metformin after discharge. (4) Morbid obesity with BMI of 40.0-44.9, adult Given her morbid obesity, OT and PT were ordered. PT learned that she uses a w alker and also has caregivers. PT recommended Home Health service for more rehab and help at home, which was ordered for her (5) B12 deficiency She was started on B12 supplement and discharged home with a new prescription for this. - ALLERGIES Allergies/Adverse Reactions: Allergies Allergy/AdvReac Type Severity Reaction Status Date / Time vancomycin Allergy Hives Verified 12/13/21 12:51 - MEDICATIONS Home Medications: Ambulatory Orders Medication Instructions Recorded Confirmed Clopidogrel [Plavix] 75 mg PO DAILY 01/06/14 03/10/23 Sertraline HCl [Zoloft] 150 mg PO QDBREAKFAST 12/03/14 03/10/23 Bupropion HCl [Wellbutrin Sr] 300 mg PO DAILY 03/22/16 03/10/23 metFORMIN [Glucophage] 1,000 mg PO BID 03/22/16 03/10/23 Albuterol Sulfate [Proventil Hfa 2 puffs IH Q4H PRN 03/09/23 03/10/23 Inhaler] Gabapentin [Neurontin] 800 mg PO TID PRN 03/09/23 03/10/23 Irbesartan [Avapro] 300 mg PO DAILY 03/09/23 03/10/23 Prazosin HCl [Minipress] 5 mg PO QPM 03/09/23 03/10/23 Nystatin 1 applic TOP DAILY 03/10/23 03/10/23 Sumatriptan Inj [Imitrex Inj] 0.5 ml SQ ONCE MDD 1ML 03/10/23 03/10/23 Tiotropium [place] [Spiriva 2 puffs INH DAILY 03/10/23 03/10/23 Respimat] Cyanocobalamin [Vitamin B-12] 500 mcg PO BID #60 tab 03/15/23 - PHYSICAL EXAM AT DISCHARGE General Appearance: positive: No acute distress, Alert Eyes Bilateral: positive: Normal inspection, EOMI ENT: positive: ENT inspection nml, No signs of dehydration Neck: positive: Nml inspection, No JVD Respiratory: positive: No respiratory distress, Breath sounds nml Cardiovascular: positive: Regular rate & rhythm, No murmur (Distant heart sounds due to obesity) Abdomen: positive: Non-tender, Nml bowel sounds, Other (Obese with a pannus) Skin: positive: Warm, Dry Extremities: positive: Non-tender, No pedal edema Neurologic/Psychiatric: positive: Oriented x3, Motor nml - LABS Result Diagrams: 03/12/23 04:48 03/12/23 04:48 - DIAGNOSTIC IMAGING Diagnostic Imaging Results: Final report reviewed - FOLLOW UP Follow Up: See PCP in 1 to 2 weeks for hospital follow-up visit. - TIME SPENT Time Spent in Discharge (Minutes): 45
== END 2023-03-15 12:40 | disposition home or self-care (01) | DRG 189 ==
LOC: EDUNIT# → ED 10:46 → MS2 15:17
PROVIDERS: ADMIT Specialist; ATTEND Internal Medicine
DX: J96.01 Acute respiratory failure with hypoxia (principal); R09.02 Hypoxemia; N28.9 Disorder of kidney and ureter, unspecified; E86.0 Dehydration; J18.9 Pneumonia, unspecified organism; G43.909 Migraine, unspecified, not intractable, without status migrainosus; Z68.42 Body mass index [BMI] 45.0-49.9, adult; E11.9 Type 2 diabetes mellitus without complications; J44.9 Chronic obstructive pulmonary disease, unspecified; I48.91 Unspecified atrial fibrillation; E66.01 Morbid (severe) obesity due to excess calories; I10 Essential (primary) hypertension; F32.A Depression, unspecified; S09.90XA Unspecified injury of head, initial encounter; R47.89 Other speech disturbances; R29.898 Other symptoms and signs involving the musculoskeletal system; Z20.822 Contact with and (suspected) exposure to COVID-19; W06.XXXA Fall from bed, initial encounter; Z66 Do not resuscitate; R07.81 Pleurodynia; D51.9 Vitamin B12 deficiency anemia, unspecified; Z79.84 Long term (current) use of oral hypoglycemic drugs; Y92.003 Bedroom of unspecified non-institutional (private) residence as the place of occurrence of the external cause; Z79.01 Long term (current) use of anticoagulants
CPT/HCPCS: 36415; 70450; 71045; 71260; 80048; 80053; 82607; 82746; 83036; 85025; 87040; 87633; 94640; 96361; 96374; 96375; 97116; 97162; 97166; 97530; 99284; 99285; A9270; Q9967

== ENCOUNTER 2023-03-22 10:50 | Outpatient (CLI) | payer MEDICARE, MEDICAID ==
--- NOTE | 2023-03-22 17:29 | XRAY Report ---
PROCEDURE: Chest 2 View X-Ray INDICATIONS: PNEUMONIA RIGH UPPER LOBE TECHNIQUE: 2 views of the chest were acquired. COMPARISON: None. FINDINGS: Surgical changes and devices: None. Lungs and pleura: No pleural effusions or pneumothorax. There is interval resolution of previously n oted right upper lobe infiltrate. No focal infiltrate is seen on the current study. Mediastinum: Mediastinal contours appear normal. Heart size is normal. Bones and chest wall: No suspicious bony lesions. Overlying soft tissues appear unremarkable. IMPRESSION: Interval resolution of previously noted right upper lobe infiltrate. No new infiltrates are seen. No pleural effusion or pneumothorax. Reviewed by: Nirav Guillen MD on 03/22/2023 5:28 PM PDT Approved by: Nirav Guillen MD on 03/22/2023 5:28 PM PDT Station ID: [id number]
== END 2023-03-22 10:51 | disposition home or self-care (01) ==
LOC: DI.N 10:50
PROVIDERS: ATTEND Family Medicine
DX: J18.9 Pneumonia, unspecified organism (principal)

== ENCOUNTER 2023-04-12 17:33 | Outpatient (CLI) | payer MEDICARE, MEDICAID | END 2023-04-12 23:59 | disposition critical access hospital (66) | LOC: EMS 17:33 | DX: R51.9 Headache, unspecified (principal); M53.3 Sacrococcygeal disorders, not elsewhere classified; R42 Dizziness and giddiness; W18.39XA Other fall on same level, initial encounter; Y93.01 Activity, walking, marching and hiking; Y92.480 Sidewalk as the place of occurrence of the external cause; Z79.02 Long term (current) use of antithrombotics/antiplatelets | CPT/HCPCS: A0425; A0429 ==

== ENCOUNTER 2023-04-12 17:54 | Emergency (ER) | payer MEDICARE, MEDICAID ==
[2023-04-12] MEDS ORDERED: SODIUM CHLORIDE 0.9% 1,000 ML IV STA (18:03)
--- NOTE | 2023-04-12 18:13 | ED Physician Documentation ---
PD HPI HEAD INJURY - Stated complaint Stated Complaint: GLF/HIT HEAD - Chief complaint Chief Complaint: Trauma Hd/Nk - History obtained from History obtained from: Patient - History of Present Illness Mechanism of head injury: Fell Where head injury occurred: Street Pain level max: 5 Pain level now: 5 Quality of pain: Pain, Aching Associated symptoms: No: LOC, AMS, Amnesia, Nausea / vomiting, Neck pain, Paresthesias, Seizures, Ear drainage, Nasal drainage Contributing factors: Anticoagulated. No: Intoxicated - Additional information Additional information: Patient is a 72-year-old female who presents to the emergency department stating that she has been feeling lightheaded and dizzy today, states that she did not eat or drink much she tripped and fell striking her head on the pavement. She is on Plavix. She struck the back of her head. She states that she has tailbone pain as well. Worse with movement, better with rest. No loss of consciousness. No chest pain. No shortness of breath. Review of Systems Constitutional: denies: Fever, Chills GI: denies: Vomiting, Diarrhea Skin: denies: Rash Musculoskeletal: denies: Back pain Neurologic: denies: Focal weakness, Numbness, Headache PD PAST MEDICAL HISTORY - Past Medical History Cardiovascular: Hypertension, Atrial fibrillation Respiratory: COPD, Shortness of breath, CPAP use Neuro: CVA, TIA, Peripheral neuropathy Endocrine/Autoimmune: Type 2 diabetes GI: Hiatal hernia, Cholelithiasis STRIPER: None : Retention HEENT: Other Psych: Depression Musculoskeletal: Osteoarthritis, Chronic back pain Derm: None - Past Surgical History Past Surgical History: Yes General: Cholecystectomy, Appendectomy, Bowel surgery, Hiatal hernia repair, Colonoscopy Ortho: Other /STRIPER: section HEENT: Tonsil/Adenoidectomy - Present Medications Home Medications: Ambulatory Orders Medication Instructions Recorded Confirmed Clopidogrel [Plavix] 75 mg PO DAILY 01/06/14 03/10/23 Sertraline HCl [Zoloft] 150 mg PO QDBREAKFAST 12/03/14 03/10/23 Bupropion HCl [Wellbutrin Sr] 300 mg PO DAILY 03/22/16 03/10/23 metFORMIN [Glucophage] 1,000 mg PO BID 03/22/16 03/10/23 Albuterol Sulfate [Proventil Hfa 2 puffs IH Q4H PRN 03/09/23 03/10/23 Inhaler] Gabapentin [Neurontin] 800 mg PO TID PRN 03/09/23 03/10/23 Irbesartan [Avapro] 300 mg PO DAILY 03/09/23 03/10/23 Prazosin HCl [Minipress] 5 mg PO QPM 03/09/23 03/10/23 Nystatin 1 applic TOP DAILY 03/10/23 03/10/23 Sumatriptan Inj [Imitrex Inj] 0.5 ml SQ ONCE MDD 1ML 03/10/23 03/10/23 Tiotropium [place] [Spiriva 2 puffs INH DAILY 03/10/23 03/10/23 Respimat] Cyanocobalamin [Vitamin B-12] 500 mcg PO BID #60 tab 03/15/23 - Allergies Allergies/Adverse Reactions: Allergies Allergy/AdvReac Type Severity Reaction Status Date / Time vancomycin Allergy Hives Verified 04/12/23 18:02 - Social History Does the pt smoke?: No Smoking Status: Never smoker Does the pt drink ETOH?: No Does the pt have substance abuse?: No - Immunizations Immunizations are current?: Yes Immunizations: TDAP >10years/unknown - POLST Patient has POLST: Yes POLST Status: DNR PD ED PE NORMAL - Vitals Vital signs reviewed: Yes - General General: Alert and oriented X 3, No acute distress, Well developed/nourished - HEENT HEENT: Atraumatic (No scalp hematomas. No palpable skull fractures.), PERRL, Moist mucous membranes - Neck Neck: Supple, no meningeal sign, No bony TTP (No midline tenderness palpation.) - Cardiac Cardiac: RRR, Strong equal pulses - Respiratory Respiratory: No respiratory distress, Clear bilaterally - Abdomen Abdomen: Soft, Non tender, Non distended - Back Back: No spinal TTP (No midline tenderness palpation.) - Derm Derm: Warm and dry - Extremities Extremities: No edema, No calf tenderness / cord - Neuro Neuro: Alert and oriented X 3, information assistant 2-12 intact, No motor deficit, No sensory d eficit, Normal speech Eye Opening: Spontaneous Motor: Obeys Commands Verbal: Oriented GCS Score: 15 - Psych Psych: Normal mood, Normal affect Results - Vitals Vitals: Vital Signs - 24 hr 04/12/23 21:23 Heart Rate 92 Respiratory 18 Rate Blood Pressure 144/79 H O2 Saturation 97 Oxygen O2 Source [] Nasal cannula O2 Source [] Room air O2 Source Room air - EKG (time done) 1805 EKG releavant findings:: EKG personally interpreted by author of this note. Relevant findings are: Rate: Rate (enter#) (91) Rhythm: NSR Dailey: Normal Intervals: Normal [place] QRS: Normal Ischemia: Normal ST segments - Labs Labs: Laboratory Tests 04/12/23 04/12/23 18:42 18:42 WBC 7.4 RBC 3.94 L Hgb 11.9 L Hct 37.6 MCV 95.4 MCH 30.2 MCHC 31.6 L RDW 13.0 Plt Count 255 MPV 9.3 Neut # (Auto) 4.8 Lymph # (Auto) 1.7 Andrews # (Auto) 0.6 Eos # (Auto) 0.2 Baso # (Auto) 0.1 Absolute Nucleated RBC 0.00 Nucleated RBC % 0.0 Sodium 138 Potassium 4.9 Chloride 105 Carbon Dioxide 27 Anion Gap 6.0 BUN 28 H Creatinine 1.2 H Estimated GFR (MDRD) 44 L Glucose 97 Calcium 9.1 Total Bilirubin 0.4 AST 14 ALT 16 Alkaline Phosphatase 85 Total Protein 7.7 Albumin 3.3 Globulin 4.4 H Albumin/Globulin Ratio 0.8 L - Rads (name of study) Head CT Relevant Findings:: Final report received, See rad report Cervical spine CT Relevant Findings:: Final report received, See rad report Pelvis CT Relevant Findings:: Final report received, See rad report PD Medical Decision Making - ED course Complexity details: reviewed results, re-evaluated patient, considered differential, d/w patient ED course: 72-year-old female with a fall today, she does complain of feeling lightheaded and dizzy, but has not been eating and drinking well. Symptoms resolved with IV fluids. Pain well controlled with Toradol and a dose of Vicodin. Head CT and cervical spine CT do not show any acute abnormalities. EKG does not show any acute abnormalities either. Her pelvis CT shows a possible nondisplaced fracture at the tip of the coccyx. She is ambulating well in the emergency department. Patient declines pain medication for home. No arrhythmias on telemetry. Not orthostatic. Patient counseled regarding signs and symptoms for which I believe and urgent re-evaluation would be necessary. Patient with good understanding of and agreement to plan and is comfortable going home at this time This document was made in part using voice recognition software. While efforts are made to proofread this document, sound alike and grammatical errors may occur. Departure - Departure Disposition: 01 Home, Self Care Clinical Impression: Fall Qualifiers: Encounter type: initial encounter Qualified Code(s): W19.XXXA - Unspecified fall, initial encounter Closed head injury Qualifiers: Encounter type: initial encounter Qualified Code(s): S09.90XA - Unspecified injury of head, initial encounter Fractured coccyx Qualifiers: Encounter type: initial encounter Fracture type: closed Qualified Code(s): S32.2XXA - Fracture of coccyx, initial encounter for closed fracture Condition: Good Instructions: ED Head Injury Closed Follow-Up: Quang Hernandez MD [Primary Care Provider] - Within 1 week Comments: Your head CT and cervical spine CT are normal. There may be a small non- displaced fracture at the tip of your coccyx (tail bone). Please follow up with your doctor for further care. Return if you worsen. Discharge Date/Time: 04/12/23 21:24
--- NOTE | 2023-04-12 18:49 | CT Report ---
PROCEDURE: CERVICAL SPINE WO INDICATIONS: fall, neck pain TECHNIQUE: Noncontrast 3 mm thick sections acquired from the skull base to the T4 level. Sagittal and coronal r eformats were then constructed. For radiation dose reduction, the following was used: automated exp osure control, adjustment of mA and/or kV according to patient size. COMPARISON: 12/10/2021. Correlation is made with the accompanying head CT. FINDINGS: Image quality: Excellent. Bones: No fractures or dislocations. Visualized superior ribs are intact. Underlying degenerative changes are seen, with at least moderate disc space narrowing seen at C3-C4, C4-C5, C5-C6, C6-C7, and C7-T1. 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 Moderate to severe canal narrowing can be seen at this level. There is reversal of the normal cervical lordosis, with the apex at the C4-C5 level. No significant AP alignment abnormality can be seen. Soft tissues: Prevertebral soft tissues are normal in thickness. No paravertebral hematomas. No ap ical pneumothoraces. IMPRESSION: Negative for acute fracture. Significant underlying degenerative changes are seen. 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 Reviewed by: Adis Calixto MD on 04/12/2023 5:47 PM COLIN Approved by: Adis Calixto MD on 04/12/2023 5:47 PM COLIN Station ID: [id number]
--- NOTE | 2023-04-12 18:50 | CT Report ---
PROCEDURE: HEAD WO INDICATIONS: fall, head pain TECHNIQUE: Noncontrast 4.5 mm thick angled axial sections acquired from the foramen magnum to the vertex. For r adiation dose reduction, the following was used: automated exposure control, adjustment of mA and/or kV according to patient size. COMPARISON: 04/08/2023, 12/10/2021. Correlation is made with the accompanying cervical spine CT. FINDINGS: Image quality: Excellent. CSF spaces: Basal cisterns are patent. No extra-axial fluid collections. Ventricles are normal in size and shape. Brain: No midline shift. No intracranial masses or hemorrhage. Loza-white matter interface is norm al. Remote bilateral frontal lobe infarctions are seen, which are stable. Skull and face: Calvarium and visualized facial bones are intact, without suspicious lesions. Hypero stosis frontalis is incidentally noted, which is not frankly abnormal for a female patient of this ag e. Sinuses: Visualized sinuses and mastoids are clear. IMPRESSION: No intracranial hemorrhage is seen. No significant intracranial abnormality is seen. Remote bilateral frontal lobe infarctions can be seen. Reviewed by: Adis Calixto MD on 04/12/2023 5:49 PM [id number] Approved by: Adis Calixto MD on 04/12/2023 5:49 PM AKDT Station ID: [id number]
[2023-04-12 18:53] LABS: BASOPHILS # (AUTO) 0.1 10^3/uL (0.0-0.1); BASOPHILS % (AUTO) 0.7 %; EOSINOPHILS # (AUTO) 0.2 10^3/uL (0.0-0.7); EOSINOPHILS % (AUTO) 2.7 %; HCT - HEMATOCRIT 37.6 % (37.0-47.0); HGB - HEMOGLOBIN 11.9 g/dL (12.0-16.0); LYMPHOCYTES # (AUTO) 1.7 10^3/uL (1.5-3.5); LYMPHOCYTES % (AUTO) 22.9 %; MEAN CORPUSCULAR HEMOGLOBIN 30.2 pg (27.0-31.0); MEAN CORPUSCULAR HGB CONC 31.6 g/dL (32.0-36.0); MEAN CORPUSCULAR VOLUME 95.4 fL (81.0-99.0); MEAN PLATELET VOLUME 9.3 fL (7.9-10.8); MONOCYTES # (AUTO) 0.6 10^3/uL (0.0-1.0); MONOCYTES % (AUTO) 7.8 %; NEUTROPHILS # (AUTO) 4.8 10^3/uL (1.5-6.6); NEUTROPHILS % (AUTO) 65.5 %; PLT - PLATELET COUNT 255 10^3/uL (130-450); RED BLOOD COUNT 3.94 10^6/uL (4.20-5.40); WHITE BLOOD COUNT 7.4 x10^3/uL (4.8-10.8)
[2023-04-12] MEDS ORDERED: HYDROcod/ACETAM 5/325 MG TABLET PO STA ×2 (18:56→20:54)
--- OUTSIDE RECORDS SUMMARY | 2023-04-12 19:00 | EXTERNAL MEDICAL SUMMARY RPT | Continuity of Care Document ---
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 (no reaction) (no se verity) Problems date description facility 2023-01-13 12:47 Radiculopathy, lumbar region Is [facility] 2023-01-18 00:00 History of candidal vulvovagini [facility] 2023-02-10 00:00 Osteoarthritis [facility] Procedures date description facility 2023-02-10 00:00 XR shoulder left, 2+ views [facility] 2023-01-13 00:00 MRI of lumbar spine without con [facility] 2023-01-13 00:00 MRI of lumbar spine without con [facility] 2023-02-10 00:00 X-ray of chest, single [facility] Results/Labs test date facility value unit notes Social History date description facility 2023-01-18 00:00 Never smoked tobacco (finding) [facility] 2023-02-10 00:00 Never smoked tobacco (finding) [facility] Vital Signs date measurement value units 2023-01-18 00:00 BMI 45.3 kg/m2 2023-01-18 00:00 BP_diastolic 68 mmHg 2023-01-18 00:00 BP_systolic 118 mmHg 2023-01-18 00:00 height_metric 162.56 cm 2023-01-18 00:00 height_standard 64 in 2023-01-18 00:00 weight_metric 119.74 kg 2023-01-18 00:00 weight_standard 263.98 lb 2023-02-10 00:00 BMI 43.4 kg/m2 2023-02-10 00:00 BP_diastolic 61 mmHg 2023-02-10 00:00 BP_systolic 130 mmHg 2023-02-10 00:00 heart_rate 94 /min 2023-02-10 00:00 height_metric 165.1 cm 2023-02-10 00:00 height_standard 65 in 2023-02-10 00:00 o2_saturation 92 % 2023-02-10 00:00 respiration_rate 15 /min 2023-02-10 00:00 temperature_metric 36.67 C 2023-02-10 00:00 temperature_standard 98 F 2023-02-10 00:00 weight_metric 118.38 kg 2023-02-10 00:00 weight_standard 260.98 lb
[2023-04-12 19:06] LABS: ALBUMIN 3.3 g/dL (3.2-5.5); ALBUMIN/GLOBULIN RATIO 0.8 (1.0-2.2); BILIRUBIN,TOTAL 0.4 mg/dL (0.2-1.0); CALCIUM 9.1 mg/dL (8.5-10.3); CREATININE 1.2 mg/dL (0.4-1.0); POTASSIUM 4.9 mmol/L (3.5-5.0); TOTAL PROTEIN 7.7 g/dL (6.7-8.2)
--- NOTE | 2023-04-12 19:08 | CT Report ---
PROCEDURE: PELVIS WO INDICATIONS: fall, tail bone pain TECHNIQUE: Noncontrast 3 mm axial sections acquired through the bony pelvis, with coronal and sagittal reformatt ing. For radiation dose reduction, the following was used: automated exposure control, adjustment of mA and/or kV according to patient size. COMPARISON: None. FINDINGS: Image quality: Excellent. Bones: Possible nondisplaced fracture of the tip of the coccyx. No sacral fracture. Postsurgical beth nges in the lower lumbar spine, partially visualized. Bony pelvis and hips are intact. Soft tissues: No soft tissue mass or hematoma. IMPRESSION: 1. Possible nondisplaced fracture of the tip of the coccyx. Reviewed by: Brittany Del Valle MD on 04/12/2023 7:06 PM PDT Approved by: Brittany Del Valle MD on 04/12/2023 7:06 PM PDT Station ID: [id number]
[2023-04-12 21:29] VITALS: BP 144/79
== END 2023-04-12 21:24 | disposition home or self-care (01) ==
LOC: EDUNIT# → ED 17:54
DX: S09.90XA Unspecified injury of head, initial encounter (principal); S32.2XXA Fracture of coccyx, initial encounter for closed fracture; W01.198A Fall on same level from slipping, tripping and stumbling with subsequent striking against other object, initial encounter; I10 Essential (primary) hypertension; I48.91 Unspecified atrial fibrillation; J44.9 Chronic obstructive pulmonary disease, unspecified; E11.42 Type 2 diabetes mellitus with diabetic polyneuropathy; Z86.73 Personal history of transient ischemic attack (TIA), and cerebral infarction without residual deficits; Z79.02 Long term (current) use of antithrombotics/antiplatelets; Z79.899 Other long term (current) drug therapy; Z79.84 Long term (current) use of oral hypoglycemic drugs
CPT/HCPCS: 36415; 70450; 72125; 72192; 80053; 85025; 93005; 99283; 99284; A9270

== ENCOUNTER 2023-06-12 18:42 | Outpatient (CLI) | payer MEDICARE, MEDICAID | END 2023-06-12 23:59 | disposition short-term general hospital (02) | LOC: EMS 18:42 | DX: R10.32 Left lower quadrant pain (principal); R11.0 Nausea; R10.814 Left lower quadrant abdominal tenderness | CPT/HCPCS: A0425; A0429; A0888 ==

== ENCOUNTER 2023-08-30 09:35 | Outpatient (CLI) | payer MEDICARE, MEDICAID ==
[2023-08-30 12:53] LABS: BASOPHILS # (AUTO) 0.1 10^3/uL (0.0-0.1); BASOPHILS % (AUTO) 0.8 %; EOSINOPHILS # (AUTO) 0.2 10^3/uL (0.0-0.7); HCT - HEMATOCRIT 42.5 % (37.0-47.0); HGB - HEMOGLOBIN 13.3 g/dL (12.0-16.0); LYMPHOCYTES # (AUTO) 1.6 10^3/uL (1.5-3.5); LYMPHOCYTES % (AUTO) 21.2 %; MEAN CORPUSCULAR HEMOGLOBIN 30.4 pg (27.0-31.0); MEAN CORPUSCULAR HGB CONC 31.3 g/dL (32.0-36.0); MEAN CORPUSCULAR VOLUME 97.3 fL (81.0-99.0); MEAN PLATELET VOLUME 9.9 fL (7.9-10.8); MONOCYTES # (AUTO) 0.6 10^3/uL (0.0-1.0); MONOCYTES % (AUTO) 7.3 %; NEUTROPHILS # (AUTO) 5.2 10^3/uL (1.5-6.6); NEUTROPHILS % (AUTO) 68.4 %; PLT - PLATELET COUNT 251 10^3/uL (130-450); RED BLOOD COUNT 4.37 10^6/uL (4.20-5.40); RED CELL DISTRIBUTION WIDTH 13.3 % (12.0-15.0); WHITE BLOOD COUNT 7.6 x10^3/uL (4.8-10.8)
[2023-08-30 13:06] LABS: ALBUMIN 3.9 g/dL (3.2-5.5); ALBUMIN/GLOBULIN RATIO 1.1 (1.0-2.2); ALKALINE PHOSPHATASE 86 IU/L (42-121); ALT ALANINE AMINOTRANSFERASE 11 IU/L (10-60); AST ASPARTATE AMINOTRANSFERASE 15 IU/L (10-42); BILIRUBIN,TOTAL 0.4 mg/dL (0.2-1.0); BUN - BLOOD UREA NITROGEN 23 mg/dL (6-20); CALCIUM 10.2 mg/dL (8.5-10.3); CARBON DIOXIDE - CO2 29 mmol/L (21-32); CHLORIDE 105 mmol/L (101-111); CHOL/HDL RATIO 2.8 (<4.4); CHOLESTEROL 156 mg/dL; GFR - MDRD 55 (>89); GLUCOSE 103 mg/dL (74-104); HDL CHOLESTEROL 55 mg/dL; LDL CHOLESTEROL,CALCULATED 73 mg/dL; LDL/HDL RATIO 1.3 (<4.4); POTASSIUM 4.7 mmol/L (3.5-4.5); SODIUM 139 mmol/L (135-145); TOTAL PROTEIN 7.6 g/dL (6.4-8.9); TRIGLYCERIDES 139 mg/dL (48-352); VLDL CHOLESTEROL 28 mg/dL
[2023-08-30 13:11] LABS: ESTIMATED AVERAGE GLUCOSE 117 mg/dL (70-100); HEMOGLOBIN A1c% 5.7 % (4.27-6.07)
[2023-08-30 13:13] LABS: CREATININE,URINE 85.4 mg/dL; MICROALBUM/CREATININE RATIO,UR 76.1 ug/mg (<30.0); MICROALBUMIN,URINE 6.5 mg/dL
== END 2023-08-30 09:36 | disposition home or self-care (01) ==
LOC: LAB.N 09:35
PROVIDERS: ATTEND Internal Medicine
DX: I10 Essential (primary) hypertension (principal); E11.42 Type 2 diabetes mellitus with diabetic polyneuropathy
CPT/HCPCS: 36415; 80053; 80061; 82043; 82570; 83036; 83721; 85025

== ENCOUNTER 2023-10-18 15:16 | Outpatient (CLI) | payer MEDICARE, MEDICAID | END 2023-10-18 15:17 | disposition short-term general hospital (02) | LOC: EMS 15:16 | DX: S00.11XA Contusion of right eyelid and periocular area, initial encounter (principal); H53.2 Diplopia; R47.1 Dysarthria and anarthria; R53.1 Weakness; R26.81 Unsteadiness on feet; W18.39XA Other fall on same level, initial encounter; Y93.01 Activity, walking, marching and hiking; Y92.003 Bedroom of unspecified non-institutional (private) residence as the place of occurrence of the external cause; R42 Dizziness and giddiness; Z79.01 Long term (current) use of anticoagulants | CPT/HCPCS: A0425; A0429 ==

== ENCOUNTER 2023-10-26 11:01 | Outpatient (CLI) | payer MEDICARE, MEDICAID ==
--- NOTE | 2023-10-26 15:16 | XRAY Report ---
PROCEDURE: Knee 3V LT INDICATIONS: LEFT KNEE PAIN TECHNIQUE: 3 views of the knee(s) were acquired. COMPARISON: None. FINDINGS: Bones: No fractures or dislocations. No suspicious bony lesions. There are small lateral patellofem oral compartment osteophytes. Soft tissues: No knee joint effusion. No suspicious soft tissue calcifications or masses. IMPRESSION: No acute bony abnormality. Mild degenerative change. Reviewed by: Jonna Chaudhry MD on 10/26/2023 3:15 PM PST Approved by: Jonna Chaudhry MD on 10/26/2023 3:15 PM PST Station ID: [id number]
== END 2023-10-26 11:02 | disposition home or self-care (01) ==
LOC: DI 11:01
PROVIDERS: ATTEND Internal Medicine
DX: M17.12 Unilateral primary osteoarthritis, left knee (principal)

== ENCOUNTER 2023-11-21 16:48 | Emergency (ER) | payer MEDICARE, MEDICAID ==
[2023-11-21 17:10] VITALS: BP 150/80; O2SAT 98
--- NOTE | 2023-11-21 19:57 | ED Physician Documentation ---
PD HPI LOWER EXT INJURY - Stated complaint Stated Complaint: LT LEG PX/SWELLING - Chief complaint Chief Complaint: Ext Problem - History obtained from History obtained from: Patient - Additional information Additional information: 73-year-old female presents for persistent left lower extremity pain and swelling. Patient had a ground-level fall 10 days ago and has been seen several times for pain in her leg. She states that x-rays have previously been negative and she has been able to bear weight with a walker, albeit with some difficulty. She was seen several days ago at [facility] ER for swelling and pain. She was discharged with antibiotics due to suspected infection, which she states she has finished. She continues to have pain and swelling in her left leg and is here today for repeat evaluation. She continues to be able to bear weight with a walker, however it does cause her pain. Denies numbness, weakness, tingling of her extremities. Review of Systems Constitutional: denies: Fever, Chills Cardiac: denies: Chest pain / pressure, Palpitations, Calf pain Respiratory: denies: Dyspnea, Cough, Wheezing GI: denies: Abdominal Pain, Nausea, Vomiting Musculoskeletal: reports: Extremity pain, Extremity swelling. 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: None : Retention HEENT: Other Psych: Depression Musculoskeletal: Osteoarthritis, Chronic back pain Derm: None - Past Surgical History Past Surgical History: Yes General: Cholecystectomy, Appendectomy, Bowel surgery, Hiatal hernia repair, Colonoscopy Ortho: Other /DOCUMENTATION ENGINEER: section HEENT: Tonsil/Adenoidectomy - Present Medications Home Medications: Ambulatory Orders Medication Instructions Recorded Confirmed Clopidogrel [Plavix] 75 mg PO DAILY 01/06/14 11/21/23 Sertraline HCl [Zoloft] 150 mg PO QDBREAKFAST 12/03/14 11/21/23 Bupropion HCl [Wellbutrin Sr] 300 mg PO DAILY 03/22/16 11/21/23 metFORMIN [Glucophage] 1,000 mg PO BID 03/22/16 11/21/23 Albuterol Sulfate [Proventil Hfa 2 puffs IH Q4H PRN 03/09/23 11/21/23 Inhaler] Gabapentin [Neurontin] 800 mg PO TID PRN 03/09/23 11/21/23 Irbesartan [Avapro] 300 mg PO DAILY 03/09/23 11/21/23 Nystatin 1 applic TOP DAILY 03/10/23 11/21/23 Sumatriptan Inj [Imitrex Inj] 0.5 ml SQ ONCE MDD 1ML 03/10/23 11/21/23 Tiotropium [place] [Spiriva 2 puffs INH DAILY 03/10/23 11/21/23 Respimat] Cyanocobalamin [Vitamin B-12] 500 mcg PO BID #60 tab 03/15/23 11/21/23 HYDROcod/ACETAM 5/325 [[place] 5/325] 1 - 2 tab PO Q6H PRN #12 tablet 11/21/23 Hydrocodone/Acetaminophen 1 each PO 11/21/23 [Hydrocodone-Acetamin 5-300 mg] - Allergies Allergies/Adverse Reactions: Allergies Allergy/AdvReac Type Severity Reaction Status Date / Time vancomycin Allergy Hives Verified 11/21/23 16:55 - Social History Does the pt smoke?: No Smoking Status: Never smoker Does the pt drink ETOH?: No Does the pt have substance abuse?: No - Immunizations Immunizations are current?: Yes Immunizations: TDAP >10years/unknown - POLST Patient has POLST: Yes POLST Status: DNR PD ED PE NORMAL - Vitals Vital signs reviewed: Yes - General General: Alert and oriented X 3, No acute distress, Other (Debilitated, frail, morbidly obese, chronically unwell appearing) - Cardiac Cardiac: RRR - Respiratory Respiratory: No respiratory distress, Clear bilaterally - Abdomen Abdomen: Soft, Non tender, Non distended - Derm Derm: Warm and dry, Other (Bruising in various stages of left lower extremity distal to knee, erythema without warmth over anterior beard) - Extremities Extremities: No deformity, Other (Compartments soft, bruising left lower extremity distal to knee, mild erythema without warmth present, DP pulses intact bilaterally) - Neuro Neuro: Alert and oriented X 3, videotape operator 2-12 intact, No motor deficit, Normal speech Results - Vitals Vitals: Vital Signs - 24 hr 11/21/23 16:57 Temperature 36 C L Heart Rate 91 Respiratory 20 Rate Blood Pressure 150/80 H O2 Saturation 98 Oxygen O2 Source [With Activity] Nasal cannula O2 Source [Without Activity] Room air O2 Source Room air PD Medical Decision Making - ED course Complexity details: reviewed old records, reviewed results, re-evaluated patient, considered differential, d/w patient ED course: Patient with persistent lower extremity pain and swelling after a fall 10 days prior. Neurovascularly intact with soft compartments. She does have marked swelling distal to the left knee, with bruising in various stages of healing. There is some erythema overlying the anterior beard, however this does not appear to be consistent with cellulitis. Will order repeat x-ray and ultrasound imaging of the lower extremity. X-rays negative for new fracture. Ultrasound shows no DVT, she has a large hematoma distal to the knee, which is likely the source of her symptoms. Pa tient placed in Kev wrap bandage for compression and instructed to keep her limb elevated and to apply ice for swelling and comfort. She was instructed to follow-up with her orthopedic surgeon for further monitoring of her hematoma. Departure - Departure Disposition: 01 Home, Self Care Clinical Impression: Pain in extremity Qualifiers: Extremity pain location: lower leg Laterality: left Qualified Code(s): M79.662 - Pain in left lower leg Leg hematoma Qualifiers: Encounter type: initial encounter Laterality: left Qualified Code(s): S80.12XA - Contusion of left lower leg, initial encounter Condition: Stable Instructions: ED Hematoma Prescriptions: HYDROcod/ACETAM 5/325 [[place] 5/325] 1 - 2 tab PO Q6H PRN #12 tablet PRN Reason: Pain Comments: Wear the Kev wrap bandage is much as possible to help compress the hematoma. Elevate your limb whenever possible to help with swelling and apply ice as needed for comfort. A short course of pain medication has been sent to your the [facility] in [place]. Please follow-up with your orthopedic surgeon for further monitoring of this hematoma. Forms: PCP List
[2023-11-21] MEDS: oxyCODONE 5 MG TABLET PO STA (20:51)
--- NOTE | 2023-11-21 21:29 | XRAY Report ---
PROCEDURE: Knee 3V LT INDICATIONS: FALL 10 DAYS AGO, PERSISTENT PAIN TECHNIQUE: 3 views of the knee(s) were acquired. COMPARISON: None. FINDINGS: Bones: No acute or subacute fractures or dislocations. No suspicious bony lesions. Tricompartmental degenerative changes. Soft tissues: No substantial knee joint effusion. No suspicious soft tissue calcifications or masses . IMPRESSION: No acute bony abnormality. No reactive changes of subacute fracture healing noted. Tricompartmental o steoarthrosis. If there is continued clinical concern for pathology or occult fracture, consider follow-up imaging w ith repeat radiographs in 10-14 days and possible advanced imaging (CT, MRI, bone scan) if symptoms p ersist. Reviewed by: Richmond Michaels MD on 11/21/2023 9:28 PM PST Approved by: Richmond Michaels MD on 11/21/2023 9:28 PM PST Station ID: [id number]
--- NOTE | 2023-11-21 21:32 | Ultrasound Report ---
PROCEDURE: Duplex Ext Veins Left INDICATIONS: swelling/pain LLE TECHNIQUE: Real-time imaging, as well as color and pulse Doppler interrogation, were performed of the lower extr emity deep veins from the inguinal ligament to the popliteal fossa. Attempted visualization of the ca lf veins was performed. COMPARISON: Radiographs from same day FINDINGS: The deep veins are normally compressible, and free of intraluminal thrombus. Color and pu lse Doppler demonstrate normal phasic intraluminal flow. There is normal augmentation response to di stal compression maneuver. There is a heterogeneous nonvascular fluid collection over the anterior k nee measuring 4.9 x 1.7 x 2.1 cm in size. IMPRESSION: No deep venous thrombosis of the visualized lower extremity. Nonvascular, heterogeneous fluid collection in the anterior knee possibly representing a hematoma. Reviewed by: Richmond Michaels MD on 11/21/2023 9:31 PM PST Approved by: Richmond Michaels MD on 11/21/2023 9:31 PM PST Station ID: [id number]
== END 2023-11-21 21:49 | disposition home or self-care (01) ==
LOC: ED 16:48
DX: S80.12XA Contusion of left lower leg, initial encounter (principal); W18.30XA Fall on same level, unspecified, initial encounter; I10 Essential (primary) hypertension; I48.91 Unspecified atrial fibrillation; J44.9 Chronic obstructive pulmonary disease, unspecified; E11.42 Type 2 diabetes mellitus with diabetic polyneuropathy; Z66 Do not resuscitate; Z86.73 Personal history of transient ischemic attack (TIA), and cerebral infarction without residual deficits; Z79.02 Long term (current) use of antithrombotics/antiplatelets; Z79.84 Long term (current) use of oral hypoglycemic drugs; Z79.899 Other long term (current) drug therapy; Z79.51 Long term (current) use of inhaled steroids
CPT/HCPCS: 73562; 93971; 99284; A9270

== ENCOUNTER 2024-01-10 09:13 | Outpatient (CLI) | payer MEDICARE, MEDICAID ==
[2024-01-10 12:00] LABS: BASOPHILS # (AUTO) 0.1 10^3/uL (0.0-0.1); BASOPHILS % (AUTO) 0.7 %; EOSINOPHILS # (AUTO) 0.2 10^3/uL (0.0-0.7); EOSINOPHILS % (AUTO) 2.1 %; HGB - HEMOGLOBIN 13.4 g/dL (12.0-16.0); LYMPHOCYTES # (AUTO) 2.1 10^3/uL (1.5-3.5); LYMPHOCYTES % (AUTO) 25.9 %; MEAN CORPUSCULAR HEMOGLOBIN 29.3 pg (27.0-31.0); MEAN CORPUSCULAR HGB CONC 30.5 g/dL (32.0-36.0); MEAN CORPUSCULAR VOLUME 96.3 fL (81.0-99.0); MEAN PLATELET VOLUME 9.7 fL (7.9-10.8); MONOCYTES # (AUTO) 0.6 10^3/uL (0.0-1.0); MONOCYTES % (AUTO) 7.2 %; NEUTROPHILS # (AUTO) 5.3 10^3/uL (1.5-6.6); NEUTROPHILS % (AUTO) 63.9 %; PLT - PLATELET COUNT 283 10^3/uL (130-450); RED BLOOD COUNT 4.57 10^6/uL (4.20-5.40); RED CELL DISTRIBUTION WIDTH 14.6 % (12.0-15.0); WHITE BLOOD COUNT 8.3 x10^3/uL (4.8-10.8)
[2024-01-10 12:15] LABS: CALCIUM 10.2 mg/dL (8.5-10.3); CREATININE 1.1 mg/dL (0.6-1.3); POTASSIUM 4.6 mmol/L (3.5-4.5)
[2024-01-10 12:43] LABS: ESTIMATED AVERAGE GLUCOSE 128 mg/dL (70-100); HEMOGLOBIN A1c% 6.1 % (4.27-6.07)
== END 2024-01-10 09:14 | disposition home or self-care (01) ==
LOC: LAB.N 09:13
PROVIDERS: ATTEND Internal Medicine
DX: E11.42 Type 2 diabetes mellitus with diabetic polyneuropathy (principal); D47.2 Monoclonal gammopathy
CPT/HCPCS: 36415; 80048; 83036; 85025

== ENCOUNTER 2024-01-11 08:15 | Outpatient (CLI) | payer MEDICARE, MEDICAID ==
--- NOTE | 2024-01-11 12:01 | XRAY Report ---
PROCEDURE: Ankle 3+V RT INDICATIONS: ANKLE PAIN, RIGHT TECHNIQUE: 3 views of the ankle were acquired. COMPARISON: None. FINDINGS: Bones: No fractures or dislocations. Ankle mortise is normally aligned. No suspicious bony lesions . Plantar calcaneal enthesophyte. Partially visualized screw fixation of the first metatarsal. Soft tissues: No tibiotalar joint effusion. Achilles tendon appears normal. A pair of well-cortica guillermina ossification along the lateral aspect of the talus measuring 2 to 3 mm. IMPRESSION: No acute bony abnormality. No tibiotalar effusion. A pair of well-corticated ossification along the lateral aspect of the talus measuring 2 to 3 mm. Loc ation favors dystrophic calcification, less likely sequela of remote avulsion fracture. Reviewed by: Cole Pérez MD on 01/11/2024 11:59 AM PDT Approved by: Cole Pérez MD on 01/11/2024 11:59 AM PDT Station ID: [id number]
== END 2024-01-11 08:30 | disposition home or self-care (01) ==
LOC: DI.N 08:15
PROVIDERS: ATTEND Physician Assistant
DX: M25.571 Pain in right ankle and joints of right foot (principal)

== ENCOUNTER 2024-01-14 13:42 | Outpatient (CLI) | payer MEDICARE, MEDICAID ==
--- NOTE | 2024-01-14 17:29 | Ultrasound Report ---
PROCEDURE: Duplex Ext Veins Right INDICATIONS: RIGHT ANKLE PAIN TECHNIQUE: Real-time imaging, as well as color and pulse Doppler interrogation, were performed of the lower extr emity deep veins from the inguinal ligament to the popliteal fossa. Attempted visualization of the ca lf veins was performed. COMPARISON: None. FINDINGS: The deep veins are normally compressible, and free of intraluminal thrombus. Color and pu lse Doppler demonstrate normal phasic intraluminal flow. There is normal augmentation response to di stal compression maneuver. IMPRESSION: No deep venous thrombosis of the visualized lower extremity. Reviewed by: Tamar Chaudhari MD on 01/14/2024 5:28 PM PDT Approved by: Tamar Chaudhari MD on 01/14/2024 5:28 PM PDT Station ID: [id number]
== END 2024-01-14 13:43 | disposition home or self-care (01) ==
LOC: DI 13:42
PROVIDERS: ATTEND Physician Assistant
DX: M25.571 Pain in right ankle and joints of right foot (principal)